=== PATIENT | female | born 1935 | race Caucasian/White ===

== ENCOUNTER 2018-03-12 17:09 | Emergency (ER) | payer MEDICARE ==
[~2018-03-12] VITALS: Ht 157.5 cm; Wt 68.0 kg
[~2018-03-12 17:09] MED LIST: AMITIZA24 MCG PO; ASPIR 8181 MG PO; IBUPROFEN200 MG PO; PROMETHAZINE HC25 M1 PO; SERTRALINE PO; SIMVASTATIN40 MG PO; SYNTHROID125 MCG; SYNTHROID175 MCG PO; TRIAMTERENE-HCTZ1 EA PO; TYLENOL WITH C1 EACH PO; ZOLOFT50 MG PO; [UNRECOGNIZED DRUG - OTHER]
--- OUTSIDE RECORDS SUMMARY | 2018-03-12 17:13 | XMS REPORT | Clinical Summary ---
Author Author [facility] Address Unknown Phone Unavailable Care Team Providers Care Dental Equipment Repairer Name Role Phone Shea Clifton MD PCP Allergies Comments Active Allergy Reactions Severity Noted Date Meperidine 10/28/2016 Medications End Date Status Medication Sig Dispensed Refills Start Date Active levothyroxine (SYNTHROID, Take 125 mcg 0 LEVOXYL) 125 mcg tablet by mouth every morning. Active simvastatin (ZOCOR) 40 MG Take 40 mg by 0 tablet mouth nightly. Active triamterene-hydrochloroth Take 1 tablet 0 iazid (MAXZIDE-25) by mouth 37.5-25 mg per tablet daily. Active Problems Not on file Encounters Care Team Description Date Type Specialty Cindi Solomon MD Closed dislocation of left index finger (Primary Dx); Other closed intra-articular fracture of distal end of left radius, initial encounter 01/17/2018 Emergency Emergency Medicine 01/17/2018 Travel after 03/11/2017 Immunizations Name Dates Previously Given Next Due Tdap 10/29/2016 Social History Date Tobacco Use Types Packs/Day Years Used Never Smoker Smokeless Tobacco: Never Used Alcohol Use Drinks/Week oz/Week Comments Yes SOCIALLY Sex Assigned at Date Recorded Not on file Industry Job Start Date Occupation Not on file Not on file Not on file Travel End Travel History Travel Start No recent travel history available. Last Filed Vital Signs Time Taken Vital Sign Reading 01/17/2018 12:43 PM [facility] Blood Pressure 142/73 01/17/2018 12:43 PM [facility] Pulse 74 01/17/2018 12:43 PM [facility]AL [facility] Temperature 37.1 C (98.7 F) 01/17/2018 12:43 PM [facility]AL [facility] Respiratory Rate 17 01/17/2018 12:43 PM [facility]AL [facility] Oxygen Saturation 100% - Inhaled Oxygen - Concentration 01/17/2018 9:21 AM [facility]IONAL DR[facility] Weight 63 kg (139 lb) 01/17/2018 9:21 AM [facility]IONAL DR[facility] Height 152.4 cm (5') 01/17/2018 9:21 AM [facility]IONAL DR[facility] Body Mass Index 27.15 Plan of Treatment Health Maintenance Due Date Last Done Comments SHINGLES VACCINES (1 of 09/04/1985 2) PNEUMOCOCCAL-13 09/04/2000 INFLUENZA VACCINE 09/27/2017 PNEUMOCOCCAL Completed 09/14/2017 POLYSACCHARIDE VACCINE AGE 65 AND OVER Procedures Comments Procedure Name Priority Date/Time Associated Diagnosis XR HAND 3+ VW LEFT STAT 01/17/2018 10:27 AM [facility]IONAL DRIVER XR WRIST 3+ VW LEFT STAT 01/17/2018 10:27 AM [facility]IONAL DRIVER MT APPLY LONG ARM SPLINT Routine 01/17/2018 9:26 AM REGIONAL DRIVER MT APPLY LONG ARM SPLINT Routine 01/17/2018 9:26 AM REGIONAL DRIVER after 03/11/2017 Results * XR Hand 3+ Vw Left (01/17/2018 10:27 AM REGIONAL DRIVER) Narrative Performed At EXAMINATION:XR HAND 3VW LEFT [facility] CLINICAL HISTORY:Fracturehand COMPARISON:None. There are severe arthritic changes noted about the hand. There is dorsal dislocation of the middle phalanx on the proximal phalanx of the ring finger with marked associated soft tissue swelling. No fracture is identified to limits of visualization. Severe arthritic changes about the metacarpal phalangeal joints and intercarpal and metacarpal carpal articulations greatest at the LONG-TERM joint of the thumb. IMPRESSION: Dislocation dorsally at the proximal interphalangeal joint of the middle phalanx on the proximal phalanx. [id number] Procedure Note Hm Interface, Radiology Results Incoming - 01/17/2018 10:45 AM REGIONAL DRIVER EXAMINATION: XR HAND 3 VW LEFT CLINICAL HISTORY: Fracture hand COMPARISON: None. There are severe arthritic changes noted about the hand. There is dorsal dislocation of the middle phalanx on the proximal phalanx of the ring finger with marked associated soft tissue swelling. No fracture is identified to limits of visualization. Severe arthritic changes about the metacarpal phalangeal joints and intercarpal and metacarpal carpal articulations greatest at the LONG-TERM joint of the thumb. IMPRESSION: Dislocation dorsally at the proximal interphalangeal joint of the middle phalanx on the proximal phalanx. [id number] Performing Organization Address [facility] [place] Phone Number [employer] [address] [place] [address] * XR Wrist 3+ Vw Left (01/17/2018 10:27 AM REGIONAL DRIVER) Narrative Performed At EXAMINATION:XR WRIST 3VW LEFT [facility] CLINICAL HISTORY:Fracturewrist COMPARISON:None. Findings: Left wrist: AP, lateral and oblique views: There is a mildly comminuted probable intraarticular fracture of the distal radius with some impaction of the fracture fragments. There appears to be involvement of the dorsal articular surface although this is minimal with only slight irregularity of the dorsal surface. There is minimal dorsal tilt of the smaller dorsal fragments there are no additional findings of significance other than severe arthritic changes noted. Soft tissue swelling is noted. Severe chondrocalcinosis is present IMPRESSION: Distal radial fracture as described [id number] Procedure Note Interface, Radiology Results Incoming - 01/17/2018 10:41 AM REGIONAL DRIVER EXAMINATION: XR WRIST 3 VW LEFT CLINICAL HISTORY: Fracture wrist COMPARISON: None. Findings: Left wrist: AP, lateral and oblique views: There is a mildly comminuted probable intraarticular fracture of the distal radius with some impaction of the fracture fragments. There appears to be involvement of the dorsal articular surface although this is minimal with only slight irregularity of the dorsal surface. There is minimal dorsal tilt of the smaller dorsal fragments there are no additional findings of significance other than severe arthritic changes noted. Soft tissue swelling is noted. Severe chondrocalcinosis is present IMPRESSION: Distal radial fracture as described [id number] Performing Organization Address [facility] Phone Number [employer] [employer] [facility] [address] [place] [address] * Splint Application (01/17/2018 9:26 AM REGIONAL DRIVER) Narrative Performed At Cindi Solomon MD 01/20/2018 12:16 AM Splint Application Performed by: Chandrakant Moreno PA-C Authorized by: Cindi Solomon MD Consent: Consent obtained:Verbal Consent given by:Patient Risks discussed:Discoloration, numbness, pain and swelling Alternatives discussed:No treatment Pre-procedure details: Sensation:Normal Skin color:Thank Procedure details: Laterality:Left Location: Left wrist left hand. Splint type:Sugar tong Supplies:Cotton padding, elastic bandage and Ortho-Glass Post-procedure details: Pain:Improved Sensation:Normal Skin color:[place] Patient tolerance of procedure:Tolerated well, no immediate complications Comments: Splint was extended to the digit secondary to the patient's fourth finger dislocation which was reduced and anatomically appropriate abrasion at left elbow was cleaned with normal saline Xeroform and Ian. * Orthopedic Injury Treatment (01/17/2018 9:26 AM REGIONAL DRIVER) Narrative Performed At Cindi Solomon MD 01/20/2018 12:16 AM Orthopedic Injury Treatment Performed by: Chandrakant Moreno PA-C Authorized by: Cindi Solomon MD Consent: Consent obtained:Verbal Consent given by:Patient Risks discussed:Pain and nerve damage Injury: Injury location: Left fourth finger. Pre-procedure assessment: Neurological function: normal Distal perfusion: normal Range of motion: reduced Sedation: Sedation type: None. Anesthesia (see MAR for exact dosages): Anesthesia method:None Procedure details: Manipulation performed: yes Skin traction used: yes Skeletal traction used: yes Pin inserted: no Reduction successful: yes X-ray confirmed reduction: no Immobilization:Splint Splint type:Sugar tong Supplies used:Cotton padding, elastic bandage and Ortho-Glass Post-procedure assessment: Neurological function: normal Distal perfusion: normal Range of motion: improved Patient tolerance of procedure:Tolerated well, no immediate complications after 03/11/2017 Insurance Payer Benefit Subscriber ID Type Phone Address Plan / Group MEDICARE MEDICARE xxxxxxxxxx Medicare [place], [place] PART A AND B AARP AARP xxxxxxxxx Commercial SUPPLEMENT Advance Directives Patient has advance care planning documents on file. For more information, fela alegre contact: George Gill [address] [place] [address]
[2018-03-12 17:46] LABS: BASOPHILS % 0.4 % (0.0-1.0); EOSINOPHILS # (AUTO) 0.1 (0.0-0.4); EOSINOPHILS % 1.7 % (0.0-6.0); HEMATOCRIT 35.2 % (34.2-44.1); HEMOGLOBIN 11.8 g/dL (12.0-16.0); LYMPHOCYTES # (AUTO) 1.8 (1.0-3.2); LYMPHOCYTES % 22.7 % (18.0-39.1); MEAN CORPUSCULAR HEMOGLOBIN 28.7 pg (28-32); MEAN CORPUSCULAR HGB CONC 33.5 g/dL (31-35); MEAN CORPUSCULAR VOLUME 85.6 fL (81-99); MONOCYTES # (AUTO) 0.7 (0.2-0.8); MONOCYTES % 8.9 % (4.4-11.3); NEUTROPHILS # (AUTO) 5.3 (2.1-6.9); NEUTROPHILS % 65.7 % (38.7-80.0); PLATELET COUNT 226 x10e3/uL (140-360); RED BLOOD COUNT 4.11 x10e6/uL (3.6-5.1); RED CELL DISTRIBUTION WIDTH 14.7 % (11.7-14.4)
[2018-03-12 18:12] LABS: INR 0.94; PROTHROMBIN TIME 13.4 seconds (11.9-14.5)
[2018-03-12 18:13] LABS: PARTIAL THROMBOPLASTIN TIME 31.3 seconds (23.8-35.5)
[2018-03-12 18:20] LABS: ALANINE AMINOTRANSFERASE 19 IU/L (0-55); ALBUMIN 3.7 g/dL (3.5-5.0); ALBUMIN/GLOBULIN RATIO 1.3 (0.8-2.0); ALKALINE PHOSPHATASE 99 IU/L (40-150); ANION GAP 12.1 mmol/L (8-16); BLOOD UREA NITROGEN 22 mg/dL (7-26); BUN/CREATININE RATIO 23 (6-25); CARBON DIOXIDE 24 mmol/L (22-29); CHLORIDE 104 mmol/L (98-107); CREATINE KINASE 79 IU/L (29-168); CREATININE, SERUM 0.96 mg/dL (0.57-1.11); EST GLOMERULAR FILTRATION RATE 56 ML/MIN (60-); GLUCOSE 96 mg/dL (74-118); POTASSIUM 4.1 mmol/L (3.5-5.1); SODIUM 136 mmol/L (136-145)
[2018-03-12] MEDS ORDERED: MORPHINE SULFATE 2 MG/ML SYR IV STA (18:35)
--- NOTE | 2018-03-12 18:36 | Diagnostic Imaging Report ---
CT BRAIN WO HISTORY: Fall, trauma COMPARISON: None. Technique: Noncontrast axial scans were obtained from skull base to the vertex. Coronal and sagittal reconstructions obtained from the axial data. One or more of the following dose reduction techniques were used: Automated exposure control, adjustment of the mA and/or kV according to patient size, and/or utilization of iterative reconstruction technique. DISCUSSION: Scalp/Skull: Unremarkable. Brain sulci: Mildly prominent. Ventricles: Compensatory dilatation. The temporal horn and atrium of the left lateral ventricle are slightly effaced. Extra-axial spaces: Acute, left hemispheric subdural hematoma measures up to 1.5 cm in thickness posteriorly (over the left parietal convexity). There is local mass effect with approximately 2 mm of left to right midline shift. No other significant brain herniation is seen. No additional masses or fluid collections. Carotid siphon and vertebral artery calcifications are present. Parenchyma: Encephalomalacia along the anterior and lateral left temporal lobe may be from remote trauma. Mild bilateral deep white matter hypodensity is likely chronic microvascular ischemic change. Otherwise, no masses, or large vascular territory acute infarct. Dural sinuses: No abnormal densities. Sellar/Suprasellar region: Intact. Skull base: Intact. 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 Trace fluid layers in the left sphenoid sinus. IMPRESSION: 1. Acute left hemispheric subdural hematoma measures up to 1.5 cm in thickness posteriorly (over the left parietal convexity). There is local mass effect with minimal [id number] midline shift. No other significant brain herniation. 2. No other acute intracranial abnormalities. 3. Anterior/lateral left temporal encephalomalacia may be from remote trauma. 4. Mild supratentorial chronic microvascular ischemic change. Mild generalized cerebral volume loss. Findings were discussed with Dr. Calero at 6:28 PM on 03/12/2018. Signed by: Dr. Carlos A Fabian M.D. on 03/12/2018 6:33 PM
[2018-03-12] MEDS ORDERED: MORPHINE SULFATE INJ 4 MG/ML INJ ONE (18:40)
[2018-03-12] MEDS ORDERED: ONDANSETRON HCL INJ 2 MG/ML VIAL ONE (18:41)
[2018-03-12] MEDS ORDERED: MORPHINE SULFATE INJ 4 MG/ML INJ IV ONE (19:00)
[2018-03-12] MEDS ORDERED: ONDANSETRON HCL INJ 2 MG/ML VIAL IV ONE (19:00)
--- NOTE | 2018-03-12 19:32 | Diagnostic Imaging Report ---
EXAMINATION: CT of the cervical spine HISTORY: Status post fall, laceration, pain COMPARISON: None available TECHNIQUE: Multidetector helical axial images were obtained without contrast from the foramen magnum to T1. The images were reconstructed using bone and soft tissue algorithms and were viewed in axial, sagittal and coronal planes. Dose modulation, iterative reconstruction, and/or weight based adjustment of the mA/kV was utilized to reduce the radiation dose to as low as reasonably achievable. FINDINGS: Alignment: Reversal of cervical lordosis with kyphotic malalignment C4 to C7. Minimal anterolistheses at C3-C4 and at C7-T1. Soft tissues: Normal Vertebrae: Normal height and density. No acute fracture, infection or neoplasm. Anterior bridging osteophyte from C5 to T2. Degenerative changes: C1-C2: Prominent degenerative changes with ossification of the atlantodental interval ligaments. No significant stenoses. C2-C3: Facet arthrosis on ossification of the ligamenta flava without significant stenoses. C3-C4: Facet arthropathies mainly on the right side and ligamenta flava ossification. No significant stenoses. C4-C5: Disc osteophyte complex formation, bilateral uncovertebral and facet arthrosis. Severe bilateral foraminal stenosis. C5-C6: Disc osteophyte complex formation, bilateral uncovertebral and to a lesser extent facet arthrosis. Mild spinal canal and moderate foraminal stenosis. C6-C7: Disc osteophyte complex formation and bilateral uncovertebral arthrosis. Moderate severe left foraminal stenoses. C7-T1: Mild facet arthrosis without stenosis. IMPRESSION: 1. No acute cervical spine postraumatic abnormalities. 2. Multilevel chronic degenerative changes with canal and foraminal narrowing as detailed above. Note: Acute postraumatic spinal cord, vascular or ligamentous injuries cannot adequately be assessed by CT. Signed by: Dr. Sanaz Jones M.D. on 03/12/2018 7:29 PM
[2018-03-12 19:44] VITALS: BP 137/88
== END 2018-03-12 20:16 | disposition other institution (70) ==
LOC: ER 17:09
DX: S06.5X0A Traumatic subdural hemorrhage without loss of consciousness, initial encounter (principal); S01.01XA Laceration without foreign body of scalp, initial encounter; R42 Dizziness and giddiness; W18.39XA Other fall on same level, initial encounter; Y92.488 Other paved roadways as the place of occurrence of the external cause; I10 Essential (primary) hypertension; E03.9 Hypothyroidism, unspecified
CPT/HCPCS: 12001; 36415; 70450; 72125; 80053; 82550; 82553; 84484; 85025; 85610; 85730; 93005; 99284; J2270; J2405

== ENCOUNTER 2018-08-06 13:03 | Emergency (ER) | payer MEDICARE ==
[~2018-08-06] VITALS: Ht 157.5 cm; Wt 68.0 kg
--- OUTSIDE RECORDS SUMMARY | 2018-08-06 13:08 | XMS REPORT ---
Author Author [facility] Address Unknown Phone Unavailable Care Team Providers Care Financial Recording Clerk Name Role Phone Elda NAVARRO Unavailable Unavailable Payers Payer Name Policy Type Policy Number Effective Date Expiration Date Problems This patient has no known problems. Allergies, Adverse Reactions, Alerts Allergy Name Allergy Type Status Severity Reaction(s) Onset Date Inactive Date Treating Clinician Comments sumatriptan DA Active SV 2017-09-01 00:00:00 Medications This patient has no known medications. Results Test Description Test Time Test Comments Text Results Atomic Results Result Comments CT CERVICAL SPINE WO 2018-03-12 19:25:00 [place] [address] Patient Name: TANJA PEÑALOAZ V MR #: [id number] : 1935 Age/Sex: 82/F Req #: [id number] Adm Physician: Ordered by: KIKI NAVARRO MD Report #: [id number] Location: ER Room/Bed: Procedure: [id number] CT/CT CERVICAL SPINE WO Exam Date: Exam Time: REPORT STATUS: Signed EXAMINATION: CT of the cervical spine HISTORY: Status post fall, laceration, pain COMPARISON: None available TECHNIQUE: Multidetector helical axial images were obtained without contrast from the foramen magnum to T1. The images were reconstructed using bone and soft tissue algorithms and were viewed in axial, sagittal and coronal planes. Dose modulation, iterative reconstruction, and/or weight based adjustment of the mA/kV was utilized to reduce the radiation dose to as low as reasonably achievable. FINDINGS: Alignment: Reversal of cervical lordosis with kyphotic malalignment C4 to C7. Minimal anterolistheses at C3-C4 and at C7-T1. Soft tissues: Normal Vertebrae: Normal height and density. No acute fracture, infection or neoplasm. Anterior bridging osteophyte from C5 to T2. Degenerative changes: C1-C2: Prominent degenerative changes with ossification of the atlantodental interval ligaments. No significant stenoses. C2-C3: Facet arthrosis on ossification of the li gamenta flava without significant stenoses. C3-C4: Facet arthropathies mainly on the right side and ligamenta flava ossification. No significant stenoses. C4-C5: Disc osteophyte complex formation, bilateral uncovertebral and facet arthrosis. Severe bilateral foraminal stenosis. C5-C6: Disc osteophyte complex formation, bilateral uncovertebral and to a lesser extent facet arthrosis. Mild spinal canal and moderate foraminal stenosis. C6-C7: Disc osteophyte complex formation and bilateral uncovertebral arthrosis. Moderate severe left foraminal stenoses. C7-T1: Mild facet arthrosis without stenosis. IMPRESSION: 1. No acute cervical spine postraumatic abnormalities. 2. Multilevel chronic degenerative changes with canal and foraminal narrowing as detailed above. Note: Acute postraumatic spinal cord, vascular or ligamentous injuries cannot adequately be assessed by CT. Signed by: Dr. Sanaz Jones M.D. on 03/12/2018 7:29 PM Dictated By: SANAZ JONES MD 28 Transcribed By: IVETT on 03/12/181928 COPY TO: KIKI NAVARRO MD CT BRAIN WO 2018-03-12 18:21:00 [place] [address] Patient Name: TANJA PEÑALOZA V MR #: [id number] : 1935 Age/Sex: 82/F Req #: [id number] Adm Physician: Ordered by: KIKI NAVARRO MD Report #: [id number] Location: ER Room/Bed: Procedure: [id number] CT/CT BRAIN WO Exam Date: Exam Time: REPORT STATUS: Signed CT BRAIN WO HISTORY: Fall, trauma COMPARISON: None. Technique: Noncontrast axial scans were obtained from skull base to the vertex. Coronal and sagittal reconstructions obtained from the axial data. One or more of the following dose reduction techniques were used: Automated exposure control, adjustment of the mA and/or kV according to patient size, and/or utilization of iterative reconstruction technique. DISCUSSION: Scalp/Skull: Unrema rkable. Brain sulci: Mildly prominent. Ventricles: Compensatory dilatation. The temporal horn and atrium of the left lateral ventricle are slightly effaced. Extra-axial spaces: Acute, left hemispheric subdural hematoma measures up to 1.5 cm in thickness posteriorly (over the left parietal convexity). There is local mass effect with approximately 2 mm of left to right midline shift. No other significant brain herniation is seen. No additional masses or fluid collections. Carotid siphon and vertebral artery calcifications are present. Parenchyma: Encephalomalacia along the anterior and lateral left temporal lobe may be from remote trauma. Mild bilateral deep white matter hypodensity is likely chronic microvascular ischemic change. Otherwise, no masses, or large vascular territory acute infarct. Dural sinuses: No abnormal densities. Sellar/Suprasellar region: Intact. Skull base: Intact. 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 Trace fluid layers in the left sphenoid sinus. IMPRESSION: 1. Acute left hemispheric subdural hematoma measures up to 1.5 cm in thickness posteriorly (over the left parietal convexity). There is local mass effect with minimal [id number] midline shift. No other significant brain herniation. 2. No other acute intracranial abnormalities. 3. Anterior/lateral left temporal encephalomalacia may be from remote trauma. 4. Mild supratentorial chronic microvascular ischemic change. Mild generalized cerebral volume loss. Findings were discussed with Dr. Navarro at 6:28 PM on 03/12/2018. Signed by: Dr. Carlos A Fabian M.D. on 03/12/2018 6:33 PM Dictated By: CARLOS A FABIAN MD [id number] Transcribed By: IVETT on 03/12/18 1833 COPY TO: KIKI NAVARRO MD
--- OUTSIDE RECORDS SUMMARY | 2018-08-06 13:08 | XMS REPORT | Clinical Summary ---
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 Patient states that she can take the GENERIC. Sumatriptan Swelling High 08/18/2016 Medications End Date Status Medication Sig Dispensed Refills Start Date Active losartan (COZAAR) 100 MG 0 tablet 8 Active pantoprazole (PROTONIX) 0 40 MG EC tablet 8 Active simvastatin (ZOCOR) 80 MG 0 tablet 8 Active diclofenac sodium 3 % gel 0 8 Active biotin 1 mg capsule Take by 0 mouth. Active SUMAtriptan (IMITREX) 100 Take 1 tablet 9 tablet 11 MG tablet (100 mg 8 total) by mouth once as needed for migraine for up to 1 dose. May repeat in 2 hours if unresolved. Max 2/d Active XYZBAC 1-5-50 mg tablet 0 8 Active VITAMIN D2 50,000 unit TAKE 1 12 capsule 3 capsuleIndications: CAPSULE BY 9 Vitamin D deficiency MOUTH ONCE A WEEK FOR VITAMIN D DEFICIENCY 08/25/2017 Discontinued coQ10, ubiquinol, 200 mg Take 1 0 capsule capsule by mouth daily. 08/18/2017 montelukast (SINGULAIR) Take 1 tablet 30 tablet 11 10 mg tablet (10 mg total) 7 by mouth nightly. 05/30/2018 Discontinued ergocalciferol (VITAMIN Take 1 12 capsule 3 D2) 50,000 unit capsule 8 capsuleIndications: (50,000 Units Vitamin D deficiency total) by mouth once a week. For vitamin D deficiency Active Problems Problem Noted Date Bilateral foot pain 06/05/2017 Deviated septum 06/05/2017 Vitamin D deficiency 08/19/2016 Exercise-induced asthma 08/18/2016 History of tubal ligation 08/18/2016 Family history of diabetes mellitus 08/18/2016 [place] (obstructive sleep apnea) 08/18/2016 Chronic fatigue 08/18/2016 Abnormal weight gain 08/18/2016 Essential hypertension 08/18/2016 Nocturia more than twice per night 08/18/2016 Allergic rhinitis 08/18/2016 Nonintractable episodic headache 08/18/2016 BMI 40.0-44.9, adult 08/18/2016 Resolved Problems Problem Noted Date Resolved Date Periorbital edema 06/05/2017 08/25/2017 Acute bronchitis 08/18/2016 08/25/2017 Overview: unimproved after 2 weeks. Requests ABX, reasonable to try as she is having a "second wave" of illness. Encounters Care Team Description Date Type Specialty Jenelle Srivastava DO Vitamin D deficiency 05/30/2018 Refill Family Medicine Jenelle Srivastava DO Vitamin D deficiency (Primary Dx); Fatigue, unspecified type; Essential hypertension; Familial hypercholesterolemia 02/15/2018 Telephone Family Medicine Jenelle Srivastava, 02/12/2018 Telephone Family Medicine Jenelle Srivastava DO Preop examination (Primary Dx); Essential hypertension; Exercise-induced asthma; [place] (obstructive sleep apnea); Bilateral foot pain 10/19/2017 Office Visit Family Medicine Jenelle Srivastava DO Bilateral foot pain (Primary Dx); Essential hypertension 10/16/2017 Orders Only Family Jenelle Purcell, 10/16/2017 Telephone Family Medicine Jenelle Srivastava DO Preop examination (Primary Dx); Bilateral foot pain; [place] (obstructive sleep apnea) mild, opted not to use CPAP; Exercise-induced asthma; Essential hypertension 08/25/2017 Office Visit Family Medicine after 08/05/2017 Family History Medical History Relation Name Comments COPD Maternal Aunt Early Maternal Aunt Hypertension Maternal Aunt Diabetes Maternal Grandmother Early Maternal NC Uncle Stroke Maternal Uncle Early Mother Heart disease Mother Hypertension Mother Stroke Mother Cancer Other Great Breast Grandmother Matern Alcohol abuse Paternal Grandfather Cancer Paternal Prostate Grandfather Relation Name Status Comments Maternal Aunt Maternal Grandmother Maternal Uncle Mother Other Great Alive Grandmother Matern Paternal Grandfather Social History Date Tobacco Use Types Packs/Day Years Used Never Smoker Smokeless Tobacco: Never Used Alcohol Use Drinks/Week oz/Week Comments Yes Occasionally Sex Assigned at Date Recorded Not on file Industry Job Start Date Occupation Not on file Not on file Not on file Travel End Travel History Travel Start No recent travel history available. Last Filed Vital Signs Time Taken Vital Sign Reading 10/19/2017 8:20 AM CDT Blood Pressure 136/78 10/19/2017 8:20 AM CDT Pulse 99 - Temperature - - Respiratory Rate - 10/19/2017 8:20 AM CDT Oxygen Saturation 99% - Inhaled Oxygen - Concentration 10/19/2017 8:20 AM CDT Weight 121 kg (267 lb) 10/19/2017 8:20 AM CDT Height 174 cm (5' 8.5") 10/19/2017 8:20 AM CDT Body Mass Index 40.01 Plan of Treatment Health Maintenance Due Date Last Done Comments INFLUENZA VACCINE 09/27/2018 Procedures Comments Procedure Name Priority Date/Time Associated Diagnosis VITAMIN D 25 HYDROXY Routine 03/08/2018 Vitamin D deficiency LEVEL 11:59 AM ENTEROSTOMAL NURSE Fatigue, unspecified type LIPID PANEL Routine 03/08/2018 Vitamin D deficiency 11:59 AM ENTEROSTOMAL NURSE Fatigue, unspecified type Essential hypertension Familial hypercholesterolemia COMPREHENSIVE METABOLIC Routine 03/08/2018 Vitamin D deficiency PANEL 11:59 AM ENTEROSTOMAL NURSE Fatigue, unspecified type Essential hypertension Familial hypercholesterolemia CBC WITH PLATELET AND Routine 03/08/2018 Vitamin D deficiency DIFFERENTIAL 11:59 AM ENTEROSTOMAL NURSE Fatigue, unspecified type Essential hypertension Familial hypercholesterolemia CBC WITH PLATELET AND Routine 10/19/2017 Preop examination DIFFERENTIAL 8:54 AM CDT Essential hypertension Exercise-induced asthma [place] (obstructive sleep apnea) Bilateral foot pain COMPREHENSIVE METABOLIC Routine 10/19/2017 Preop examination PANEL 8:54 AM CDT Essential hypertension Exercise-induced asthma [place] (obstructive sleep apnea) Bilateral foot pain COMPREHENSIVE METABOLIC Routine 08/25/2017 Preop examination PANEL 11:55 AM CDT Bilateral foot pain [place] (obstructive sleep apnea) mild, opted not to use CPAP Exercise-induced asthma CBC WITH PLATELET AND Routine 08/25/2017 Preop examination DIFFERENTIAL 11:55 AM CDT Bilateral foot pain [place] (obstructive sleep apnea) mild, opted not to use CPAP Exercise-induced asthma after 08/05/2017 Results * Vitamin D 25 hydroxy level (03/08/2018 11:59 AM ENTEROSTOMAL NURSE) Pathologist [facility] Vitamin D, 53 30 - 100 ng/mL [facility] 25-hydroxy Comment: DIAGNOSTICS Vitamin D [place] Status 25-OH Vitamin D: Deficiency: <20 ng/mL Insufficiency: 20 - 29 ng/mL Optimal: > or=30 ng/mL For 25-OH Vitamin D testing on patients on D2-supplementation and patients for whom quantitation of D2 and D3 fractions is required, the QuestAssureD(TM) 25-OH VIT D, (D2,D3), LC/MS/MS is recommended: order code 75741 (patients >2yrs). For more information on this test, go to: http://education.Genesco/faq/QXE868 (This link is being provided for informational/educational purposes only.) Specimen Blood Narrative Performed At FASTING:YES [facility] FASTING: YES Resulting Agency Comment Performing Organization Information: Site ID: [id number] Name: [facility] Address: [address] [place] [id number] Director: Maya iNxon Performing Organization Address City/State/Zipcode Phone Number [employer] [place] [address] [place] [address] * CBC with platelet and differential (03/08/2018 11:59 AM ENTEROSTOMAL NURSE) Only the most recent of 3 results within the time period is included. [facility] WBC 6.1 3.8 - 10.8 [facility] Thousand/uL [facility] RBC 4.55 3.80 - 5.10 [facility] Million/uL [facility] HGB 13.5 11.7 - 15.5 g/dL [employer] [facility] HCT 39.6 35.0 - 45.0 % [employer] [facility] MCV 87.0 80.0 - 100.0 fL [facility] MCH 29.7 27.0 - 33.0 pg [employer] [facility] MCHC 34.1 32.0 - 36.0 g/dL [employer] [place] RDW 14.4 11.0 - 15.0 % [facility] [place] Platelet count 358 140 - 400 [facility] Thousand/uL [facility] [place] MPV 10.0 7.5 - 12.5 fL [facility] [place] Neutrophils, 3,745 1,500 - 7,800 [facility] absolute cells/uL [facility] [place] Lymphocytes, 1,495 850 - 3,900 cells/uL [facility] absolute [facility] [place] Monocytes, 671 200 - 950 cells/uL [facility] absolute [facility] [place] Eosinophils, 128 15 - 500 cells/uL [facility] absolute [facility] [place] Basophils, 61 0 - 200 cells/uL [facility] absolute [facility] [place] Neutrophils 61.4 % [facility] [place] Lymphocytes 24.5 % [facility] [place] Monocytes 11.0 % [facility] [place] Eosinophils 2.1 % [facility] [place] Basophils + RC 1.0 % [facility] [place] Specimen Blood Narrative Performed At FASTING:YES [facility] FASTING: YES Resulting Agency Comment Performing Organization Information: Site ID: [id number] Name: [facility] Address: [address] [place] [id number] Director: Maya Nixon Performing Organization Address City/State/Zipcode Phone Number [facility] [employer] [place] [phone] * Lipid panel (03/08/2018 11:59 AM ENTEROSTOMAL NURSE) Cholesterol, 150 <200 mg/dL [facility] total [facility] [place] HDL cholesterol 50 (L) >50 mg/dL [facility] [place] Triglycerides 108 <150 mg/dL [facility] [place] LDL cholesterol 80 mg/dL (calc) [facility] calculated Comment: DIAGNOSTICS Reference range: <100 [place] Desirable range <100 mg/dL for primary prevention; <70 mg/dL for patients with CHD or diabetic patients with > or=2 CHD risk factors. LDL-C is now calculated using the Emanuel-Cyndi calculation, which is a validated novel method providing better accuracy than the Friedewald equation in the estimation of LDL-C. Emanuel COSTA et al. KEVAN. 2013;310(19): 4436-7196 (http://education.Zhitu.com/faq/ELH233) Cholesterol/HDL 3.0 <5.0 (calc) [facility] ratio [facility] [place] Non-HDL 100 <130 mg/dL (calc) [facility] cholesterol Comment: DIAGNOSTICS For patients with diabetes [place] plus 1 major ASCVD risk factor, treating to a non-HDL-C goal of <100 mg/dL (LDL-C of <70 mg/dL) is considered a therapeutic option. Specimen Blood Narrative Performed At FASTING:YES [facility] FASTING: YES Resulting Agency Comment Performing Organization Information: Site ID: [id number] Name: [id number] [facility] Address: [address] [place] [address] Director: Maya Nixon Performing Organization Address City/State/Zipcode Phone Number [facility] [employer] [place] [address] [place] [address] * Comprehensive metabolic panel (03/08/2018 11:59 AM ENTEROSTOMAL NURSE) Only the most recent of 3 results within the time period is included. Glucose 107 (H) 65 - 99 mg/dL [facility] Comment: DIAGNOSTICS [facility] reference interval For someone without known diabetes, a glucose value between 100 and 125 mg/dL is consistent with prediabetes and should be confirmed with a follow-up test. BUN, whole 11 7 - 25 mg/dL [facility] blood [facility] [place] Creatinine 0.61 0.50 - 1.10 mg/dL [facility] [place] EGFR Non-Afr. 109 > OR=60 [facility] Finnish mL/min/1.73m2 [facility] [place] EGFR 127 > OR=60 [facility] Finnish mL/min/1.73m2 [facility] [place] BUN/creatinine NOT APPLICABLE 6 - 22 (calc) [facility] ratio [facility] [place] Sodium 137 135 - 146 mmol/L [facility] [place] Potassium 4.3 3.5 - 5.3 mmol/L [facility] [place] Chloride 102 98 - 110 mmol/L [facility] [place] CO2 27 20 - 32 mmol/L [facility] [place] Calcium 9.9 8.6 - 10.2 mg/dL [facility] [place] Protein 7.4 6.1 - 8.1 g/dL [facility] [place] Albumin, S 4.5 3.6 - 5.1 g/dL [facility] [place] Globulin, total 2.9 1.9 - 3.7 g/dL [facility] (calc) [facility] [place] Albumin/globuli 1.6 1.0 - 2.5 (calc) [facility] n ratio [facility] [place] Total bilirubin 0.4 0.2 - 1.2 mg/dL [facility] [place] Alkaline 59 33 - 115 U/L [facility] phosphatase [facility] [place] AST 21 10 - 35 U/L [facility] [place] ALT 30 (H) 6 - 29 U/L [facility] [place] Specimen Blood Narrative Performed At FASTING:YES [facility] FASTING: YES Resulting Agency Comment Performing Organization Information: Site ID: [id number] Name: [facility] Address: [address] [place] [address] Director: Maya Nixon Performing Organization Address City/State/Zipcode Phone Number [place] [employer] [place] [address] [place] [address] after 08/05/2017 Insurance Type Payer Benefit Subscriber ID Effective Phone Address Plan / Dates Group HMO CIGNA CIGNA OPEN xxxxxxxxxxx [id number] ACCESS/NET resent WORK Advance Directives Patient has advance care planning documents on file. For more information, fela alegre contact: George Gill [address] [place] [address]
[2018-08-06] MEDS ORDERED: HYDROMORPHONE 1MG/1ML INJ IV STA (13:51)
[2018-08-06] MEDS ORDERED: HYDROMORPHONE 2MG/ML 2 MG/ML ML IV ONE (14:00)
[2018-08-06] MEDS ORDERED: ONDANSETRON HCL INJ 2MG/ML 2ML 2 MG/ML VIAL IV ONE (14:00)
[2018-08-06 14:18] LABS: BASOPHILS % 0.2 % (0.0-1.0); EOSINOPHILS # (AUTO) 0.1 (0.0-0.4); EOSINOPHILS % 0.4 % (0.0-6.0); HEMATOCRIT 38.9 % (34.2-44.1); HEMOGLOBIN 13.2 g/dL (12.0-16.0); LYMPHOCYTES # (AUTO) 1.5 (1.0-3.2); LYMPHOCYTES % 10.5 % (18.0-39.1); MEAN CORPUSCULAR HEMOGLOBIN 28.2 pg (28-32); MEAN CORPUSCULAR HGB CONC 33.9 g/dL (31-35); MEAN CORPUSCULAR VOLUME 83.1 fL (81-99); MONOCYTES # (AUTO) 0.9 (0.2-0.8); NEUTROPHILS # (AUTO) 11.7 (2.1-6.9); NEUTROPHILS % 82.3 % (38.7-80.0); PLATELET COUNT 290 x10e3/uL (140-360); RED BLOOD COUNT 4.68 x10e6/uL (3.6-5.1); RED CELL DISTRIBUTION WIDTH 15.1 % (11.7-14.4)
[2018-08-06 14:27] LABS: INR 0.99; PARTIAL THROMBOPLASTIN TIME 31.9 seconds (23.8-35.5); PROTHROMBIN TIME 13.6 seconds (11.9-14.5)
[2018-08-06 14:32] LABS: ANION GAP 11.5 mmol/L (8-16); BLOOD UREA NITROGEN 15 mg/dL (7-26); BUN/CREATININE RATIO 18 (6-25); CALCIUM 10.3 mg/dL (8.4-10.2); CARBON DIOXIDE 22 mmol/L (22-29); CHLORIDE 104 mmol/L (98-107); CREATININE, SERUM 0.85 mg/dL (0.57-1.11); EST GLOMERULAR FILTRATION RATE > 60 ML/MIN (60-); GLUCOSE 94 mg/dL (74-118); POTASSIUM 3.5 mmol/L (3.5-5.1); SODIUM 134 mmol/L (136-145)
--- NOTE | 2018-08-06 14:42 | Diagnostic Imaging Report ---
Chest, 1 view, 08/06/2018. History: Fall. Comparison: None available. Findings: The cardiomediastinal silhouette and pulmonary vasculature are mildly prominent. There is no focal consolidation or pleural effusion. Degenerative changes are present in both shoulders and throughout the thoracic spine. There are no acute osseous or soft tissue abnormalities. Impression: Mild cardiomegaly and vascular congestion. Signed by: David Portillo on 08/06/2018 2:39 PM
--- NOTE | 2018-08-06 14:46 | Diagnostic Imaging Report ---
Right elbow, 3 views. History: Fall, trauma to the elbow. Findings: Joint effusion is present as well as posterior soft tissue swelling. Bone mineralization is normal. A comminuted fracture of the olecranon is present with posterior displacement of the proximal fragments.. There are no lytic or sclerotic lesions. The joint spaces are within normal limits. IMPRESSION: Comminuted olecranon fracture with joint effusion. Signed by: David Portillo on 08/06/2018 2:43 PM
--- NOTE | 2018-08-06 15:04 | Diagnostic Imaging Report ---
Right hip and pelvis, 2 views. History: Fall. Findings: The soft tissues are normal. Bone mineralization is normal. There is no evidence of fracture or dislocation. There are no lytic or sclerotic lesions. Degenerative changes are present. IMPRESSION: Right hip DJD. No acute osseous abnormality. Signed by: David Portillo on 08/06/2018 3:01 PM
--- NOTE | 2018-08-06 15:34 | NUR ---
splint and sling applied to right arm
[2018-08-06 15:46] LABS: BILIRUBIN,URINE NEGATIVE (NEGATIVE); CLARITY,URINE CLEAR (CLEAR); KETONES,URINE NEGATIVE (NEGATIVE); LEUKOCYTE ESTERASE ,URINE NEGATIVE (NEGATIVE); NITRITE,URINE NEGATIVE (NEGATIVE); PROTEIN,URINE DIPSTICK NEGATIVE (NEGATIVE); URINE UROBILINOGEN 0.2 mg/dL (0.2 - 1)
[2018-08-06 15:48] LABS: COLOR,URINE COLORLESS (YELLOW)
[2018-08-06 16:00] LABS: RBC,URINE 0-5 /HPF (0-5)
[2018-08-06] MEDS ORDERED: HYDROCODONE/APAP 10MG-325MG TAB PO ONE (17:15)
--- NOTE | 2018-08-06 18:49 | Diagnostic Imaging Report ---
EXAM: CT HIP RIGHT WO DATE: 08/06/2018 3:57 PM INDICATION: 82-year-old female, status post fall with injury to the right hip COMPARISON: None TECHNIQUE: The right hip was scanned using a multidetector helical scanner. Coronal and sagittal reformations were obtained with both bone and soft tissue kernel Reformation. CT low dose techniques were utilized, as applicable. IV Contrast: 0 ml Isovue 300/370 FINDINGS: Lack of IV contrast decreases sensitivity in evaluating abdominal and pelvic organs. Bones: No fracture or dislocation. No aggressive osseous lesion. Joints: Degenerative changes at the pubic symphysis. Moderate right hip joint space loss and marginal osteophyte formation. Soft tissue: Mild soft tissue stranding over the right hip over the greater trochanter with no underlying injury. Colonic diverticulosis. Chronic tendinopathy of the hamstring origin on the right. IMPRESSION: No acute abnormality. Signed by: Maurice Penn MD on 08/06/2018 6:46 PM
== END 2018-08-06 19:20 | disposition home or self-care (01) ==
LOC: ER 13:03
DX: S52.021A Displaced fracture of olecranon process without intraarticular extension of right ulna, initial encounter for closed fracture (principal); S70.01XA Contusion of right hip, initial encounter; W01.0XXA Fall on same level from slipping, tripping and stumbling without subsequent striking against object, initial encounter; Y92.008 Other place in unspecified non-institutional (private) residence as the place of occurrence of the external cause; I10 Essential (primary) hypertension; E03.9 Hypothyroidism, unspecified; Z87.828 Personal history of other (healed) physical injury and trauma
CPT/HCPCS: 29105; 36415; 71045; 73080; 73502; 73700; 80048; 81001; 85025; 85610; 85730; 87086; 99284; J1170; J2405

== ENCOUNTER → 2018-08-15 | Outpatient (CLI) | payer MEDICARE ==
[~2018-08-15] MED LIST changes: +PROZAC20 MG PO; +WELLBUTRIN SR150 MG PO
--- NOTE | 2018-08-15 20:34 | Diagnostic Imaging Report ---
Bone Scan, three-phase Reason for exam: 82 F with primary osteoarthritis; she has had 4 falls in the past 6 months, most recently 10 days ago. She has right-sided bone pain. SHe has known right elbow fracture. Radiopharmaceutical: Tc-99m MDP 26 mCi Comparison: Right elbow radiograph 08/06/2018; right hip radiograph 08/06/2018; CT right hip 08/06/2018 Following intravenous administration of the radiopharmaceutical, dynamic flow and immediate blood pool images of the pelvis and hips followed by delayed total body and selected spot images were obtained. Flow and blood pool images show diffusely symmetric distribution of tracer activity to the pelvis and hips with subtle focal increased tracer in the region of the right greater trochanter. Delayed planar images show increased tracer in the right elbow, consistent with known fracture. Mild degenerative changes are seen in the cervical and upper to mid thoracic spine and in the left sternoclavicular junction. Focal mildly increased tracer at the anterior ends of the 6th, 7th and 8th left ribs is also consistent with previous trauma. Markedly increased tracer is seen in the sacrum and bilateral sacral alae contiguously. Markedly increased tracer is seen in the intertrochanteric right femur. Increased tracer activity is noted in the soft tissues of the right upper extremity related to recent fracture. Mildly increased tracer is seen in the soft tissues adjacent to the right hip. Impression: 1. Osteoblastic process in the right elbow consistent with known fracture. 2. An acute sacral insufficiency fracture is present. 3. An acute right intertrochanteric fracture is present. 4. Results called to Dr. Harleen Dai at 8:25 pm on 08/15/2018. Signed by: Dr. Marietta Ralph M.D. on 08/15/2018 8:30 PM
== END ==
LOC: NM 13:01
PROVIDERS: ATTEND Specialist
DX: M16.11 Unilateral primary osteoarthritis, right hip (principal)
CPT/HCPCS: 78306; A9503

== ENCOUNTER 2018-08-16 14:06 | Inpatient (IN) | payer MEDICARE ==
[~2018-08-16] VITALS: Ht 157.5 cm; Wt 64.4 kg
--- NOTE | 2018-08-16 13:15 | NUR ---
RECEIVED PATIENT TO FLOOR. PATIENT A/O X3, EVEN RESPIRATIONS ON RA. BOWEL SOUNDS ACTIVE, SKIN INTACT, NO EDEMA. RIGHT ARM WRAPPED WITH NELSON BANDAGE D/T ELBOW FX. PATIENT UNABLE TO AMBULATE AT THIS TIME D/T RIGHT HIP FX. LEFT WRIST [address] GAUGE IV SL. FOOT PUMPS IN PLACE. FAMILY AT BEDSIDE. VS STABLE. CALL LIGHT IN REACH. WILL CONTINUE TO MONITOR PATIENT.
[2018-08-16 13:30] VITALS: BP 141/75
[~2018-08-16 14:06] MED LIST changes: -PROZAC20 MG PO; -WELLBUTRIN SR150 MG PO
--- OUTSIDE RECORDS SUMMARY | 2018-08-16 14:11 | XMS REPORT | Clinical Summary ---
Author Author [facility] Address Unknown Phone Unavailable Care Team Providers Care [facility] [employer] Name Role Phone Shea Clifton MD PCP Allergies Comments Active Allergy Reactions Severity Noted Date Meperidine 10/28/2016 Medications End Date Status Medication Sig Dispensed Refills Start Date Active levothyroxine (SYNTHROID, Take 125 mcg 0 LEVOXYL) 125 mcg tablet by mouth every morning. Active simvastatin (ZOCOR) 40 MG Take 40 mg by 0 tablet mouth nightly. Active buPROPion XL (WELLBUTRIN 150 mg=1 tab, 0 XL) 150 MG 24 hr tablet PO, Q24H, # 9 30 tab, 0 Refill(s) Active FLUoxetine (PROzac) 20 MG 20 mg=1 cap, 0 capsule PO, Daily, # 9 30 cap, 0 Refill(s) Active multivitamin (THERAGRAN) Take 1 tablet 0 tablet by mouth daily. Active calcium carbonate Take 1 tablet 0 (CALCIUM 500 ORAL) by mouth daily. Active loratadine (CLARITIN) 10 Take 10 mg by 0 mg tablet mouth daily. 06/06/2018 Discontinued triamterene-hydrochloroth Take 1 tablet 0 iazid (MAXZIDE-25) by mouth 37.5-25 mg per tablet daily. Active Problems Problem Noted Date Multiple falls 06/06/2018 Gait difficulty 06/06/2018 Chronic midline low back pain with left-sided sciatica 06/06/2018 Postural dizziness 04/17/2018 Encounter for audiology evaluation 04/17/2018 Encounters Care Team Description Date Type Specialty Abigail Escudero MD Unspecified abnormalities of gait and mobility (Primary Dx); Repeated falls; Low back pain with left-sided sciatica, unspecified back pain laterality, unspecified chronicity; Other malaise 07/26/2018 Transcribe Physical Therapy Orders Holly Vines MA 06/18/2018 Telephone Neurology Abigail Escudero MD Chronic midline low back pain with left-sided sciatica 06/13/2018 Hospital Radiology Encounter Abigail Escudero MD Gait difficulty (Primary Dx); Multiple falls; Chronic midline low back pain with left-sided sciatica; Peripheral nerve disease; Physical deconditioning 06/06/2018 Office Visit Neurology Jermaine Perla MD Postural dizziness (Primary Dx); Encounter for audiology evaluation; Sensorineural hearing loss, bilateral 04/17/2018 Office Visit Otolaryngology Cindi Solomon MD Closed dislocation of left index finger (Primary Dx); Other closed intra-articular fracture of distal end of left radius, initial encounter 01/17/2018 Emergency Emergency Medicine 01/17/2018 Travel after 08/15/2017 Immunizations Name Dates Previously Given Next Due Tdap 10/29/2016 Family History Medical History Relation Name Comments No Known Problems Father Alzheimer's disease Mother Relation Name Status Comments Father (Age 94) Mother (Age 85) Social History Date Tobacco Use Types Packs/Day Years Used Never Smoker Smokeless Tobacco: Never Used Alcohol Use Drinks/Week oz/Week Comments Yes 1 Standard 0.6 drinks or equivalent Sex Assigned at Date Recorded Not on file Industry Job Start Date Occupation Not on file Not on file Not on file Travel End Travel History Travel Start No recent travel history available. Last Filed Vital Signs Time Taken Vital Sign Reading 06/06/2018 8:25 AM CDT Blood Pressure 132/88 06/06/2018 8:25 AM CDT Pulse 80 01/17/2018 12:43 PM [employer] Temperature 37.1 C (98.7 F) 01/17/2018 12:43 PM [employer] Respiratory Rate 17 01/17/2018 12:43 PM [employer] Oxygen Saturation 100% - Inhaled Oxygen - Concentration 06/06/2018 8:23 AM CDT Weight 60.8 kg (134 lb) 06/06/2018 8:23 AM CDT Height 152.4 cm (5') 06/06/2018 8:23 AM CDT Body Mass Index 26.17 Plan of Treatment Care Team Description Date Type Specialty Abigail Escudero MD [address] [facility] [address] [place] [address] [phone] 10/08/2018 Office Visit Neurology Health Maintenance Due Date Last Done Comments SHINGLES VACCINES (#1) 09/04/1985 65+ PNEUMOCOCCAL VACCINE 09/04/2000 (1 of 2 - PCV13) INFLUENZA VACCINE 09/27/2018 Procedures Comments Procedure Name Priority Date/Time Associated Diagnosis MRI LUMBAR SPINE WO Routine 06/13/2018 Chronic midline low back CONTRAST 3:12 PM CDT pain with left-sided sciatica HEMOGLOBIN A1C Routine 06/06/2018 Gait difficulty 9:21 AM CDT Multiple falls Peripheral nerve disease PROTEIN ELECTROPHORESIS Routine 06/06/2018 Gait difficulty REFLEX SARAI 9:21 AM CDT Multiple falls Peripheral nerve disease THYROID STIMULATING Routine 06/06/2018 Gait difficulty HORMONE 9:21 AM CDT Multiple falls Peripheral nerve disease VITAMIN B1 LEVEL, WHOLE Routine 06/06/2018 Gait difficulty BLOOD 9:21 AM CDT Multiple falls Peripheral nerve disease VITAMIN B12 LEVEL Routine 06/06/2018 Gait difficulty 9:21 AM CDT Multiple falls Peripheral nerve disease COMPREHENSIVE HEARING Routine 04/17/2018 Postural dizziness TEST 2:29 PM [employer] Encounter for audiology evaluation XR HAND 3+ VW LEFT STAT 01/17/2018 10:27 AM [employer] XR WRIST 3+ VW LEFT STAT 01/17/2018 10:27 AM [employer] VA APPLY LONG ARM SPLINT Routine 01/17/2018 9:26 AM [employer] VA APPLY LONG ARM SPLINT Routine 01/17/2018 9:26 AM [employer] after 08/15/2017 Results * MRI Lumbar Spine Wo Contrast (06/13/2018 3:12 PM CDT) Specimen Narrative Performed At Examination: MRI LUMBAR SPINE WO CONTRAST HM RADIANT MRI LUMBAR SPINE WITHOUT CONTRAST: CLINICAL HISTORY:M54.42 Lumbago with sciaticaleft side, G89.29 Other chronic pain, Low back painradiating to left legfalls COMPARISON:None. TECHNIQUE: Multiplanar multisequence images were obtained through the lumbar including the following sequences:Sagittal T1, T2, STIR, axial T1, T2 MR images of the lumbar spine obtained without IV contrast. DISCUSSION: For counting purposes the lowest fully developed disc as L5-S1. Grade 1 anterolisthesis of L3 over L4 and mild retrolisthesis of L4 over L5. There is no evidence of expansile or destructive osseous lesion. The conus medullaris and nerve roots are normal with conus terminating at L1 level. No epidural mass or collection is seen. Atrophy of posterior paraspinal muscles. A pattern of moderate to severemultilevel degenerative discopathic changes and facet hypertrophy is noted resulting in the following findings when assessing the individual intervertebral disc levels: L5-S1: Disc bulge and both facet and ligamentum flavum hypertrophy. There is remote left L5 laminectomy. There is mild neural foraminal stenosis. The central canal is patent. L4-L5: [Bulge with superimposed shallow central disc protrusion contacting the traversing L5 nerve roots. Remote left L5 laminectomy. There is moderate neural foraminal stenosis. L3-L4: Disc bulge with superimposed posterior disc protrusion. Bilateral L3 laminectomies. There is jznj-pd-tskrycfb left and severe right neural foraminal stenosis. The central canal is patent. L2-L3: Disc bulge with superimposed disc protrusion. Bilateral facet and ligamentum flavum hypertrophy. There is mild central canal and neural foraminal stenosis. L1-L2: Disc bulge and both facet and ligamentum flavum hypertrophy. The central canal and neuroforamina are patent. IMPRESSION: 1. Changes post L3-L5 laminectomies. 2. Grade 1 anterolisthesis of L3 over L4. 3. Multilevel degenerative disc disease and facet hypertrophy resulting in [id number]-zm-takbggia neural foraminal stenosis. 4. There is mild narrowing of the central canal at L2-L3. [id number] Procedure Note Hm Interface, Radiology Results - 06/14/2018 4:35 PM CDT Examination: MRI LUMBAR SPINE WO CONTRAST MRI LUMBAR SPINE WITHOUT CONTRAST: CLINICAL HISTORY: M54.42 Lumbago with sciatica left side, G89.29 Other chronic pain, Low back pain radiating to left leg falls COMPARISON: None. TECHNIQUE: Multiplanar multisequence images were obtained through the lumbar including the following sequences: Sagittal T1, T2, STIR, axial T1, T2 MR images of the lumbar spine obtained without IV contrast. DISCUSSION: For counting purposes the lowest fully developed disc as L5-S1. Grade 1 anterolisthesis of L3 over L4 and mild retrolisthesis of L4 over L5. There is no evidence of expansile or destructive osseous lesion. The conus medullaris and nerve roots are normal with conus terminating at L1 level. No epidural mass or collection is seen. Atrophy of posterior paraspinal muscles. A pattern of moderate to severemultilevel degenerative discopathic changes and facet hypertrophy is noted resulting in the following findings when assessing the individual intervertebral disc levels: L5-S1: Disc bulge and both facet and ligamentum flavum hypertrophy. There is remote left L5 laminectomy. There is mild neural foraminal stenosis. The central canal is patent. L4-L5: [Bulge with superimposed shallow central disc protrusion contacting the traversing L5 nerve roots. Remote left L5 laminectomy. There is moderate neural foraminal stenosis. L3-L4: Disc bulge with superimposed posterior disc protrusion. Bilateral L3 laminectomies. There is tvej-kj-bgdkpyht left and severe right neural foraminal stenosis. The central canal is patent. L2-L3: Disc bulge with superimposed disc protrusion. Bilateral facet and ligamentum flavum hypertrophy. There is mild central canal and neural foraminal stenosis. L1-L2: Disc bulge and both facet and ligamentum flavum hypertrophy. The central canal and neuroforamina are patent. IMPRESSION: 1. Changes post L3-L5 laminectomies. 2. Grade 1 anterolisthesis of L3 over L4. 3. Multilevel degenerative disc disease and facet hypertrophy resulting in gcmy-dl-ryqlpyvq neural foraminal stenosis. 4. There is mild narrowing of the central canal at L2-L3. [id number] Performing Organization Address City/State/Zipcode Phone Number [facility] [address] [place] [address] * Vitamin B1 level, whole blood (06/06/2018 9:21 AM CDT) Vitamin B1, 121 78 - 185 nmol/L [facility] whole blood Comment: [facility]NOST[facility] Vitamin supplementation [place] within 24 hours prior to blood [place] draw may affect the accuracy of results. This test was developed and its analytical performance characteristics have been determined by [facility]. It has not been cleared or approved by FDA. This assay has been validated pursuant to the CLIA regulations and is used for clinical purposes. Specimen Blood Resulting Agency Comment Performing Organization Information: Site ID: [id number] Name: [facility] Address: [address] [place] [address] Director: Stew Owusu M.D., Ph.D Performing Organization Address City/[facility]/Zipcode Phone Number [facility] [place] [address] [place] [address] [place] * Protein electrophoresis, total (06/06/2018 9:21 AM CDT) Protein 7.0 6.1 - 8.1 g/dL [facility] Interpretation Comment: [facility] Normal pattern. No monoclonal [facility] proteins detected. ING II Albumin, S 3.9 3.8 - 4.8 g/dL [facility] Ezhed-3-cpzkziz 0.3 0.2 - 0.3 g/dL [facility] II Nnyvu-2-hxcmxfh 0.9 0.5 - 0.9 g/dL [facility] Beta-1 globulin 0.5 0.4 - 0.6 g/dL [facility] Beta-2 globulin 0.3 0.2 - 0.5 g/dL [facility] Gamma, CSF 1.1 0.8 - 1.7 g/dL [facility] Interpretation Comment: [facility] Normal Electrophoretic Pattern [facility] ING II Specimen Blood Resulting Agency Comment Performing Organization Information: Site ID: [id number] [facility]: [facility] Address: [address] [place] [address] Director: Dr. Дмитрий Chavarria Performing Organization Address City/State/Zipcode Phone Number [facility] [address] [place] [address] II * Thyroid stimulating hormone (06/06/2018 9:21 AM CDT) TSH 11.03 (H) 0.40 - 4.50 mIU/L [facility] [place] Specimen Blood Resulting Agency Comment Performing Organization Information: Site ID: [id number] [facility]: [facility] Address: [address] [place] [id number] Director: Maya Nixon Performing Organization Address [facility] [place] [address] * Hemoglobin A1c (06/06/2018 9:21 AM CDT) Hemoglobin A1C 5.7 (H) <5.7 % of total Hgb [facility] Comment: DIAGNOSTICS For someone without known [place] diabetes, a hemoglobin A1c value between 5.7% and 6.4% is consistent with prediabetes and should be confirmed with a follow-up test. For someone with known diabetes, a value <7% indicates that their diabetes is well controlled. A1c targets should be individualized based on duration of diabetes, age, comorbid conditions, and other considerations. This assay result is consistent with an increased risk of diabetes. Currently, no consensus exists regarding use of hemoglobin A1c for diagnosis of diabetes for children. Specimen Blood Resulting Agency Comment Performing Organization Information: Site ID: [facility] Name: [facility] Address: [address] [place], [place] [id number] Director: Maya Nixon Performing Organization Address [facility] Phone Number [facility] [address] [address] * Vitamin B12 level (06/06/2018 9:21 AM CDT) Vitamin B12 412 200 - 1,100 pg/mL [facility] [place] Specimen Blood Resulting Agency Comment Performing Organization Information: Site ID: [facility] Name: [facility] Address: [address] [place] [id number] Director: Maya Nixon Performing Organization Address [facility] [place] [address] * Comprehensive hearing test (04/17/2018 2:29 PM [employer]) * XR Hand 3+ Vw Left (01/17/2018 10:27 AM [employer]) Specimen Narrative Performed At EXAMINATION:XR HAND 3VW LEFT [...] and metacarpal carpal articulations greatest at the PRISON joint of the thumb. IMPRESSION: Dislocation dorsally at the proximal interphalangeal joint of the middle phalanx on the proximal phalanx. [id number] Procedure Note Interface, Radiology Results Incoming - 01/17/2018 10:45 AM [employer] EXAMINATION: XR HAND 3 VW LEFT CLINICAL [...] and metacarpal carpal articulations greatest at the PRISON joint of the thumb. IMPRESSION: Dislocation dorsally at the proximal interphalangeal joint of the middle phalanx on the proximal phalanx. [id number] Performing Organization Address City/State/Zipcode Phone Number [facility] [address] [place] [address] * XR Wrist 3+ Vw Left (01/17/2018 10:27 AM [employer]) Specimen Narrative Performed At EXAMINATION:[facility]wrist COMPARISON:None. Findings: Left wrist: AP, [...] present IMPRESSION: Distal radial fracture as described [id number] Procedure Note Interface, Radiology Results Incoming - 01/17/2018 10:41 AM [employer] EXAMINATION: XR WRIST 3 VW LEFT CLINICAL [...] present IMPRESSION: Distal radial fracture as described [id number] Performing Organization Address City/State/Zipcode Phone Number [facility] [address] [place] [address] * Splint Application (01/17/2018 9:26 AM [employer]) Narrative Performed At Cindi Solomon MD 01/20/2018 12:16 AM Splint Application Performed by: Chandrakant Moreno PA-C Authorized by: Cindi Solomon MD Consent: Consent obtained:Verbal Consent given by:Patient Risks discussed:Discoloration, numbness, pain and swelling Alternatives discussed:No treatment Pre-procedure details: Sensation:Normal Skin color:Thank Procedure details: Laterality:Left Location: Left wrist left hand. Splint type:Sugar tong Supplies:Cotton padding, elastic bandage and Ortho-Glass Post-procedure details: Pain:Improved Sensation:Normal Skin color:Holly Patient tolerance of procedure:Tolerated well, no immediate complications Comments: Splint was extended to the digit secondary to the patient's fourth finger dislocation which was reduced and anatomically appropriate abrasion at left elbow was cleaned with normal saline Xeroform and Ian. * Orthopedic Injury Treatment (01/17/2018 9:26 AM [employer]) Narrative Performed At Cindi Solomon MD 01/20/2018 [...] of procedure:Tolerated well, no immediate complications after 08/15/2017 Insurance Type Payer Benefit Subscriber ID Effective Phone Address Plan / Dates Group Medicare MEDICARE MEDICARE xxxxxxxxxxx [id number] GEOR[place], PART A AND resent [place] B Commercial AARP AARP xxxxxxxxx [id number] SUPPLEMENT resent Advance Directives Patient has advance care planning documents on file. For more information, fela alegre contact: George Gill [address] [place] [address]
--- OUTSIDE RECORDS SUMMARY | 2018-08-16 14:12 | XMS REPORT | Continuity of Care Document ---
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 [facility] DX: S06.5X9A Active 04/02/2018 [facility] SDH, S/P FALL Active 03/12/2018 [facility] Hyperlipidemia Resolved Problem 06/04/2018 [facility] Hypertension Resolved Problem 06/04/2018 [facility] Hypothyroidism Resolved Problem 06/04/2018 [facility] 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, Active [facility] 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 [facility] Medications Medication Details Route Status Patient Instructions Ordering Provider Order Date Source tramadol hydrochloride 50 MG Oral Tablet 50 mg=1 tab, PO, Q6H, PRN Pain Score 4-6, X 5 day, # 30 tab, 0 Refill(s) Active 03/17/2018 [facility] pregabalin 25 mg oral capsule 25 mg=1 cap, PO, Q8H, # 30 cap, 0 Refill(s) Active 03/17/2018 [facility] Levetiracetam 500 MG Oral Tablet [Keppra] 500 mg=1 tab, PO, Q12H, # 14 tab, 0 Refill(s) Active 03/17/2018 [facility] remove patch 1 patch, Route: TOP, Daily, Drug form: ERFILM, Start date: 03/17/18 6:00:00 [employer], Duration: 30 day, Stop date: 04/15/18 6:00:00 [employer] Inactive 03/17/2018 [facility] Levetiracetam 500 MG Oral Tablet [Keppra] 500 mg, 1 tab, Route: PO, Drug form: TAB, Q12H, Dosing Weight 65.006, kg, Start date: 03/16/18 21:00:00 [employer], Duration: 7 day, Stop date: 03/23/18 9:00:00 [employer] No Longer Active 03/17/2018 [facility] Lidocaine 0.05 MG/MG Transdermal Patch 1 patch, Route: TOP, Daily, Drug form: FILM, Start date: 03/16/18 18:00:00 [employer], Duration: 30 day, Stop date: 04/14/18 18:00:00 [employer] No Longer Active 03/17/2018 [facility] Lyrica 25 mg, 1 cap, Route: PO, Drug form: CAP, Q8H, Dosing Weight 65.006, kg, Start date: 03/16/18 16:00:00 [employer], Duration: 30 day, Stop date: 04/15/18 8:00:00 [employer] No Longer Active 03/16/2018 [facility] Bisacodyl 10 mg, 1 supp, Route: OR, Drug form: SUPP, Daily, Dosing Weight 65.006, kg, Start date: 03/15/18 21:00:00 [employer], Duration: 30 day, Stop date: 04/14/18 9:00:00 CSTNotes: (Same As: Dulcolax, Bisco-Lax) No Longer Active 03/16/2018 [facility] magnesium citrate 58.2 MG/ML Oral Solution 300 ml, Route: PO, Drug Form: LIQ, Dosing Weight 65.006, kg, ONCE, Start date: 03/15/18 14:04:00 [employer], Stop date: 03/15/18 14:04:00 CSTNotes: (Same as: Citrate of Magnesia) Concentration: 1.745 gm / 30 mL Inactive 03/15/2018 [facility] heparin sodium, porcine 2500 UNT/ML Injectable Solution 5,000 unit, 1 mL, Route: SUB-Q, Drug form: INJ, Q8H, Dosing Weight 65.006, kg, Start date: 03/15/18 8:00:00 [employer], Duration: 30 day, Stop date: 04/14/18 0:00:00 CSTNotes: porcine heparin No Longer Active 03/15/2018 [facility] Milk of Magnesia 30 ml, Route: PO, Drug Form: SUSP, Dosing Weight 65.006, kg, ONCE, Start date: 03/15/18 5:24:00 [employer], Stop date: 03/15/18 5:24:00 CSTNotes: (Same as: Milk of Magnesia, MOM) Inactive 03/15/2018 [facility] Fleet Mineral Oil Enema 133 mL, Route: OR, Drug Form: CALIXTO, Dosing Weight 65.006, kg, ONCE, Start date: 03/14/18 17:24:00 [employer], Stop date: 03/14/18 17:24:00 CSTNotes: (Same as:Fleet Mineral Oil Enema) No Longer Active 03/14/2018 [facility] normal saline 0.9% IV 1,000 mL 1,000 mL, Rate: 75 ml/hr, Infuse over: 13.3 hr, Route: IV, Dosing Weight 65.006 kg, Total Volume: 1,000, Start date: 03/14/18 14:35:00 [employer], Duration: 30 day, Stop date: 04/13/18 14:34:00 [employer], 1.71, m2 No Longer Active 03/14/2018 [facility] Keppra 500 mg, Route: IVPB, Q12H, Dosing Weight 65.006, kg, Start date: 03/14/18 9:00:00 [employer], Duration: 30 day, Stop date: 04/12/18 21:00:00 CSTNotes: Same as Keppra Mix with 100 mL NS, LR or D5W MEDICA TION WASTE Product Size: 500 mg Product Wasted: ___ mg No Longer Active 03/14/2018 [facility] Phenergan 12.5 mg, 0.5 mL, Route: IVPB, Drug form: INJ, ONCE, Dosing Weight 65.006, kg, Start date: 03/14/18 8:19:00 [employer], Stop date: 03/14/18 8:19:00 CSTNotes: Do not give IV push. (Same as: Phenergan) Inactive 03/14/2018 [facility] heparin sodium, porcine 2500 UNT/ML Injectable Solution 5,000 unit, 1 mL, Route: SUB-Q, Drug form: INJ, Q8H, Dosing Weight 65.006, kg, Start date: 03/14/18 8:00:00 [employer], Duration: 30 day, Stop date: 04/13/18 0:00:00 CSTNotes: porcine heparin Inactive 03/14/2018 [facility] Zofran 4 mg, 2 mL, Route: IVP, Drug form: INJ, Q6H, Dosing Weight 65.006, kg, PRN Nausea, Start date: 03/14/18 6:20:00 [employer], Duration: 30 day, Stop date: 04/13/18 6:19:00 CSTNotes: (Same as: Zofran) MEDICATION WASTE Product Size: 4 mg Product Wasted: ___ mg No Longer Active 03/14/2018 [facility] Magnesium Sulfate 2 gm, 50 mL, Route: IVPB, Drug form: INJ, ONCE, Dosing Weight 65.006, kg, Start date: 03/13/18 16:26:00 [employer], Stop date: 03/13/18 16:26:00 CSTNotes: WASTE: F/P - Sink; E - Municipal Trash Bin Inactive 03/13/2018 [facility] Tramadol 50 mg, 1 tab, Route: PO, Drug form: TAB, Q6H, Dosing Weight 65.006, kg, PRN Pain Score 4-6, Start date: 03/13/18 16:24:00 [employer], Duration: 30 day, Stop date: 04/12/18 16:23:00 CSTNotes: Not to exceed 4 00mg/day. (Same As: Ultram) No Longer Active 03/13/2018 [facility] Levetiracetam 500 MG Oral Tablet [Keppra] 500 mg, 1 tab, Route: PO, Drug form: TAB, Q12H, Dosing Weight 65.006, kg, Start date: 03/13/18 10:28:00 [employer], Duration: 30 day, Stop date: 04/12/18 9:00:00 CSTNotes: (Same as:Keppra) No Longer Active 03/13/2018 [facility] Saline Flush 0.9% 10 ml, Route: IVP, Drug Form: INJ, kg, Q12H, Start date: 03/13/18 9:00:00 [employer], Duration: 30 day, Stop date: 04/11/18 21:00:00 CSTNotes: Same as: BD Posiflush Sterile No Longer Active 03/13/2018 [facility] Levetiracetam 500 mg, Route: IVPB, Q12H, kg, Priority: Routine, Start date: 03/13/18 9:00:00 [employer], Duration: 30 day, Stop date: 04/11/18 21:00:00 CSTNotes: Same as Keppra Mix with 100 mL NS, LR or D5W MEDICA TION WASTE Product Size: 500 mg Product Wasted: ___ mg Inactive 03/13/2018 [facility] Docusate Sodium 100 MG Oral Capsule 100 mg, 1 cap, Route: PO, Drug form: CAP, Q12H, kg, Start date: 03/13/18 9:00:00 [employer], Duration: 30 day, Stop date: 04/11/18 21:00:00 CSTNotes: (Same as: Colace) (Do Not Crush) No Longer Active 03/13/2018 [facility] sennosides, [facility]URSING HOME 8.6 mg, 1 tab, Route: PO, Drug Form: TAB, kg, Q12H, Start date: 03/13/18 9:00:00 [employer], Duration: 30 day, Stop date: 04/11/18 21:00:00 CSTNotes: (Same as: Senokot) No Longer Active 03/13/2018 [facility] Famotidine 20 mg, 2 mL, Route: IVP, Drug form: INJ, Q12H, kg, Start date: 03/13/18 9:00:00 [employer], Duration: 30 day, Stop date: 04/11/18 21:00:00 CSTNotes: (Same as: Pepcid) Can be dilute in 5-10cc NS IVP: Slow IV push over at least 2 minutes. Inactive 03/13/2018 [facility] Synthroid 125 microgram, 1 tab, Route: PO, Drug form: TAB, Daily, Dosing Weight 65.006, kg, Start date: 03/13/18 9:00:00 [employer], Duration: 30 day, Stop date: 04/11/18 9:00:00 CSTNotes: Take 1 hour before or 2 hours after meal; Enteral feeds may interefere with the absorption of this medication. (Same as:Levothroid) No Longer Active 03/13/2018 [facility] Fluoxetine 20 mg, 1 cap, Route: PO, Drug form: CAP, Daily, Dosing Weight 65.006, kg, Start date: 03/13/18 9:00:00 [employer], Duration: 30 day, Stop date: 04/11/18 9:00:00 CSTNotes: (Same as: ProzacRangelafem) No Longer Active 03/13/2018 [facility] Magnesium Sulfate 2 gm, Route: IVPB, Drug form: INJ, ONCE, Dosing Weight 65.006, kg, Start date: 03/13/18 8:40:00 [employer], Stop date: 03/13/18 8:40:00 [employer]IST Inactive 03/13/2018 [facility] Bupropion 150 mg, 1 tab, Route: PO, Drug form: ERTAB, Q24H, Dosing Weight 65.006, kg, Start date: 03/13/18 8:00:00 [employer], Duration: 30 day, Stop date: 04/11/18 8:00:00 CSTNotes: (Same as: Wellbutrin XL) "Do Not Crush" No Longer Active 03/13/2018 [facility] 24 HR Bupropion Hydrochloride 150 MG Extended Release Tablet 150 mg=1 tab, PO, Q24H, # 30 tab, 0 Refill(s) Active 03/13/2018 [facility] Calcium Citrate =1 tab, PO, Daily, 0 Refill(s) Active 03/13/2018 [facility] Triamterene 37.5 mg, PO, Daily, 0 Refill(s) No Longer Active 03/13/2018 [facility] Levothyroxine Sodium 0.125 MG Oral Tablet [Synthroid] 125 microgram=1 tab, PO, Daily, # 30 tab, 0 Refill(s) Active 03/13/2018 [facility] Vitamin D3 oral tablet 400 IntlUnit=1 tab, PO, Daily, # 30 tab, 0 Refill(s) Active 03/13/2018 [facility] Bupropion 150 mg, PO, Daily, 0 Refill(s) Inactive 03/13/2018 [facility] Aspirin 81 mg, PO, Daily, 0 Refill(s) No Longer Active 03/13/2018 [facility] FLUoxetine 20 mg oral capsule 20 mg=1 cap, PO, Daily, # 30 cap, 0 Refill(s) Active 03/13/2018 [facility] Simvastatin 40 mg=1 tab, PO, Bedtime, # 30 tab, 0 Refill(s) Active 03/13/2018 [facility] Magnesium Sulfate 2 gm, 50 mL, Route: IVPB, Drug form: INJ, PRN, Dosing Weight 65.006, kg, PRN Abnormal Lab Result, Start date: 03/13/18 2:16:00 [employer], Duration: 30 day, Stop date: 04/12/18 2:15:00 [employer] MACHINIST, FOR ICU USE ONLYNotes: WASTE: F/P - Sink; E - Municipal Trash Bin Inactive 03/13/2018 [facility] Magnesium Oxide 800 mg, 2 tab, Route: PO, Drug form: TAB, PRN, Dosing Weight 65.006, kg, PRN Abnormal Lab Result, FOR ICU USE ONLY, Start date: 03/13/18 2:16:00 [employer], Duration: 30 day, Stop date: 04/12/18 2:15:00 [employer]IN[employer] Notes: (Same as: Mag-Ox 400) Magnesium oxide [id number] elemental magnesium Dose=____mg magnesium oxide (___mg elemental magnesium) Inactive 03/13/2018 [facility] Calcium Carbonate 500 MG Chewable Tablet 1,000 mg, 2 tab, Route: PO, Drug form: CHEWTAB, PRN, Dosing Weight 65.006, kg, PRN Abnormal Lab Result, FOR ICU USE ONLY, Start date: 03/13/18 2:16:00 [employer] M[employer]INIST, Duration: 30 day, Stop date: 04/12/18 2:15:00 CSTNotes: (Same As: Milo) Calcium Carbonate 500 mr=356 mg elemental calcium Dose= mg calcium carbonate ( mg elemental calcium) Inactive 03/13/2018 [facility] Calcium Gluconate 1 gm, 10 mL, Route: IVPB, PRN, Dosing Weight 65.006, kg, PRN Abnormal Lab Result, Start date: 03/13/18 2:16:00 [employer]IST, Duration: 30 day, Stop date: 04/12/18 2:15:00 [employer] MACHINIST, FOR ICU USE ONLYNotes: WASTE: F/P - Sink; E - Municipal Trash Bin Inactive 03/13/2018 [facility] Potassium Chloride 20 mEq, 15 mL, Route: NJ, Drug form: LIQ, PRN, Dosing Weight 65.006, kg, PRN Abnormal Lab Result, Start date: 03/13/18 2:16:00 [employer], Duration: 30 day, Stop date: 04/12/18 2:15:00 [employer] M[employer]ING MACHINIST, FOR ICU USE ONLYNotes: (Same as: Potassium Chloride) Inactive 03/13/2018 [facility] sodium phosphate 15 mmol, 5 mL, Route: IVPB, PRN, Dosing Weight 65.006, kg, PRN Abnormal Lab Result, Start date: 03/13/18 2:16:00 [employer], Duration: 30 day, Stop date: 04/12/18 2:15:00 [employer] MACHINIST, FOR ICU USE ONLYNotes: Infuse over 4 hour. Do not infuse phosphorous concurrently in the same line as TPN or IVF that contains calcium. For double lumen central lines, phosphorous may be infused in a separate lumen from TPN. Inactive 03/13/2018 [facility] potassium phosphate 30 mmol, 10 mL, Route: IVPB, PRN, Dosing Weight 65.006, kg, PRN Abnormal Lab Result, Start date: 03/13/18 2:16:00 [employer]IST, Duration: 30 day, Stop date: 04/12/18 2:15:00 [employer] MACHINIST, FOR ICU USE ONLYNotes: (Same as: K Phosphate.) Do not infuse phosphorous concurrently in the same line as TPN or IVF that contains calcium. For double lumen central lines, phosphorous may be infused in a separate lumen from TPN. 1 mMol phoshate has 1.47 mEq potassium Infuse over 4 hours Inactive 03/13/2018 [facility] potassium phosphate-sodium phosphate 250 mg-280 mg-160 mg oral powder for reconstitution 2 pkt, Route: PO, Drug Form: PDR/REC, Dosing Weight 65.006, kg, PRN, PRN Abnormal Lab Result, FOR ICU USE ONLY, Start date: 03/13/18 2:16:00 [employer] M[employer]IST, Duration: 30 day, Stop date: 04/12/18 2:15:00 CSTNotes: (Same as: Phos-NaK) Each 1.5 gm pkt has 250mg phosphorous. Mix w/2.5oz water and stir. Inactive 03/13/2018 [facility] Insulin regular 4 unit, 0.04 mL, Route: SUB-Q, Drug form: SOLN, Sliding Scale, kg, PRN Blood Glucose Results, Start date: 03/12/18 22:08:00 [employer]ACH[employer]IST, Duration: 30 day, Stop date: 04/11/18 22:07:00 CSTNotes: (Same as: Humulin R) Roll in palms of hands gently; Do not shake vigorously. "single patient use only" (Restricted to patients requiring a dose > 60 units) WASTE: F/P - Black; E - Municipal Trash Bin Stable for 28 days at room temperature Expires in days from Date No Longer Active 03/13/2018 [facility] Saline Flush 0.9% 10 ml, Route: IVP, Drug Form: INJ, kg, PRN, PRN Line Flush, Start date: 03/12/18 22:08:00 [employer] M[employer]IST, Duration: 30 day, Stop date: 04/11/18 22:07:00 CSTNotes: Same as: BD Posiflush Sterile No Longer Active 03/13/2018 [facility] Labetalol 10 mg, 2 mL, Route: IVP, Drug form: INJ, Q15Min, kg, PRN Hypertension, Start date: 03/12/18 22:08:00 [employer] MACHINIST, Duration: 3 doses or times, Stop date: Limited # of timesNotes: (Same as: Normodyne, Trandate) Push over 2 minutes Give bolus over 2-3 minutes. No Longer Active 03/13/2018 [facility] Ondansetron 4 mg, 2 mL, Route: IVP, Drug form: INJ, Q8H, kg, PRN Nausea & Vomiting, Start date: 03/12/18 22:08:00 [employer] MACHINIST, Duration: 30 day, Stop date: 04/11/18 22:07:00 CSTNotes: (Same as: Zofran) MEDICATION WASTE Product Size: 4 mg Product Wasted: ___ mg No Longer Active 03/13/2018 [facility] Sodium Chloride 0.9% IV 1,000 mL 1,000 mL, Rate: 75 ml/hr, Infuse over: 13.3 hr, Route: IV, Dosing Weight 65 kg, Total Volume: 1,000, Start date: 03/12/18 22:08:00 [employer] M[employer]ING MACHINIST, Duration: 30 day, Stop date: 04/11/18 22:07:00 C[employer] M[employer]ING MACHINIST No Longer Active 03/13/2018 [facility] Morphine 1 mg, 0.25 mL, Route: IVP, Drug form: SOLN, Q1H, kg, PRN Pain Score 7-10, Start date: 03/12/18 22:08:00 [employer] M[employer]ING MACHINIST, Duration: 30 day, Stop date: 04/11/18 22:07:00 CSTNotes: (Same as:MORPhine Sulfate) No Longer Active 03/13/2018 [facility] Bisacodyl 10 mg, 1 supp, Route: OR, Drug form: SUPP, Daily, kg, PRN Constipation, Start date: 03/12/18 22:08:00 [employer]ING MACHINIST, Duration: 30 day, Stop date: 04/11/18 22:07:00 CSTNotes: (Same As: Dulcolax, Bisco-Lax) No Longer Active 03/13/2018 [facility] Acetaminophen 325 MG / Hydrocodone Bitartrate 5 MG Oral Tablet [[place] 5/325] 1 tab, Route: PO, Drug Form: TAB, kg, Q6H, PRN Pain Score 4- 6, STAT, Start date: 03/12/18 22:06:00 [employer] M[employer]ING MACHINIST, Duration: 30 day, Stop date: 04/11/18 22:05:00 CSTNotes: (Same as: [place] 325/5) Do not exceed 4gm/day of acetaminophen. No Longer Active 03/13/2018 [facility] Tylenol 650 mg, 2 tab, Route: PO, Drug form: TAB, Q6H, kg, PRN Pain 1-3/Temp > 100.4 F, Priority: STAT, Start date: 03/12/18 22:04:00 [employer] MACHINIST, Duration: 30 day, Stop date: 04/11/18 22:03:00 CSTNotes: Do not exceed 4 gm/day. (Same as: Tylenol) No Longer Active 03/13/2018 [facility] normal saline 0.9% IV 1,000 mL 1,000 mL, Rate: 75 ml/hr, Infuse over: 13.3 hr, Route: IV, Total Volume: 1,000, Start date: 03/12/18 21:38:00 [employer] MACHINIST, Duration: 30 day, Stop date: 04/11/18 21:37:00 [employer] M[employer]ING MACHINIST No Longer Active 03/13/2018 [facility] Keppra 1,000 mg, Route: IV, ONCE, kg, Start date: 03/12/18 21:30:00 [employer] M[employer] MACHINIST, Stop date: 03/12/18 21:30:00 [employer] M[employer] MACHINIST Inactive 03/13/2018 [facility] Keppra 1,000 mg, Route: IV, ONCE, kg, Priority: STAT, Start date: 03/12/18 21:29:00 [employer] M[employer] MACHINIST, Stop date: 03/12/18 21:29:00 [employer] M[employer]ING MACHINIST Inactive 03/13/2018 [facility] Calcium Chloride 0.0014 MEQ/ML / Potassium Chloride 0.004 MEQ/ML / Sodium Chloride 0.103 MEQ/ML / Sodium Lactate 0.028 MEQ/ML Injectable Solution 1,000 mL, 2,000 ml/hr, Route: IV, ONCE, Priority: STAT, kg, Start date: 03/12/18 21:13:00 [employer] M[employer] MACHINIST, Stop date: 03/12/18 21:13:00 C[employer] M[employer]ING MACHINIST Inactive 03/13/2018 [facility] Saline Flush 0.9% 10 mL, Route: IVP, Drug Form: INJ, kg, PRN, PRN Line Flush, Start date: 03/12/18 21:13:00 [employer] M[employer] MACHINIST, Duration: 30 day, Stop date: 04/11/18 21:12:00 [employer] M[employer] MACHINIST No Longer Active 03/13/2018 [facility] Ibuprofen 200 Mg Capsule, 200 Mg Oral As Needed Active 12/03/2014 [facility] Amistinza , Active 11/26/2014 [facility] Aspirin (Aspir 81) 81 Mg Tablet.dr, Mg Oral Daily Active 11/26/2014 [facility] Levothyroxine Sodium (Synthroid) 125 Mcg Tab, 125 Mcg Today At 6:30AM Active 11/26/2014 [facility] Sertraline Hcl (Zoloft) 50 Mg Tablet, 25 Mg Oral Daily Active 11/26/2014 [facility] Acetaminophen With Codeine (Tylenol With Codeine #3 Tablet) 1 Each Tablet Every 4 Hours as needed for Pain Active [facility] Levothyroxine Sodium (Synthroid) 175 Mcg Tablet Today At 6:30AM Active [facility] Lubiprostone (Amitiza) 24 Mcg Capsule Daily Active [facility] Promethazine Hcl 25 Mg Tablet Every 4 Hours as needed for Nausea Active [facility] Sertraline Daily Active [facility] Simvastatin 40 Mg Tablet Daily Active [facility] Triamterene/Hctz (Triamterene-Hctz 37.5-25 Mg Tb) 1 Ea Tab Daily Active [facility] Allergies, Adverse Reactions, Alerts Substance Category Reaction Severity Reaction type Status Date Reported Comments Source Meperidine Mild Allergy to Substance Active 03/27/2014 [facility] Demerol Assertion Drug allergy Active [facility] Immunizations Immunization Date Given Site Status Last Updated Comments Source Results Order Name Results Value Reference Range Date Interpretation Comments Source Urine color determination COLORLESS YELLOW 08/06/2018 [facility] Urine clarity CLEAR CLEAR 08/06/2018 [facility] Specific gravity of Urine by Test strip <=1.005 1.010 - 1.025 08/06/2018 [facility] Urine pH measurement by automated test strip 7 5 - 7 08/06/2018 [facility] Urine leukocyte esterase detection by automated test strip NEGATIVE NEGATIVE 08/06/2018 [facility] Urine nitrite detection by automated test strip NEGATIVE NEGATIVE 08/06/2018 [facility] Urine protein detection by automated test strip NEGATIVE NEGATIVE 08/06/2018 [facility] Urine glucose detection by automated test strip NEGATIVE NEGATIVE 08/06/2018 [facility] Urine ketones detection by automated test strip NEGATIVE NEGATIVE 08/06/2018 [facility] Urine urobilinogen measurement by test strip (mass/volume) 0.2 0.2 - 1 08/06/2018 [facility] Urine total bilirubin detection NEGATIVE NEGATIVE 08/06/2018 [facility] Urine erythrocytes detection TRACE NEGATIVE 08/06/2018 [facility] Automated urine sediment leukocyte count by microscopy (number/high power field) NONE 0 - 5 08/06/2018 [facility] Erythrocytes detection in urine sediment by light microscopy 0-5 0 - 5 08/06/2018 [facility] Bacteria detection in urine sediment by light microscopy NONE NONE 08/06/2018 [facility] Epithelial cells detection in urine sediment by light microscopy NONE NONE 08/06/2018 [facility] Blood leukocytes automated count (number/volume) 14.15 4.8 - 10.8 08/06/2018 [facility] Blood erythrocytes automated count (number/volume) 4.68 3.6 - 5.1 08/06/2018 [facility] Blood hemoglobin measurement (moles/volume) 13.2 12.0 - 16.0 08/06/2018 [facility] Automated blood hematocrit (volume fraction) 38.9 34.2 - 44.1 08/06/2018 [facility] Automated erythrocyte mean corpuscular volume 83.1 81 - 99 08/06/2018 [facility] Automated erythrocyte mean corpuscular hemoglobin (mass per erythrocyte) 28.2 28 - 32 08/06/2018 [facility] Automated erythrocyte mean corpuscular hemoglobin concentration measurement (mass/volume) 33.9 31 - 35 08/06/2018 [facility] RDW BldCo-Rto 15.1 11.7 - 14.4 08/06/2018 [facility] Automated blood platelet count (count/volume) 290 140 - 360 08/06/2018 [facility] Automated blood segmented neutrophil count as percentage of total leukocytes 82.3 38.7 - 80.0 08/06/2018 [facility] Automated blood lymphocyte count as percentage ot total leukocytes 10.5 18.0 - 39.1 08/06/2018 [facility] Automated blood monocyte count as percentage of total leukocytes 6.0 4.4 - 11.3 08/06/2018 [facility] Automated blood eosinophil count as percentage of total leukocytes 0.4 0.0 - 6.0 08/06/2018 [facility] Automated blood basophil count as percentage of total leukocytes 0.2 0.0 - 1.0 08/06/2018 [facility] IM GRANULOCYTES % 0.6 0.0 - 1.0 08/06/2018 [facility] Automated blood neutrophil count 11.7 2.1 - 6.9 08/06/2018 [facility] Blood lymphocytes count (number/volume) 1.5 1.0 - 3.2 08/06/2018 [facility] Blood monocytes automated count (number/volume) 0.9 0.2 - 0.8 08/06/2018 [facility] Automated blood eosinophil count 0.1 0.0 - 0.4 08/06/2018 [facility] Automated blood basophil count (count/volume) 0.0 0.0 - 0.1 08/06/2018 [facility] Absolute Immature Granulocyte (auto 0.09 0 - 0.1 08/06/2018 [facility] Prothrombin time (PT) in platelet poor plasma by coagulation assay 13.6 11.9 - 14.5 08/06/2018 [facility] INR in Platelet poor plasma by Coagulation assay 0.99 08/06/2018 [facility] Activated partial thromboplastin time (aPTT) in platelet poor plasma bycoagulation assay 31.9 23.8 - 35.5 08/06/2018 [facility] Serum or plasma sodium measurement (moles/volume) 134 136 - 145 08/06/2018 [facility] Serum or plasma potassium measurement (moles/volume) 3.5 3.5 - 5.1 08/06/2018 [facility] Serum or plasma chloride measurement (moles/volume) 104 98 - 107 08/06/2018 [facility] Serum or plasma carbon dioxide, total measurement (moles/volume) 22 22 - 29 08/06/2018 [facility] Serum or plasma anion gap 11.5 8 - 16 08/06/2018 [facility] Serum or plasma urea nitrogen measurement (mass/volume) 15 7 - 26 08/06/2018 [facility] Serum or plasma creatinine measurement (mass/volume) 0.85 0.57 - 1.11 08/06/2018 [facility] Serum or plasma urea nitrogen/creatinine mass ratio 18 6 - 25 08/06/2018 [facility] Estimated glomerular filtration rate (GFR) determination > 60 60 08/06/2018 [facility] Glucose measurement 94 74 - 118 08/06/2018 [facility] Serum or plasma calcium measurement (mass/volume) 10.3 8.4 - 10.2 08/06/2018 [facility] Brain wo contrast CT Brain wo contrast CT Clinical Indication: 82-year-old female with follow-up to intracranial hemorrhage in February 2018. Comparison: CT of the head 04/17/2018 TECHNIQUE: CT images were obtained from the foramen magnum to the vertex without the use of intravenous contrast on a multidetector CT. Coronal and sagittal reconstructions were obtained. 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 There is generalized brain parenchymal atrophy related to the patient's age. Moderate to moderately advanced nonspecific subcortical, periventricular white matter and bilateral basal ganglion and bilateral thalamic hypodensities are noted consistent with a microangiopathy. 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 Atherosclerotic calcifications are present within the carotid siphons and distal vertebral arteries. There are no focal mass lesions on this noncontrast head CT. There is no significant mass effect, midline shift or edema. There are no intra-axial fluid collections, intraventricular or intraparenchymal hemorrhage. There is no noncontrast CT evidence of a subacute stroke. The pineal, brainstem, cerebellum and skull base regions appear unremarkable. The sella is unremarkable VENTRICLES: The lateral ventricles, third and fourth ventricles appear unremarkable. The basilar cisterns are normal. ORBITS, MASTOIDS AND PARANASAL SINUSES: The visualized orbits are unremarkable. Mild mucosal thicking is seen in the left maxillary, several ethmoidal and left posterior sphenoid sinuses. The mastoid air cells are clear. SKULL: There are no calvarial abnormalities seen. If there is further concern for intracranial pathology or acute stroke, MRI of the brain may be performed for complete assessment. IMPRESSION: 1. Considerable improvement is seen in the subdural hematoma superficially to the left cerebral hemisphere compared to the CT every 2018. Only a small relatively isodense collection is seen superficially to the left temporal lobe. 2. Chronic age-related and small vessel ischemic changes without mass or subacute stroke. SL: [id number] 05/29/2018 - - Read by: Chandrakant Uriostegui MD Dictated Date/time: 05/29/18 13:39 Electronically Signed by: Chandrakant Uriostegui MD 05/29/18 13:56 FINAL REPORT [facility] Brain wo contrast CT Brain wo contrast CT Clinical Indication: - pt is scheduled w/ Trauma clinic on 04/19 @ 1:00pm Comparison: Comparison is made to CT study of 04/03/2018 TECHNIQUE: CT images were obtained from the foramen magnum to the vertex without the use of intravenous contrast on a multidetector CT. Coronal and sagittal reconstructions were obtained. CT radiation dose DLP: 705 mGy-cm FINDINGS: BRAIN PARENCHYMA: There is a persistent left temporal/posterior frontal parietal subacute to chronic hematoma with diminished density and no interval rebleed. The maximum depth is 0.9 cm. This is diminishing comparison to the previous study at approximately 1.4 cm. The degree of attenuation the cortical sulci and gyri has diminished. There is encephalomalacia remaining in the anterior lateral temporal lobe with ex vacuo change to the left temporal horn. Subcortical and periventricular areas of gliosis and central cortical atrophy the supratentorial brain is present and stable. There is no acute cortical infarct or acute parenchymal hemorrhage. Sella and parasellar structures in normal for age with calcification the cavernous carotid arteries. There is no cerebellar tonsillar ectopia. VENTRICLES: There is no obstructive hydrocephalus. Ventriculomegaly is a reflection of central atrophy. There is no obstructive hydrocephalus. ORBITS, MASTOIDS AND PARANASAL SINUSES: There is mucosal inflammatory changes in the posterior dependent left central/lateral sphenoid sinus. The orbital fossa contents are normal. The orbital lenses have been resected. The mastoid air cells are clear. SKULL: There is hyperostosis frontalis interna. If there is further concern for intracranial pathology or acute stroke, MRI of the brain may be performed for complete assessment. IMPRESSION: There is a persistent left temporal/posterior frontal parietal subacute to chronic hematoma with diminished density and no interval rebleed. The maximum depth is 0.9 cm. This is diminishing comparison to the previous study at approximately 1.4 cm. The degree of attenuation the cortical sulci and gyri has diminished. There is encephalomalacia remaining in the anterior lateral temporal lobe with ex vacuo change to the left temporal horn. Subcortical and periventricular areas of gliosis and central cortical atrophy the supratentorial brain is present and stable. There is no acute cortical infarct or acute parenchymal hemorrhage. SL: LILA 04/17/2018 - - Read by: Zaid Mackey MD Dictated Date/time: 04/17/18 13:52 Electronically Signed by: Zaid Mackey MD 04/17/18 13:58 FINAL REPORT [facility] wo contrast CT Brain wo contrast CT Clinical Indication: - per Dr. Martinez he wants patient to have another CT scan prior to appt on 04/[address] was done on 03/31 pt needs another Comparison: Comparison is made to CT study of 03/30/2018 TECHNIQUE: CT images were obtained from the foramen magnum to the vertex without the use of intravenous contrast on a multidetector CT. Coronal and sagittal reconstructions were obtained. 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 The total depth of the subdural is 1.3 cm, similar to the previous study. There is minimal attenuation of the cortical sulci and gyri of the left parietal lobe. There is minimal attenuation of the interhemispheric cistern. There is underlying cortical atrophy. There is no midline shift. There is no acute cortical infarct or intraparenchymal hemorrhage. Subcortical and periventricular areas of gliosis and demyelination is present. There is a chronic infarct/encephalomalacia of the left lateral temporal lobe, which was present previously. VENTRICLES: There is no intraventricular hemorrhage or obstructive hydrocephalus. Ventriculomegaly with prominence of the temporal horns and body the right lateral ventricle is present there is minimal attenuation the body of the left without a midline shift associated with the subdural fluid collection. ORBITS, MASTOIDS AND PARANASAL SINUSES: There is a hypoplastic and partially visualized left maxillary sinus. There is tomi bullosa right middle turbinate. There is no nasal polyposis. There is mucosal inflammatory changes and fluid in the dependent left lateral sphenoid sinus which was not present previously.. The mastoid air cells are clear. SKULL: There is no fracture the cranium. There is hyperostosis frontalis interna. If there is further concern for intracranial pathology or acute stroke, MRI of the brain may be performed for complete assessment. 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 The total depth of the subdural is 1.3 cm, similar to the previous study. There is minimal attenuation of the cortical sulci and gyri of the left parietal lobe. There is minimal attenuation of the interhemispheric cistern. There is underlying cortical atrophy. There is no midline shift. There is no acute cortical infarct or intraparenchymal hemorrhage. Subcortical and periventricular areas of gliosis and demyelination is present. There is a chronic infarct/encephalomalacia of the left lateral temporal lobe, which was present previously. 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 - pt is scheduled w/ Trauma clinic on 04/05 @ 12:30pm. ADDITIONAL INFORMATION: . COMPARISON: CT head of 03/14/2018. TECHNIQUE: Routine axial CT images of the brain were obtained. IV contrast: None. CT imaging performed at this location utilizes radiation dose optimization techniques which include one or more of the following: -Automated exposure control -Adjustment of the mA and/or kV according to patient size -Use of iterative reconstruction technique CT Radiation Dose DLP 660 mGy-cm FINDINGS: Stable evolving recent extra-axial left hemispheric subdural hemorrhage without significant local mass effect or midline shift. No definite new intracranial hemorrhage detected. Diffuse cerebral atrophy and moderate chronic small vessel ischemic change. Felix-white matter distinction is preserved. The ventricles are stable. The basal cisterns and sulci are normal in size. Marked atherosclerotic calcification of the distal internal carotid and vertebral arteries. Mild chronic inflammatory change of the paranasal sinuses and atelectatic left maxillary sinus. The mastoid air cells are clear. IMPRESSION: 1. Stable evolving recent extra-axial left hemispheric subdural hemorrhage without significant local mass effect or midline shift. No definite new intracranial hemorrhage detected. 2. Diffuse cerebral atrophy and moderate chronic small vessel ischemic change. If there is further concern for intracranial pathology or acute stroke, MRI of the brain may be performed for complete assessment. SL: [id number] 03/30/2018 - - Read by: Eduin Reeves MD Dictated Date/time: 03/30/18 14:00 Electronically Signed by: Eduin Reeves MD 03/30/18 14:17 FINAL REPORT [facility] CHEM PANEL eGFR 60 mL/min/1.73m2 03/16/2018 Result Comment: The eGFR is calculated using the CKD-EPI formula. In most young, healthy individuals the eGFR will be >90 mL/min/1.73m2. The eGFR declines with age. An eGFR of 60-89 may be normal in some populations, particularly the elderly, for whom the CKD-EPI formula has not been extensively validated. Use of the eGFR is not recommended in the following populations: Individuals with unstable creatinine concentrations, including patients and those with serious co-morbid conditions. Patients with extremes in muscle mass or diet. The data above are obtained from the National Kidney Disease Education Program (NKDEP) which additionally recommends that when the eGFR is used in patients with extremes of body mass index for purposes of drug dosing, the eGFR should be multiplied by the estimated BMI. [facility] CHEM PANEL Sodium Lvl 137 meq/L 135 - 145 03/16/2018 [facility] CHEM PANEL BUN 22 mg/dL 7 - 22 03/16/2018 [facility] CHEM PANEL Glucose Lvl 93 mg/dL 70 - 99 03/16/2018 [facility] CHEM PANEL Chloride Lvl 105 meq/L 95 - 109 03/16/2018 [facility] CHEM PANEL Potassium Lvl 4.2 meq/L 3.5 - 5.1 03/16/2018 [facility] CHEM PANEL Creatinine Lvl 0.90 mg/dL 0.50 - 1.40 03/16/2018 [facility] CHEM PANEL Calcium Lvl 9.5 mg/dL 8.5 - 10.5 03/16/2018 [facility] CHEM PANEL CO2 27 meq/L 24 - 32 03/16/2018 [facility] CHEM PANEL AGAP 9.2 meq/L 10.0 - 20.0 03/16/2018 [facility] HEMATOLOGY RDW 15.1 % 11.5 - 14.5 03/16/2018 [facility] HEMATOLOGY Platelet 208 K/CMM 133 - 450 03/16/2018 [facility] HEMATOLOGY MPV 10.2 fL 7.4 - 10.4 03/16/2018 [facility] HEMATOLOGY MCHC 34.4 g/dL 32.0 - 36.0 03/16/2018 [facility] HEMATOLOGY Hct 31.8 % 36.0 - 48.0 03/16/2018 [facility] HEMATOLOGY MCH 29.2 pg 27.0 - 31.0 03/16/2018 [facility] HEMATOLOGY MCV 84.9 fL 80.0 - 98.0 03/16/2018 [facility] HEMATOLOGY Hgb 10.9 g/dL 12.0 - 16.0 03/16/2018 [facility] HEMATOLOGY RBC 3.74 M/CMM 4.20 - 5.40 03/16/2018 [facility] HEMATOLOGY WBC 7.2 K/CMM 3.7 - 10.4 03/16/2018 [facility] HEMATOLOGY Eosinophils # 0.3 K/CMM 0.0 - 0.5 03/16/2018 [facility] HEMATOLOGY Monocytes 12.3 % 2.0 - 12.0 03/16/2018 [facility] HEMATOLOGY Lymphocytes 27.6 % 20.0 - 40.0 03/16/2018 [facility] HEMATOLOGY Segs 55.4 % 45.0 - 75.0 03/16/2018 [facility] HEMATOLOGY Monocytes # 0.9 K/CMM 0.0 - 0.8 03/16/2018 [facility] HEMATOLOGY Lymphocytes # 2.0 K/CMM 1.0 - 5.5 03/16/2018 [facility] HEMATOLOGY Neutrophils # 4.0 K/CMM 1.5 - 8.1 03/16/2018 [facility] HEMATOLOGY Basophils 0.4 % 0.0 - 1.0 03/16/2018 [facility] HEMATOLOGY Eosinophils 4.3 % 0.0 - 4.0 03/16/2018 [facility] CHEM PANEL eGFR 71 mL/min/1.73m2 03/15/2018 Result Comment: The eGFR is calculated using the CKD-EPI formula. In most young, healthy individuals the eGFR will be >90 mL/min/1.73m2. The eGFR declines with age. An eGFR of 60-89 may be normal in some populations, particularly the elderly, for whom the CKD-EPI formula has not been extensively validated. Use of the eGFR is not recommended in the following populations: Individuals with unstable creatinine concentrations, including patients and those with serious co-morbid conditions. Patients with extremes in muscle mass or diet. The data above are obtained from the National Kidney Disease Education Program (NKDEP) which additionally recommends that when the eGFR is used in patients with extremes of body mass index for purposes of drug dosing, the eGFR should be multiplied by the estimated BMI. [facility] CHEM PANEL Glucose Lvl 86 mg/dL 70 - 99 03/15/2018 [facility] CHEM PANEL BUN 16 mg/dL 7 - 22 03/15/2018 [facility] CHEM PANEL Creatinine Lvl 0.78 mg/dL 0.50 - 1.40 03/15/2018 [facility] CHEM PANEL CO2 24 meq/L 24 - 32 03/15/2018 [facility] CHEM PANEL Calcium Lvl 8.9 mg/dL 8.5 - 10.5 03/15/2018 [facility] CHEM PANEL Sodium Lvl 139 meq/L 135 - 145 03/15/2018 [facility] CHEM PANEL Potassium Lvl 3.6 meq/L 3.5 - 5.1 03/15/2018 [facility] CHEM PANEL Chloride Lvl 106 meq/L 95 - 109 03/15/2018 [facility] CHEM PANEL AGAP 12.6 meq/L 10.0 - 20.0 03/15/2018 [facility] HEMATOLOGY MCV 85.3 fL 80.0 - 98.0 03/15/2018 [facility] HEMATOLOGY MCH 29.1 pg 27.0 - 31.0 03/15/2018 [facility] HEMATOLOGY Hct 30.2 % 36.0 - 48.0 03/15/2018 [facility] HEMATOLOGY Hgb 10.3 g/dL 12.0 - 16.0 03/15/2018 [facility] HEMATOLOGY WBC 8.3 K/CMM 3.7 - 10.4 03/15/2018 [facility] HEMATOLOGY RBC 3.54 M/CMM 4.20 - 5.40 03/15/2018 [facility] HEMATOLOGY MCHC 34.1 g/dL 32.0 - 36.0 03/15/2018 [facility] HEMATOLOGY Platelet 216 K/CMM 133 - 450 03/15/2018 [facility] HEMATOLOGY RDW 15.2 % 11.5 - 14.5 03/15/2018 [facility] HEMATOLOGY MPV 10.7 fL 7.4 - 10.4 03/15/2018 [facility] HEMATOLOGY Neutrophils # 5.2 K/CMM 1.5 - 8.1 03/15/2018 [facility] HEMATOLOGY Lymphocytes # 1.9 K/CMM 1.0 - 5.5 03/15/2018 [facility] HEMATOLOGY Eosinophils # 0.1 K/CMM 0.0 - 0.5 03/15/2018 [facility] HEMATOLOGY Monocytes # 1.1 K/CMM 0.0 - 0.8 03/15/2018 [facility] HEMATOLOGY Segs 62.9 % 45.0 - 75.0 03/15/2018 [facility] HEMATOLOGY Lymphocytes 22.6 % 20.0 - 40.0 03/15/2018 [facility] HEMATOLOGY Basophils 0.3 % 0.0 - 1.0 03/15/2018 [facility] HEMATOLOGY Monocytes 13.3 % 2.0 - 12.0 03/15/2018 [facility] HEMATOLOGY Eosinophils 0.9 % 0.0 - 4.0 03/15/2018 [facility] URINE AND STOOL UA WBC 3 /HPF 0 - 5 03/15/2018 [facility] URINE AND STOOL UA Leuk Est Negative (03/14/18 8:16 PM) Negative 03/15/2018 [facility] URINE AND STOOL UA Bacteria Occasional /HPF None Seen /HPF 03/15/2018 [facility] URINE AND STOOL UA RBC 13 /HPF 0 - 2 03/15/2018 [facility] URINE AND STOOL UA Mucus Few /LPF None Seen /LPF 03/15/2018 [facility] URINE AND STOOL UA Ketones 10 mg/dL Negative mg/dL 03/15/2018 [facility] URINE AND STOOL UA Blood Trace *ABN* (03/14/18 8:16 PM) Negative 03/15/2018 [facility] URINE AND STOOL UA Bili Negative *NA* (03/14/18 8:16 PM) Negative 03/15/2018 [facility] URINE AND STOOL UA Nitrite Negative (03/14/18 8:16 PM) Negative 03/15/2018 [facility] URINE AND STOOL UA Urobilinogen 2.0 mg/dL 0.1 - 1.0 03/15/2018 [facility] URINE AND STOOL UA Sq Epi None Seen 03/15/2018 [facility] URINE AND STOOL UA Renal Epi RARE <=0 03/15/2018 [facility] URINE AND STOOL UA Amorph Maisha Occasional /HPF None Seen /HPF 03/15/2018 [facility] URINE AND STOOL UA Color Yellow *NA* (03/14/18 8:16 PM) Yellow 03/15/2018 [facility] URINE AND STOOL UA Turbidity Clear (03/14/18 8:16 PM) Clear 03/15/2018 [facility] URINE AND STOOL UA pH 6.5 5.0 - 8.0 03/15/2018 [facility] URINE AND STOOL UA Spec Grav 1.014 <=1.030 03/15/2018 [facility] URINE AND STOOL UA Glucose Negative mg/dL Negative mg/dL 03/15/2018 [facility] URINE AND STOOL UA Protein Negative mg/dL Negative mg/dL 03/15/2018 [facility] CHEM PANEL Magnesium Lvl 2.3 mg/dL 1.8 - 2.4 03/14/2018 [facility] CHEM PANEL eGFR 68 mL/min/1.73m2 03/14/2018 Result Comment: The eGFR is calculated using the CKD-EPI formula. In most young, healthy individuals the eGFR will be >90 mL/min/1.73m2. The eGFR declines with age. An eGFR of 60-89 may be normal in some populations, particularly the elderly, for whom the CKD-EPI formula has not been extensively validated. Use of the eGFR is not recommended in the following populations: Individuals with unstable creatinine concentrations, including patients and those with serious co-morbid conditions. Patients with extremes in muscle mass or diet. The data above are obtained from the National Kidney Disease Education Program (NKDEP) which additionally recommends that when the eGFR is used in patients with extremes of body mass index for purposes of drug dosing, the eGFR should be multiplied by the estimated BMI. [facility] CHEM PANEL CO2 26 meq/L 24 - 32 03/14/2018 [facility] CHEM PANEL Calcium Lvl 8.8 mg/dL 8.5 - 10.5 03/14/2018 [facility] CHEM PANEL Chloride Lvl 108 meq/L 95 - 109 03/14/2018 [facility] CHEM PANEL Potassium Lvl 4.0 meq/L 3.5 - 5.1 03/14/2018 [facility] CHEM PANEL Sodium Lvl 139 meq/L 135 - 145 03/14/2018 [facility] CHEM PANEL Creatinine Lvl 0.81 mg/dL 0.50 - 1.40 03/14/2018 [facility] CHEM PANEL Glucose Lvl 102 mg/dL 70 - 99 03/14/2018 [facility] CHEM PANEL BUN 17 mg/dL 7 - 22 03/14/2018 [facility] CHEM PANEL AGAP 9.0 meq/L 10.0 - 20.0 03/14/2018 [facility] CHEM PANEL Phosphorus 3.1 mg/dL 2.5 - 4.5 03/14/2018 [facility] HEMATOLOGY Eosinophils # 0.3 K/CMM 0.0 - 0.5 03/14/2018 [facility] HEMATOLOGY Monocytes # 0.9 K/CMM 0.0 - 0.8 03/14/2018 [facility] HEMATOLOGY Lymphocytes 13.5 % 20.0 - 40.0 03/14/2018 [facility] HEMATOLOGY Segs 72.7 % 45.0 - 75.0 03/14/2018 [facility] HEMATOLOGY Monocytes 10.5 % 2.0 - 12.0 03/14/2018 [facility] HEMATOLOGY Eosinophils 2.9 % 0.0 - 4.0 03/14/2018 [facility] HEMATOLOGY Neutrophils # 6.5 K/CMM 1.5 - 8.1 03/14/2018 [facility] HEMATOLOGY Lymphocytes # 1.2 K/CMM 1.0 - 5.5 03/14/2018 [facility] HEMATOLOGY Basophils 0.4 % 0.0 - 1.0 03/14/2018 [facility] HEMATOLOGY Hgb 11.0 g/dL 12.0 - 16.0 03/14/2018 [facility] HEMATOLOGY Hct 31.9 % 36.0 - 48.0 03/14/2018 [facility] HEMATOLOGY RBC 3.77 M/CMM 4.20 - 5.40 03/14/2018 [facility] HEMATOLOGY WBC 8.9 K/CMM 3.7 - 10.4 03/14/2018 [facility] HEMATOLOGY MCHC 34.3 g/dL 32.0 - 36.0 03/14/2018 [facility] HEMATOLOGY RDW 15.0 % 11.5 - 14.5 03/14/2018 [facility] HEMATOLOGY MCH 29.0 pg 27.0 - 31.0 03/14/2018 [facility] HEMATOLOGY MCV 84.6 fL 80.0 - 98.0 03/14/2018 [facility] HEMATOLOGY MPV 9.9 fL 7.4 - 10.4 03/14/2018 [facility] HEMATOLOGY Platelet 220 K/CMM 133 - 450 03/14/2018 [facility] PARATHYROID PROFILE Ca Norm WB 1.22 mMol/L 1.05 - 1.25 03/14/2018 [facility] PARATHYROID PROFILE Ca Ion WB 1.26 mMol/L 1.05 - 1.25 03/14/2018 [facility] Brain wo contrast MRI Brain wo contrast MRI EXAM: MRI BRAIN WITHOUT CONTRAST DATE: 03/14/2018 at 3:19 PM INDICATION: 82-year-old female patient with past medical history of hypertension, hyperlipidemia, and hypothyroidism, found to have a left subdural hematoma following a fall from standing. Acute onset of confusion, and aphasia. Clinical suspicion of a left MCA infarct. COMPARISON: Multiple CT of the head without contrast dated 03/12, 03/13 and 03/14/2018 TECHNIQUE: Multiplanar, multisequence MRI of the brain without intravenous contrast. IV contrast: None. FINDINGS: Diffusion-weighted images fail to demonstrate any recent ischemic change. Accounting for differences in technique, there has not been interval change in the size and extension of the left frontotemporoparietal subdural hematoma, measuring up to 13 mm in thickness. The hematoma causes subtle mass effect upon the adjacent brain parenchyma evidenced by asymmetry of the ventricular system and effacement of the corresponding sulci. Area of encephalomalacia of the left temporal lobe. Generalized dilation of the supratentorial ventricular system, associated with proportional widening of the subarachnoid space, indicating diffuse brain volume loss. Multiple T2/FLAIR hyperintense foci within the periventricular white matter, corresponding to chronic microvascular ischemic changes. Lack of flow-void within the right vertebral artery. Marked asymmetry in size of the maxillary sinuses, right greater than left. Cutaneous laceration of the left forehead. IMPRESSION: 1. No significant interval change in size of the left frontoparietal temporal subdural hematoma. 2. No areas of restricted diffusion concerning for acute ischemia are seen. 3. 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 4. Moderate nonspecific white matter changes most, secondary to chronic small vessel ischemia. 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 03/14/2018 - - This report was dictated by a Antichecking Iron Worker/Fellow/Physician Command And Control. I have personally reviewed the images as well as the interpretation and agree with the findings. Read by: Houston Peng Resident/Fellow/Physician Command And Control: Houston Peng Dictated Date/time: 03/14/18 16:11 Electronically Signed by: Jann Olea MD 03/14/18 17:18 FINAL REPORT [facility] Abdomen AP DX Abdomen AP DX EXAM: XR ABDOMEN 1 VIEW DATE: 03/14/2018 0905 hours INDICATION: Abdominal pain. COMPARISON: None. TECHNIQUE: Limited AP view of the abdomen. FINDINGS: Patient is turned to the right during the film. Post cholecystectomy clips project over the right upper quadrant abdomen. Partially visualized lower thorax demonstrates bibasilar subsegmental atelectasis. Moderate colonic stool burden is present. Air is present within the rectum. Nondilated small bowel loops are seen. Osteopenia is present. Bilateral degenerative changes are seen in the hip as well as multilevel lower thoracolumbar spine. IMPRESSION: No bowel obstruction. Moderate to severe colonic stool burden may indicate constipation. 03/14/2018 - - This report was dictated by a Antichecking Iron Worker/Fellow/Physician Command And Control. I have personally reviewed the images as well as the interpretation and agree with the findings. 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 TECHNIQUE: Axial CT images of the brain were obtained. Sagittal and coronal reformats. IV contrast: None. FINDINGS: The left temporoparietal subdural hemorrhage measures up to 13 mm in maximal dimension, unchanged from the prior exam. There is mild mass effect on the underlying parenchyma without appreciable midline shift. The ventricles are unchanged in size. The basal cisterns are patent. There is unchanged encephalomalacia of the left anterior temporal lobe. Global cerebral volume loss and chronic microvascular ischemic changes are again noted. No significant change in the soft tissue contusion the left lateral supraorbital region. 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 There is hyperostosis frontalis. IMPRESSION: Stable exam. The left temporoparietal subdural hemorrhage is unchanged without appreciable midline shift. 03/14/2018 - - This report was dictated by a Antichecking Iron Worker/Fellow/Physician Command And Control. I have personally reviewed the images as well as the interpretation and agree with the findings. 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 Severe knee osteoarthrosis. Extensive knee chondrocalcinosis. IMPRESSION: 1. No fracture identified. 2. Severe knee chondrocalcinosis and osteoarthrosis. 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 TECHNIQUE: PA and lateral views of the wrist FINDINGS/IMPRESSION: Comminuted displaced intra-articular fracture of the distal radius with dorsal displacement of the distalmost segment. 03/13/2018 - - This report was dictated by a Antichecking Iron Worker/Fellow/Physician Command And Control. I have personally reviewed the images as well as the interpretation and agree with the findings. Read by: Joo Youssef MD Resident/Fellow/Physician Command And Control: Joo Youssef MD Dictated Date/time: 03/13/18 14:20 Electronically Signed by: Cristiane aSlmon MD 03/13/18 22:34 FINAL REPORT [facility] BACTERIAL - SEROLOGY MRSA by PCR Negative (03/13/18 1:41 AM) 03/13/2018 [facility] CHEM PANEL Magnesium Lvl 2.0 mg/dL 1.8 - 2.4 03/13/2018 [facility] PARATHYROID PROFILE Ca Ion WB 1.23 mMol/L 1.05 - 1.25 03/13/2018 [facility] PARATHYROID PROFILE Ca Norm WB 1.21 mMol/L 1.05 - 1.25 03/13/2018 [facility] HEMATOLOGY ASA Effect Plt 534 ARU 03/13/2018 [facility] Brain wo contrast CT Brain wo contrast CT EXAM: CT HEAD WITHOUT CONTRAST DATE: 03/13/2018 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 TECHNIQUE: Multiple axial images were obtained through the head from vertex to the skull base. Axial bone algorithm reconstruction images are provided. COMPARISON: Prior CT scan of the head dated 03/12/2018 at 10:21 PM FINDINGS: Again identified is left parietal, temporal convexity extra-axial hemorrhage consistent with subdural hemorrhage with maximum thickness measures up to 12.5 mm. With given difference in slice angulation, there has been no interval significant change. There is mild mass effect over the underlying left parietal and the left temporal lobe without [id number] midline shift. Stable appearance of encephalomalacia within the left temporal pole. No definite new parenchymal abnormality or new hemorrhage is identified. Overall ventricles are stable in size and configuration. Basal cisterns are grossly preserved. There is no evidence of downward herniation at the level of foramen magnum. No interval significant adverse changes in visualized paranasal sinuses, orbits, mastoid cavities and calvarium. IMPRESSION: 1. Overall no interval significant adverse change. 2. Stable left cerebral convexity subdural hemorrhage with mass effect over the underlying left posterior cerebral hemisphere without [id number] midline shift. 3. Stable ventricular size. 4. Stable encephalomalacia within the left temporal lobe. These findings are in agreement with previous preliminary report made by collection agent radiology physician. 03/13/2018 - - This report was dictated by a Antichecking Iron Worker/Fellow/Physician Command And Control. I have personally reviewed the images as well as the interpretation and agree with the findings. Read by: Silverio Cedeño MD Resident/Fellow/Physician Command And Control: Silverio Cedeño MD Dictated Date/time: 03/13/18 04:41 Electronically Signed by: Junior Araya MD 03/13/18 07:31 FINAL REPORT [facility] BLOOD BANK RESULTS Platelet product Product available (03/12/18 9:27 PM) 03/13/2018 [facility] BLOOD BANK RESULTS ABO/Rh O NEG 03/13/2018 [facility] BLOOD BANK RESULTS Antibody Scrn Negative (03/12/18 9:22 PM) 03/13/2018 [facility] CARDIAC ENZYMES Troponin-I null 0.00 - 0.40 03/13/2018 [facility] CHEM PANEL Lactic Acid Lvl 0.9 mMol/L 0.5 - 2.2 03/13/2018 [facility] HEMATOLOGY PTT 33.9 s 22.9 - 35.8 03/13/2018 [facility] HEMATOLOGY Estimated % Lysis Rapid 0.0 % 0.0 - 7.5 03/13/2018 [facility] HEMATOLOGY K-time Rapid 0.8 min 0.6 - 2.3 03/13/2018 [facility] HEMATOLOGY Split Point Rapid 0.5 min 03/13/2018 [facility] HEMATOLOGY Angle Rapid 81 degrees 64 - 80 03/13/2018 [facility] HEMATOLOGY Max Amplitude Rapid 74 mm 52 - 71 03/13/2018 [facility] HEMATOLOGY G-value Rapid 14.2 K d/sc 5.0 - 11.6 03/13/2018 [facility] HEMATOLOGY ACT (TEG) Rapid 105 s 86 - 118 03/13/2018 [facility] HEMATOLOGY R-time Rapid 0.6 min 0.4 - 0.7 03/13/2018 [facility] HEMATOLOGY PT 13.5 s 12.0 - 14.7 03/13/2018 [facility] HEMATOLOGY INR 1.05 0.85 - 1.17 03/13/2018 [facility] Brain wo contrast CT Brain wo contrast CT EXAM: CT BRAIN WITHOUT CONTRAST DATE: 03/12/2018 INDICATION: "Left acute SDH" ADDITIONAL INFORMATION: None COMPARISON: Noncontrast head CT 03/12/2018 TECHNIQUE: Noncontrast axial CT images were acquired through the brain. 5 mm axial, sagittal, and coronal images were reviewed. IV contrast: None. FINDINGS: No interval adverse change. Persistent, predominantly hyperattenuating, left temporoparietal subdural hematoma. No interval change in thickness at 1.6 cm (series 2 image 17). The hemorrhage continues inferiorly into the left middle cranial fossa. Left temporal lobe encephalomalacia underlies the extra-axial hemorrhage. There is also small focus of left inferior frontal lobe encephalomalacia. Local mass effect with central displacement of the left cerebral hemisphere and mild ventricular effacement, but no herniation. No new parenchymal density abnormality. Increase in size of the left supraorbital hematoma. IMPRESSION: No interval adverse change in the 1.6 cm thick left subdural hematoma with local mass effect but no herniation. The final report agrees with the preliminary report by the radiology physician. 03/12/2018 - - This report was dictated by a Antichecking Iron Worker/Fellow/Physician Command And Control. I have personally reviewed the images as well as the interpretation and agree with the findings. 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 Lungs and pleura: No pulmonary or pleural based abnormality is identified. Heart and mediastinum: Unremarkable. Chest wall: Unremarkable. Bones: No acute bony abnormality is identified. IMPRESSION: No acute cardiopulmonary abnormality. 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 COMPARISON: None. TECHNIQUE: Multiplanar images of the cervical spine without contrast. Axial, sagittal and coronal images are provided. IV contrast: None. OUTSIDE REPORT: [facility] Multilevel degenerative changes. No acute abnormality. DISCUSSION: No acute fracture or malalignment is identified. 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 Facet joint arthrosis is also present. No acute soft tissue abnormality is identified. IMPRESSION: 1. No acute abnormality. 2. Degenerative disc disease. This report is in agreement with the initial interpretation obtained from the referring facility. 03/12/2018 - - Read by: Leonard Meyer MD Dictated Date/time: 03/12/18 21:44 Electronically Signed by: Leonard Meyer MD 03/12/18 21:46 FINAL REPORT [facility] Serum or plasma total bilirubin measurement (mass/volume) 0.4 0.2 - 1.2 03/12/2018 [facility] Aspartate Amino Transf (AST/SGOT) 21 5 - 34 03/12/2018 [facility] Serum or plasma alanine aminotransferase measurement (enzymatic activity/volume) 19 0 - 55 03/12/2018 [facility] Serum or plasma protein measurement (mass/volume) 6.5 6.5 - 8.1 03/12/2018 [facility] Serum or plasma albumin measurement (mass/volume) 3.7 3.5 - 5.0 03/12/2018 [facility] Plasma globulin measurement (mass/volume) 2.8 2.3 - 3.5 03/12/2018 [facility] Serum or plasma albumin/globulin mass ratio 1.3 0.8 - 2.0 03/12/2018 [facility] Serum or plasma alkaline phosphatase measurement (enzymatic activity/volume) 99 40 - 150 03/12/2018 [facility] Serum or plasma creatine kinase measurement (enzymatic activity/volume) 79 29 - 168 03/12/2018 [facility] Serum or plasma creatine kinase MB measurement (mass/volume) 1.70 0 - 5.0 03/12/2018 [facility] Troponin I measurement by highly sensitive enzyme immunoassay < 0.001 0 - 0.300 03/12/2018 [facility] Automated blood monocyte count as percentage of total leukocytes 8.9 4.4 - 11.3 03/12/2018 [facility] Automated blood eosinophil count as percentage of total leukocytes 1.7 0.0 - 6.0 03/12/2018 [facility] Automated blood basophil count as percentage of total leukocytes 0.4 0.0 - 1.0 03/12/2018 [facility] IM GRANULOCYTES % 0.6 0.0 - 1.0 03/12/2018 [facility] Automated blood neutrophil count 5.3 2.1 - 6.9 03/12/2018 [facility] Blood lymphocytes count (number/volume) 1.8 1.0 - 3.2 03/12/2018 [facility] Blood monocytes automated count (number/volume) 0.7 0.2 - 0.8 03/12/2018 [facility] Automated blood eosinophil count 0.1 0.0 - 0.4 03/12/2018 [facility] Automated blood basophil count (count/volume) 0.0 0.0 - 0.1 03/12/2018 [facility] Absolute Immature Granulocyte (auto 0.05 0 - 0.1 03/12/2018 [facility] Prothrombin time (PT) in platelet poor plasma by coagulation assay 13.4 11.9 - 14.5 03/12/2018 [facility] INR in Platelet poor plasma by Coagulation assay 0.94 03/12/2018 [facility] Activated partial thromboplastin time (aPTT) in platelet poor plasma bycoagulation assay 31.3 23.8 - 35.5 03/12/2018 [facility] Serum or plasma sodium measurement (moles/volume) 136 136 - 145 03/12/2018 [facility] Serum or plasma potassium measurement (moles/volume) 4.1 3.5 - 5.1 03/12/2018 [facility] Serum or plasma chloride measurement (moles/volume) 104 98 - 107 03/12/2018 [facility] Serum or plasma carbon dioxide, total measurement (moles/volume) 24 22 - 29 03/12/2018 [facility] Serum or plasma anion gap 12.1 8 - 16 03/12/2018 [facility] Serum or plasma urea nitrogen measurement (mass/volume) 22 7 - 26 03/12/2018 [facility] Serum or plasma creatinine measurement (mass/volume) 0.96 0.57 - 1.11 03/12/2018 [facility] Serum or plasma urea nitrogen/creatinine mass ratio 23 6 - 25 03/12/2018 [facility] Estimated glomerular filtration rate (GFR) determination 56 60 03/12/2018 [facility] Glucose measurement 96 74 - 118 03/12/2018 [facility] Serum or plasma calcium measurement (mass/volume) 10.0 8.4 - 10.2 03/12/2018 [facility] Serum or plasma total bilirubin measurement (mass/volume) 0.4 0.2 - 1.2 03/12/2018 [facility] Aspartate Amino Transf (AST/SGOT) 21 5 - 34 03/12/2018 [facility] Serum or plasma alanine aminotransferase measurement (enzymatic activity/volume) 19 0 - 55 03/12/2018 [facility] Serum or plasma protein measurement (mass/volume) 6.5 6.5 - 8.1 03/12/2018 [facility] Serum or plasma albumin measurement (mass/volume) 3.7 3.5 - 5.0 03/12/2018 [facility] Plasma globulin measurement (mass/volume) 2.8 2.3 - 3.5 03/12/2018 [facility] Serum or plasma albumin/globulin mass ratio 1.3 0.8 - 2.0 03/12/2018 [facility] Serum or plasma alkaline phosphatase measurement (enzymatic activity/volume) 99 40 - 150 03/12/2018 [facility] Serum or plasma creatine kinase measurement (enzymatic activity/volume) 79 29 - 168 03/12/2018 [facility] Serum or plasma creatine kinase MB measurement (mass/volume) 1.70 0 - 5.0 03/12/2018 [facility] Troponin I measurement by highly sensitive enzyme immunoassay < 0.001 0 - 0.300 03/12/2018 [facility] Vital Signs Vital Sign Value Date Comments Source Weight 65.909 04/05/2018 [facility] Systolic (mm Hg) 118 04/05/2018 [facility] Diastolic (mm Hg) 77 04/05/2018 [facility] Temperature Oral (F) 98.7 F 04/05/2018 [facility] Heart Rate 77 04/05/2018 [facility] Respitory Rate 18 03/17/2018 [facility] Systolic (mm Hg) 105 03/17/2018 [facility] Diastolic (mm Hg) 64 03/17/2018 [facility] Temperature Oral (F) 97.5 F 03/17/2018 [facility] Heart Rate 74 03/17/2018 [facility] Temperature Oral (F) 98.7 F 03/17/2018 [facility] Heart Rate 66 03/17/2018 [facility] Respitory Rate 17 03/17/2018 [facility] Systolic (mm Hg) 114 03/17/2018 [facility] Diastolic (mm Hg) 76 03/17/2018 [facility] Systolic (mm Hg) 108 03/16/2018 [facility] Diastolic (mm Hg) 64 03/16/2018 [facility] Respitory Rate 18 03/16/2018 [facility] Temperature Oral (F) 97.1 F 03/16/2018 [facility] Heart Rate 69 03/16/2018 [facility] Weight 65.006 03/13/2018 [facility] BMI Calculated 26.21 03/13/2018 [facility] Height 157.48 cm 03/13/2018 [facility] Encounters Location Location Details Encounter Type Encounter Number Reason For Visit Attending Provider ADM Date DC Date Status Source Departed Emergency Room [id number] ELDER CALERO MD 03/12/2018 03/12/2018 [facility] Inpatient [id number] Elder Calero 03/13/2018 03/17/2018 [facility] Phone Message [id number] 03/19/2018 03/21/2018 [facility] Phone Message [id number] 03/23/2018 03/25/2018 [facility] Phone Message [id number] 03/26/2018 03/28/2018 [facility] Phone Message [id number] 03/29/2018 03/31/2018 [facility] Outpatient [id number] Louis Martinez 03/30/2018 03/31/2018 [facility] Neurosurgery [facility] Phone Message [id number] 04/02/2018 04/04/2018 [facility] Phone Message [id number] 04/02/2018 04/04/2018 [facility] Phone Message [id number] 04/02/2018 04/04/2018 [facility] Outpatient [id number] Louis Martinez 04/03/2018 04/04/2018 [facility] Outpatient [id number] [facility] 04/05/2018 [facility] Neurosurgery [facility] Outpatient [id number] TRAUMA VISIT 04/05/2018 04/06/2018 [facility] Outpatient [id number] Louis Pauljames 04/17/2018 04/18/2018 [facility] Outpatient [id number] [facility] 04/19/2018 Active [facility] MNA Neurosurgery [facility] Ambulatory Pre-Reg [id number] Elder Calero 04/19/2018 04/19/2018 [facility] Neurosurgery [facility] Phone Message [id number] 04/25/2018 04/27/2018 [facility]NA Neurosurgery [facility] Phone Message [id number] 04/30/2018 05/02/2018 [facility]NA Neurosurgery [facility] Phone Message [id number] 05/10/2018 05/12/2018 [facility] Outpatient [id number] Louis Martinez 05/29/2018 05/30/2018 [facility] MNA Neurosurgery [facility] Phone Message [id number] 05/30/2018 06/01/2018 [facility] Neurosurgery [facility] Phone Message [id number] 06/01/2018 06/03/2018 [facility] Departed Emergency Room [id number] ELDER CALERO MD 08/06/2018 08/06/2018 [facility] Procedures Procedure Code Date Perfomer Comments Source X-ray of chest, single view [id number] 08/06/2018 [facility] CT extremity lower wo contrast [id number] 08/06/2018 [facility] Computed tomography of brain without radiopaque contrast [id number] 03/12/2018 [facility] Computed tomography of cervical spine without contrast [id number] 03/12/2018 [facility] RPR S/N/AX/GEN/TRNK 2.5CM/< [id number] 03/12/2018 [facility] Bunionectomy [id number] [facility] Caesarean section<sup>1</sup> [id number] three [facility] Laminectomy<sup>2</sup> [id number] twice [facility] Repair of rotator cuff of shoulder<sup>3</sup> [id number] bilateral [facility] Bunionectomy [id number] [facility] Caesarean section<sup>1</sup> [id number] three [facility] Laminectomy<sup>2</sup> [id number] twice [facility] Repair of rotator cuff of shoulder<sup>3</sup> [id number] bilateral [facility] Bunionectomy [id number] [facility] Caesarean section<sup>1</sup> [id number] three [facility] Laminectomy<sup>2</sup> [id number] twice [facility] Repair of rotator cuff of shoulder<sup>3</sup> 09329603 bilateral [facility]
--- OUTSIDE RECORDS SUMMARY | 2018-08-16 14:13 | XMS REPORT | Summary of Care ---
Author Author [facility] Organization [facility] Neurosurgery [facility] Address Unknown Phone Unavailable Encounter HQ Encntr_alidwain(FIN) [id number] Date(s): 04/25/18 - 04/26/18 [facility] Neurosurgery [facility] [address], [address] [place], [place] [address] [phone] Vital Signs No data available for this section Problem List Condition Effective Dates Status Health Status Informant Hyperlipidemia(Confi Resolved rmed) Hypertension(Confirm Resolved ed) Hypothyroidism(Confi Resolved rmed) Allergies, Adverse Reactions, Alerts Substance Reaction Severity Status Demerol Active Medications No data available for this section Results No data available for this section Immunizations No data available for this section Procedures Procedure Date Related Diagnosis Body Site Status Bunionectomy Completed Caesarean section1 Completed Laminectomy2 Completed Repair of rotator cuff of shoulder3 Completed 1three 2twice 3bilateral Social History Social History Type Response Smoking Status Never smoker; Exposure to Tobacco Smoke None; Cigarette Smoking Last 365 Days No; Reg Smoking Cessation Counseling No entered on: 04/06/18 Assessment and Plan No data available for this section
--- OUTSIDE RECORDS SUMMARY | 2018-08-16 14:13 | XMS REPORT ---
Author [facility] Address Unknown Phone Unavailable Care Team Providers Care Doctor Of Nursing Practice Name Role Phone ANDRES GUY Unavailable Unavailable Elda NAVARRO Unavailable Unavailable Problems This patient has no known problems. Allergies, Adverse Reactions, Alerts This patient has no known allergies or adverse reactions. Medications This patient has no known medications. Results Test Description Test Time Test Comments Text Results Atomic Results Result Comments BONE and/or JOINT WHOLE BODY 2018-08-15 20:05:00 [place] [address] Patient Name: TANJA PEÑALOZA V MR #: [id number] : 1935 Age/Sex: 82/F Req #: [id number] Adm Physician: Ordered by: ANDRES GUY MD Report #: [id number] Location: [place] Room/Bed: Procedure: [id number] NM/BONE and/or JOINT WHOLE BODY Exam Date: 08/15/18 Exam Time: 1400 REPORT STATUS: Signed Bone Scan, three-phase Reason for exam: 82 F with primary osteoarthritis; she has had 4 falls in the past 6 months, most recently 10 days ago. She has right-sided bone pain. SHe has known right elbow fracture. Radiopharmaceutical: Tc-99m MDP 26 mCi Comparison: Right elbow radiograph 08/06/2018; right hip radiograph 08/06/2018; CT right hip 08/06/2018 Following intravenous administration of the radiopharmaceutical, dynamic flow and immediate blood pool images of the pelvis and hips followed by delayed total body and selected spot images were obtained. Flow and blood pool images show diffusely symmetric distribution of tracer activity to the pelvis and hips with subtle focal increased tracer in the region of the right greater trochanter. Delayed planar images show increased tracer in the right elbow, consistent with known fracture. Mild degenerative changes are seen in the cervical and upper to mid thoracic spine and in the left sternoclavicular junction. Focal mildly increased tracer at the anterior ends of the 6th, 7th and 8th left ribs is also consistent with previous trauma. Markedly increased tracer is seen in the sacrum and bilateral sacral alae contiguously. Markedly increased tracer is seen in the intertrochanteric right femur. Increased tracer activity is noted in the soft tissues of the right upper extremity related to recent fracture. Mildly increased tracer is seen in the soft tissues adjacent to the right hip. Impression: 1. Osteoblastic process in the right elbow consistent with known fracture. 2. An acute sacral insufficiency fracture is present. 3. An acute right intertrochanteric fracture is present. 4. Results called to Dr. Harleen Guy at 8:25 pm on 08/15/2018. Signed by: Dr. Davie Ralph M.D. on 08/15/2018 8:30 PM Dictated By: DAVIE RALPH MD 29 Transcribed By: IVETT on 08/15/182029 COPY TO: ANDRES GUY MD CT HIP RIGHT WO 2018-08-06 18:40:00 [place] [address] Patient Name: TANJA PEÑALOZA V MR #: [id number] : 1935 Age/Sex: 82/F Req #: [id number] Adm Physician: Ordered by: KIKI NAVARRO MD Report #: [id number] Location: ER Room/Bed: Procedure: [id number] CT/CT HIP RIGHT WO Exam Date: 08/06/18 Exam Time: 1730 REPORT STATUS: Signed EXAM: CT HIP RIGHT WO DATE: 08/06/2018 3:57 PM INDICAT ION: 82-year-old female, status post fall with injury to the right hip COMPARISON: None TECHNIQUE: The right hip was scanned using a multidetector helical scanner. Coronal and sagittal reformations were obtained with both bone and soft tissue kernel Reformation. CT low dose techniques were utilized, as applicable. IV Contrast: 0 ml Isovue 300/370 FINDINGS: Lack of IV contrast decreases sensitivity in evaluating abdominal and pelvic organs. Bones: No fracture or dislocation. No aggressive osseous lesion. Joints: Degenerative changes at the pubic symphysis. Moderate right hip joint space loss and marginal osteophyte formation. Soft tissue: Mild soft tissue stranding over the right hip over the greater trochanter with no underlying injury. Colonic diverticulosis. Chronic tendinopathy of the hamstring origin on the right. IMPRESSION: No acute abnormality. Signed by: Maurice Penn MD on 08/06/2018 6:46 PM Dictated By: WHIT PENN MD 45 Transcribed By: IVETT on 08/06/181845 COPY TO: KIKI NAVARRO MD HIP RIGHT 2-3 VW (+/- PELVIS) 2018-08-06 14:45:00 [place] [address] Patient Name: TANJA PEÑALOZA V MR #: [id number] : 1935 Age/Sex: 82/F Req #: [id number] Adm Physician: Ordered by: KIKI NAVARRO MD Report #: [id number] Location: ER Room/Bed: Procedure: DX/HIP RIGHT 2-3 VW (+/- PELVIS) Exam Date: Exam Time: REPORT STATUS: Signed Right hip and pelvis, 2 views. History: Fall. Findings: The soft tissues are normal. Bone mineralization is normal. There is no evidence of fracture or dislocation. There are no lytic or sclerotic lesions. Degenerative changes are present. IMPRESSION: Right hip DJD. No acute osseous abnormality. Signed by: [place] Portillo on 08/06/2018 3:01 PM Dictated By: DAVID PORTILLO MD 1501 Transcribed By: IVETT on 08/06/18 1501 COPY TO: KIKI NAVARRO MD ELBOW RIGHT COMPLETE 2018-08-06 14:39:00 [place] [address] Patient Name: TANJA PEÑALOZA V MR #: [id number] : 1935 Age/Sex: 82/F Req #: [id number] Adm Physician: Ordered by: KIKI NAVARRO MD Report #: [id number] Location: ER Room/Bed: Procedure: DX/ELBOW RIGHT COMPLETE Exam Date: 08/06/18 Exam Time: 1415 REPORT STATUS: Signed Right elbow, 3 views. History: Fall, trauma to the elbow. Findings: Joint effusion is present as well as posterior soft tissue swelling. Bone mineralization is normal. A comminuted fracture of the olecranon is present with posterior displacement of the proximal fragments.. There are no lytic or sclerotic lesions. The joint spaces are within normal limits. IMPRESSION: Comminuted olecranon fracture with joint effusion. Signed by: [place] Portillo on 08/06/2018 2:43 PM Dictated By: DAVID PORTILLO MD 1443 Transcribed By: IVETT on 08/06/18 1443 COPY TO: KIKI NAVARRO MD CHEST SINGLE (NOT PORTABLE) 2018-08-06 14:38:00 [place] [address] Patient Name: TANJA PEÑALOZA V MR #: [id number] : 1935 Age/Sex: 82/F Req #: [id number] Adm Physician: Ordered by: KIKI NAVARRO MD Report #: [id number] Location: ER Room/Bed: Procedure: [id number] DX/CHEST SINGLE (NOT PORTABLE) Exam Date: 08/06/18 Exam Time: 1415 REPORT STATUS: Signed Chest, 1 view, 08/06/2018. History: Fall. Comparison: None available. Findings: The cardiomediastinal silhouette and pulmonary vasculature are mildly prominent. There is no focal consolidation or pleural effusion. Degenerative changes are present in both shoulders and throughout the thoracic spine. There are no acute osseous or soft tissue abnormalities. Impression: Mild cardiomegaly and vascular congestion. Signed by: [place] Portillo on 08/06/2018 2:39 PM Dictated By: DAVID PORTILLO MD 1439 Transcribed By: IVETT on 08/06/18 143 COPY TO: KIKI NAVARRO MD CT CERVICAL SPINE WO 2018-03-12 19:25:00 [place] [address] Patient Name: TANJA PEÑALOZA V MR #: [id number] : 1935 Age/Sex: 82/F Req #: [id number] Adm Physician: Ordered by: KIKI NAVARRO MD Report #: [id number] Location: ER Room/Bed: Procedure: [id number] CT/CT CERVICAL SPINE WO Exam Date: Exam [...] be assessed by CT. Signed by: Dr. Marlen Jones M.D. on 03/12/2018 7:29 PM Dictated By: MARLEN JONES MD 28 Transcribed By: IVETT on 03/12/181928 COPY TO: KIKI NAVARRO MD CT BRAIN WO 2018-03-12 18:21:00 [place] [address] Patient Name: TANJA PEÑALOZA V MR #: [id number] : 1935 Age/Sex: 82/F Req #: [id number] Adm Physician: Ordered by: KIKI NAVARRO MD Report #: [id number] Location: ER Room/Bed: Procedure: [id number] CT/CT BRAIN WO Exam Date: Exam Time: [...] There is local mass effect with minimal ydyi-hm-ebmus midline shift. No other significant brain herniation. 2. No other acute intracranial abnormalities. 3. Anterior/lateral left temporal encephalomalacia may be from remote trauma. 4. Mild supratentorial chronic microvascular ischemic change. Mild generalized cerebral volume loss. Findings were discussed with Dr. Navarro at 6:28 PM on 03/12/2018. Signed by: Dr. Carlos A Fabian M.D. on 03/12/2018 6:33 PM Dictated By: CARLOS A FABIAN MD 183 Transcribed By: IVETT on 03/12/18 183 COPY TO: KIKI NAVARRO MD
--- OUTSIDE RECORDS SUMMARY | 2018-08-16 14:13 | XMS REPORT | Summary of Care ---
Author Author [facility] [place] [facility] Address Unknown Phone Unavailable Encounter HQ Frankientr_di(FIN) [phone] Date(s): 05/10/18 - 05/11/18 [facility] [place] [facility] [address], [address] [place], [place] [address] [phone] Vital Signs [...]
--- OUTSIDE RECORDS SUMMARY | 2018-08-16 14:13 | XMS REPORT | Summary of Care ---
Author Author [facility]SH[facility] Neurosurgery [facility] [place] Organization [facility] Neurosurgery [facility] Address Unknown Phone Unavailable Encounter HQ Frankientr_di(FIN) [phone] Date(s): 04/30/18 - 05/01/18 [facility] Neurosurgery [facility] [address], [address] [place], [place] [address] [phone] Vital Signs No [...]
--- OUTSIDE RECORDS SUMMARY | 2018-08-16 14:13 | XMS REPORT | Summary of Care ---
Author Author [facility] [place] [place] [facility] Neurosurgery [facility] [place] Address Unknown Phone Unavailable Encounter HQ Lisa_di(FIN) [phone] Date(s): 03/29/18 - 03/30/18 [facility] [place] [address], [address] [place], [place] [address] [phone] Vital [...] Reg Smoking Cessation Counseling No entered on: 03/12/18 Assessment and Plan No data available for this section
--- OUTSIDE RECORDS SUMMARY | 2018-08-16 14:13 | XMS REPORT | Summary of Care ---
Author Author [facility] [place] [facility] Neurosurgery [facility] Address Unknown Phone Unavailable Encounter HQ Encntr_alidwain(FIN) [phone] Date(s): 03/19/18 - 03/20/18 [facility] [place] [address], [address] [place], [place] [address] [phone] Vital Signs No [...]
--- OUTSIDE RECORDS SUMMARY | 2018-08-16 14:13 | XMS REPORT | Summary of Care ---
Author Author [facility] Organization [facility] Address Unknown Phone Unavailable Encounter HQ Padmajar_di(FIN) [phone] Date(s): 04/17/18 - 04/17/18 [facility] [address] [place] [address]- Discharge Disposition: Home or Self Care Attending Physician: Louis Martinez MD Referring Physician: Louis Martinez MD Vital Signs No data available for this [...]
--- OUTSIDE RECORDS SUMMARY | 2018-08-16 14:13 | XMS REPORT | Summary of Care ---
Author Author [facility] Organization [facility] Address Unknown Phone Unavailable Encounter HQ Lisa_di(FIN) [phone] Date(s): 04/03/18 - 04/03/18 [facility] [address] [place] [address]- Discharge Disposition: Home or Self Care Attending Physician: Louis Martinez MD Admitting Physician: Louis Martinez MD Referring Physician: Louis [...]
--- OUTSIDE RECORDS SUMMARY | 2018-08-16 14:13 | XMS REPORT | Summary of Care ---
Author Author [facility] [facility] Neurosurgery [facility] Address Unknown Phone Unavailable Encounter HQ Encntr_alidwain(FIN) [phone] Date(s): 04/19/18 - 04/19/18 [facility] [address], [address] [place], [place] [address] [phone] Attending Physician: [facility] Referring Physician: Elder Calero MD Vital Signs No data available for [...]
--- OUTSIDE RECORDS SUMMARY | 2018-08-16 14:13 | XMS REPORT | Summary of Care ---
Author Author [facility] Neurosurgery [facility] Organization [facility] Address Unknown Phone Unavailable Encounter HQ Lsia_di(FIN) [phone] Date(s): 06/01/18 - 06/02/18 [facility] [address] [place] [address]- Vital Signs No data available for this [...]
--- OUTSIDE RECORDS SUMMARY | 2018-08-16 14:13 | XMS REPORT | Summary of Care ---
Author Author [facility] [place] [facility] [place]surgery [facility] [place] Address Unknown Phone Unavailable Encounter HQ Lisa_di(FIN) [phone] Date(s): 04/05/18 - 04/05/18 [facility] [place] [place] [address], [address] [place], [place] [address] [phone] Discharge Disposition: Home or Self Care Attending Physician: [facility] Referring Physician: Elder aClero MD Vital Signs Most recent to 1 oldest [Reference Range]: Temperature Oral 98.7 DegF [96.4-99.1 DegF] (04/05/18 3:05 PM) Blood Pressure 118/77 mmHg [90-140/60-90 mmHg] (04/05/18 3:05 PM) Peripheral Pulse 77 bpm Rate [60-100 bpm] (04/05/18 3:05 PM) Weight 65.909 kg (04/05/18 3:05 PM) Problem List Condition Effective Dates Status Health Status Informant Hyperlipidemia(Confi Resolved rmed) Hypertension(Confirm Resolved ed) Hypothyroidism(Confi Resolved rmed) Allergies, Adverse Reactions, Alerts Substance Reaction Severity Status Demerol Active Medications No Known Medications Results No data available for this section [...]
--- OUTSIDE RECORDS SUMMARY | 2018-08-16 14:13 | XMS REPORT | Summary of Care ---
Author Author [facility] Neurosurgery [facility] [place] Organization [facility] Neurosurgery [facility] Address Unknown Phone Unavailable Encounter HQ Padmajar_di(FIN) [phone] Date(s): 03/23/18 - 03/24/18 [facility]surgery [facility] [address], [address] [place], [place] [address] [phone] Vital Signs No [...]
--- OUTSIDE RECORDS SUMMARY | 2018-08-16 14:13 | XMS REPORT | Summary of Care ---
Author Author [facility] Neurosurgery [facility] Organization [facility] Neurosurgery [facility] Address Unknown Phone Unavailable Encounter HQ Encntr_alidwain(FIN) [phone] Date(s): 04/02/18 - 04/03/18 [facility] Neurosurgery [facility] [address], [address] [place], [place] [address] [phone] Vital [...]
--- OUTSIDE RECORDS SUMMARY | 2018-08-16 14:13 | XMS REPORT | Summary of Care ---
Author Author [facility] Organization [facility] Address Unknown Phone Unavailable Encounter DSAHA Plunkett(JAMIN) [id number] Date(s): 03/12/18 - 03/17/18 [facility] [address] [employer] provided by [facility] [place] [address]- Discharge Disposition: Home or Self Care Attending Physician: Edison Blue MD Admitting Physician: Louis Martinez MD Referring Physician: Elder Calero MD Vital Signs 1 2 3 Most recent to oldest [Reference Range]: 157.48 cm (03/13/18 1:22 AM) Height 65 kg (03/13/18 5:27 AM) Current Weight 97.5 DegF (03/17/18 8:00 AM) 98.7 DegF (03/16/18 8:00 PM) 97.1 DegF (03/16/18 4:00 PM) Temperature Oral [96.4-99.1 DegF] 105/64 mmHg (03/17/18 8:00 AM) 114/76 mmHg (03/16/18 8:00 PM) 108/64 mmHg (03/16/18 4:00 PM) Blood Pressure [90-140/60-90 mmHg] 18 BRMIN (03/17/18 8:00 AM) 17 BRMIN (03/16/18 8:00 PM) 18 BRMIN (03/16/18 4:00 PM) Respiratory Rate [14-20 BRMIN] 74 bpm (03/17/18 8:00 AM) 66 bpm (03/16/18 8:00 PM) 69 bpm (03/16/18 4:00 PM) Peripheral Pulse Rate [60-100 bpm] 65.006 kg (03/13/18 1:22 AM) Weight 26.21 m2 (03/13/18 1:22 AM) Body Mass Index Problem List Condition Effective Dates Status Health Status Informant Hyperlipidemia(Confi Resolved rmed) Hypertension(Confirm Resolved ed) Hypothyroidism(Confi Resolved rmed) Allergies, Adverse Reactions, Alerts Substance Reaction Severity Status Demerol Active Medications aspirin 81 mg, PO, Daily, 0 Refill(s) Start Date: 03/13/18 Stop Date: 03/17/18 Status: Discontinued bisacodyl 10 mg, 1 supp, Route: OK, Drug form: SUPP, Daily, kg, PRN Constipation, Start da te: 03/12/18 22:08:00 LARRY OPERATOR, Duration: 30 day, Stop date: 04/11/18 22:07:00 LARRY OPERATOR Notes: (Same As: Dulcolax, Bisco-Lax) Start Date: 03/12/18 Stop Date: 03/17/18 Status: Discontinued bisacodyl 10 mg, 1 supp, Route: OK, Drug form: SUPP, Daily, Dosing Weight 65.006, kg, Star t date: 03/15/18 21:00:00 LARRY OPERATOR, Duration: 30 day, Stop date: 04/14/18 9:00:00 LARRY OPERATOR Notes: (Same As: Dulcolax, Bisco-Lax) Start Date: 03/15/18 Stop Date: 03/17/18 Status: Discontinued buPROPion 150 mg, PO, Daily, 0 Refill(s) Start Date: 03/13/18 Stop Date: 03/13/18 Status: Discontinued buPROPion 150 mg, 1 tab, Route: PO, Drug form: ERTAB, Q24H, Dosing Weight 65.006, kg, Star t date: 03/13/18 8:00:00 LARRY OPERATOR, Duration: 30 day, Stop date: 04/11/18 8:00:00 LARRY OPERATOR Notes: (Same as: Wellbutrin XL)"Do Not Crush" Start Date: 03/13/18 Stop Date: 03/17/18 Status: Discontinued buPROPion 150 mg/24 hours (XL) oral tablet, extended release 150 mg=1 tab, PO, Q24H, # 30 tab, 0 Refill(s) Start Date: 03/13/18 Status: Ordered calcium carbonate 500 mg (200 mg elemental calcium) oral tablet 1,000 mg, 2 tab, Route: PO, Drug form: CHEWTAB, PRN, Dosing Weight 65.006, kg, P RN Abnormal Lab Result, FOR ICU USE ONLY, Start date: 03/13/18 2:16:00 LARRY OPERATOR, Dura tion: 30 day, Stop date: 04/12/18 2:15:00 LARRY OPERATOR Notes: (Same As: Tums)Calcium Carbonate 500 vv=418 mg elemental calcium Dose=_ mg calcium carbonate ( mg elemental calcium) Start Date: 03/13/18 Stop Date: 03/13/18 Status: Discontinued calcium carbonate 500 mg (200 mg elemental calcium) oral tablet 500 mg, 1 tab, Route: PO, Drug form: CHEWTAB, PRN, Dosing Weight 65.006, kg, PRN Abnormal Lab Result, FOR ICU USE ONLY, Start date: 03/13/18 2:16:00 LARRY OPERATOR, Durati on: 30 day, Stop date: 04/12/18 2:15:00 LARRY OPERATOR Notes: (Same As: Natalies)Calcium Carbonate 500 jf=825 mg elemental calcium Dose=_ mg calcium carbonate ( mg elemental calcium) Start Date: 03/13/18 Stop Date: 03/13/18 Status: Discontinued calcium citrate =1 tab, PO, Daily, 0 Refill(s) Start Date: 03/13/18 Status: Ordered calcium gluconate + Sodium Chloride 0.9% IV 50 mL 1 gm, 10 mL, Route: IVPB, PRN, Dosing Weight 65.006, kg, PRN Abnormal Lab Result , Start date: 03/13/18 2:16:00 LARRY OPERATOR, Duration: 30 day, Stop date: 04/12/18 2:15:0 0 LARRY OPERATOR, FOR ICU USE ONLY Notes: WASTE: F/P - Sink; E - Municipal Trash Bin Start Date: 03/13/18 Stop Date: 03/13/18 Status: Discontinued docusate sodium 100 mg oral capsule 100 mg, 1 cap, Route: PO, Drug form: CAP, Q12H, kg, Start date: 03/13/18 9:00:00 LARRY OPERATOR, Duration: 30 day, Stop date: 04/11/18 21:00:00 LARRY OPERATOR Notes: (Same as: Colace) (Do Not Crush) Start Date: 03/13/18 Stop Date: 03/17/18 Status: Discontinued famotidine 20 mg, 2 mL, Route: IVP, Drug form: INJ, Q12H, kg, Start date: 03/13/18 9:00:00 LARRY OPERATOR, Duration: 30 day, Stop date: 04/11/18 21:00:00 LARRY OPERATOR Notes: (Same as: Pepcid)Can be dilute in 5-10cc NS IVP: Slow IV push over at le ast 2 minutes. Start Date: 03/13/18 Stop Date: 03/13/18 Status: Discontinued Fleet Mineral Oil Enema 133 mL, Route: OK, Drug Form: CALIXTO, Dosing Weight 65.006, kg, ONCE, Start date: 03/14/18 17:24:00 LARRY OPERATOR, Stop date: 03/14/18 17:24:00 LARRY OPERATOR Notes: (Same as:Fleet Mineral Oil Enema) Start Date: 03/14/18 Stop Date: 03/15/18 Status: Completed FLUoxetine 20 mg, 1 cap, Route: PO, Drug form: CAP, Daily, Dosing Weight 65.006, kg, Start date: 03/13/18 9:00:00 LARRY OPERATOR, Duration: 30 day, Stop date: 04/11/18 9:00:00 LARRY OPERATOR Notes: (Same as: Prozac, Sarafem) Start Date: 03/13/18 Stop Date: 03/17/18 Status: Discontinued FLUoxetine 20 mg oral capsule 20 mg=1 cap, PO, Daily, # 30 cap, 0 Refill(s) Start Date: 03/13/18 Status: Ordered heparin 5000 units/mL injectable solution 5,000 unit, 1 mL, Route: SUB-Q, Drug form: INJ, Q8H, Dosing Weight 65.006, kg, S tart date: 03/14/18 8:00:00 LARRY OPERATOR, Duration: 30 day, Stop date: 04/13/18 0:00:[address] Notes: porcine heparin Start Date: 03/14/18 Stop Date: 03/14/18 Status: Canceled heparin 5000 units/mL injectable solution 5,000 unit, 1 mL, Route: SUB-Q, Drug form: INJ, Q8H, Dosing Weight 65.006, kg, S tart date: 03/15/18 8:00:00 LARRY OPERATOR, Duration: 30 day, Stop date: 04/14/18 0:00:[address] Notes: porcine heparin Start Date: 03/15/18 Stop Date: 03/17/18 Status: Discontinued Insulin regular 4 unit, 0.04 mL, Route: SUB-Q, Drug form: SOLN, Sliding Scale, kg, PRN Blood Glu cose Results, Start date: 03/12/18 22:08:00 LARRY OPERATOR, Duration: 30 day, Stop date: 22:07:00 LARRY OPERATOR Notes: (Same as: Humulin R) Roll in palms of hands gently; Do not shake vigorou sly. "single patient use only"(Restricted to patients requiring a dose > 60 units)WASTE: F/P - Black; E - Municipal Trash Bin Stable for 28 days at room temperatureExpires in days from Date Start Date: 03/12/18 Stop Date: 03/13/18 Status: Discontinued Insulin regular 2 unit, 0.02 mL, Route: SUB-Q, Drug form: SOLN, Sliding Scale, kg, PRN Blood Glu cose Results, Start date: 03/12/18 22:08:00 LARRY OPERATOR, Duration: 30 day, Stop date: 22:07:00 LARRY OPERATOR Notes: (Same as: Humulin R) Roll in palms of hands gently; Do not shake vigorou sly. "single patient use only"(Restricted to patients requiring a dose > 60 units)WASTE: F/P - Black; E - Municipal Trash Bin Stable for 28 days at room temperatureExpires in days from Date Start Date: 03/12/18 Stop Date: 03/13/18 Status: Discontinued Insulin regular 6 unit, 0.06 mL, Route: SUB-Q, Drug form: SOLN, Sliding Scale, kg, PRN Blood Glu cose Results, Start date: 03/12/18 22:08:00 LARRY OPERATOR, Duration: 30 day, Stop date: 22:07:00 LARRY OPERATOR Notes: (Same as: Humulin R) Roll in palms of hands gently; Do not shake vigorou sly. "single patient use only"(Restricted to patients requiring a dose > 60 units)WASTE: F/P - Black; E - Municipal Trash Bin Stable for 28 days at room temperatureExpires in days from Date Start Date: 03/12/18 Stop Date: 03/13/18 Status: Discontinued Insulin regular 10 unit, 0.1 mL, Route: SUB-Q, Drug form: SOLN, Sliding Scale, kg, PRN Blood Glu cose Results, Start date: 03/12/18 22:08:00 LARRY OPERATOR, Duration: 30 day, Stop date: 22:07:00 LARRY OPERATOR Notes: (Same as: Humulin R) Roll in palms of hands gently; Do not shake vigorou sly. "single patient use only"(Restricted to patients requiring a dose > 60 units)WASTE: F/P - Black; E - Municipal Trash Bin Stable for 28 days at room temperatureExpires in days from Date Start Date: 03/12/18 Stop Date: 03/13/18 Status: Discontinued Insulin regular 8 unit, 0.08 mL, Route: SUB-Q, Drug form: SOLN, Sliding Scale, kg, PRN Blood Glu cose Results, Start date: 03/12/18 22:08:00 LARRY OPERATOR, Duration: 30 day, Stop date: 22:07:00 LARRY OPERATOR Notes: (Same as: Humulin R) Roll in palms of hands gently; Do not shake vigorou sly. "single patient use only"(Restricted to patients requiring a dose > 60 units)WASTE: F/P - Black; E - Municipal Trash Bin Stable for 28 days at room temperatureExpires in days from Date Start Date: 03/12/18 Stop Date: 03/13/18 Status: Discontinued Keppra 1,000 mg, Route: IV, ONCE, kg, Priority: STAT, Start date: 03/12/18 21:29:00 LARRY OPERATOR , Stop date: 03/12/18 21:29:00 LARRY OPERATOR Start Date: 03/12/18 Stop Date: 03/12/18 Status: Completed Keppra 1,000 mg, Route: IV, ONCE, kg, Start date: 03/12/18 21:30:00 LARRY OPERATOR, Stop date: 21:30:00 LARRY OPERATOR Start Date: 03/12/18 Stop Date: 03/12/18 Status: Discontinued Keppra + Sodium Chloride 0.9% IV 100 mL 500 mg, Route: IVPB, Q12H, Dosing Weight 65.006, kg, Start date: 03/14/18 9:00:0 0 LARRY OPERATOR, Duration: 30 day, Stop date: 04/12/18 21:00:00 LARRY OPERATOR Notes: Same as KeppraMix with 100 mL NS, LR or D5W MEDICATION WASTE Prod uct Size: 500 mgProduct Wasted: ___ mg Start Date: 03/14/18 Stop Date: 03/16/18 Status: Discontinued Keppra 500 mg oral tablet 500 mg, 1 tab, Route: PO, Drug form: TAB, Q12H, Dosing Weight 65.006, kg, Start date: 03/13/18 10:28:00 LARRY OPERATOR, Duration: 30 day, Stop date: 04/12/18 9:00:00 LARRY OPERATOR Notes: (Same as:Keppra) Start Date: 03/13/18 Stop Date: 03/14/18 Status: Discontinued Keppra 500 mg oral tablet 500 mg=1 tab, PO, Q12H, # 14 tab, 0 Refill(s) Start Date: 03/17/18 Stop Date: 03/24/18 Status: Ordered Keppra 500 mg oral tablet 500 mg, 1 tab, Route: PO, Drug form: TAB, Q12H, Dosing Weight 65.006, kg, Start date: 03/16/18 21:00:00 LARRY OPERATOR, Duration: 7 day, Stop date: 03/23/18 9:00:00 LARRY OPERATOR Start Date: 03/16/18 Stop Date: 03/17/18 Status: Discontinued labetalol 10 mg, 2 mL, Route: IVP, Drug form: INJ, Q15Min, kg, PRN Hypertension, Start mark e: 03/12/18 22:08:00 LARRY OPERATOR, Duration: 3 doses or times, Stop date: Limited # of ti mes Notes: (Same as: Normodyne, Trandate)Push over 2 minutes Give bolus over 2-3 mi nutes. Start Date: 03/12/18 Stop Date: 03/17/18 Status: Discontinued Lactated Ringers (Bolus) IV 1,000 mL, 2,000 ml/hr, Route: IV, ONCE, Priority: STAT, kg, Start date: 03/12/18 21:13:00 LARRY OPERATOR, Stop date: 03/12/18 21:13:00 LARRY OPERATOR Start Date: 03/12/18 Stop Date: 03/12/18 Status: Completed levETIRAcetam + Sodium Chloride 0.9% IV 100 mL 500 mg, Route: IVPB, Q12H, kg, Priority: Routine, Start date: 03/13/18 9:00:[address], Duration: 30 day, Stop date: 04/11/18 21:00:00 LARRY OPERATOR Notes: Same as KeppraMix with 100 mL NS, LR or D5W MEDICATION WASTE Prod uct Size: 500 mgProduct Wasted: ___ mg Start Date: 03/13/18 Stop Date: 03/13/18 Status: Discontinued lidocaine topical patch (5% film) 1 patch, Route: TOP, Daily, Drug form: FILM, Start date: 03/16/18 18:00:00 LARRY OPERATOR, Duration: 30 day, Stop date: 04/14/18 18:00:00 LARRY OPERATOR Start Date: 03/16/18 Stop Date: 03/17/18 Status: Discontinued Lyrica 25 mg, 1 cap, Route: PO, Drug form: CAP, Q8H, Dosing Weight 65.006, kg, Start da te: 03/16/18 16:00:00 LARRY OPERATOR, Duration: 30 day, Stop date: 04/15/18 8:00:00 LARRY OPERATOR Start Date: 03/16/18 Stop Date: 03/17/18 Status: Discontinued magnesium citrate 1.745 g/30 mL oral liquid 300 ml, Route: PO, Drug Form: LIQ, Dosing Weight 65.006, kg, ONCE, Start date: 0 03/15/18 14:04:00 LARRY OPERATOR, Stop date: 03/15/18 14:04:00 LARRY OPERATOR Notes: (Same as: Citrate of Magnesia)Concentration: 1.745 gm / 30 mL Start Date: 03/15/18 Stop Date: 03/15/18 Status: Completed magnesium oxide 800 mg, 2 tab, Route: PO, Drug form: TAB, PRN, Dosing Weight 65.006, kg, PRN Abn ormal Lab Result, FOR ICU USE ONLY, Start date: 03/13/18 2:16:00 LARRY OPERATOR, Duration: 30 day, Stop date: 04/12/18 2:15:00 LARRY OPERATOR Notes: (Same as: Mag-Ox 400)Magnesium oxide [id number] elemental magnesiumDose= ____mg magnesium oxide (___mg elemental magnesium) Start Date: 03/13/18 Stop Date: 03/13/18 Status: Discontinued magnesium sulfate 2 gm, 50 mL, Route: IVPB, Drug form: INJ, PRN, Dosing Weight 65.006, kg, PRN Abn ormal Lab Result, Start date: 03/13/18 2:16:00 LARRY OPERATOR, Duration: 30 day, Stop date: 04/12/18 2:15:00 LARRY OPERATOR, FOR ICU USE ONLY Notes: WASTE: F/P - Sink; E - Municipal Trash Bin Start Date: 03/13/18 Stop Date: 03/13/18 Status: Discontinued magnesium sulfate 2 gm in Water 50 ml 2 gm, 50 mL, Route: IVPB, Drug form: INJ, ONCE, Dosing Weight 65.006, kg, Start date: 03/13/18 16:26:00 LARRY OPERATOR, Stop date: 03/13/18 16:26:00 LARRY OPERATOR Notes: WASTE: F/P - Sink; E - Municipal Trash Bin Start Date: 03/13/18 Stop Date: 03/13/18 Status: Completed magnesium sulfate 2 gm in Water 50 ml 2 gm, Route: IVPB, Drug form: INJ, ONCE, Dosing Weight 65.006, kg, Start date: 0 03/13/18 8:40:00 LARRY OPERATOR, Stop date: 03/13/18 8:40:00 LARRY OPERATOR Start Date: 03/13/18 Stop Date: 03/13/18 Status: Discontinued Milk of Magnesia 30 ml, Route: PO, Drug Form: SUSP, Dosing Weight 65.006, kg, ONCE, Start date: 0 03/15/18 5:24:00 LARRY OPERATOR, Stop date: 03/15/18 5:24:00 LARRY OPERATOR Notes: (Same as: Milk of Magnesia, MOM) Start Date: 03/15/18 Stop Date: 03/15/18 Status: Completed morphine Sulfate 1 mg, 0.25 mL, Route: IVP, Drug form: SOLN, Q1H, kg, PRN Pain Score 7-10, Start date: 03/12/18 22:08:00 LARRY OPERATOR, Duration: 30 day, Stop date: 04/11/18 22:07:00 LARRY OPERATOR Notes: (Same as:MORPhine Sulfate) Start Date: 03/12/18 Stop Date: 03/13/18 Status: Discontinued [place] 5/325 oral tablet 1 tab, Route: PO, Drug Form: TAB, kg, Q6H, PRN Pain Score 4-6, STAT, Start date: 03/12/18 22:06:00 LARRY OPERATOR, Duration: 30 day, Stop date: 04/11/18 22:05:00 LARRY OPERATOR Notes: (Same as: [place] 325/5) Do not exceed 4gm/day of acetaminophen. Start Date: 03/12/18 Stop Date: 03/16/18 Status: Discontinued [place] 5/325 oral tablet 1 tab, Route: PO, Drug Form: TAB, kg, Q6H, PRN Pain Score 4-6, STAT, Start date: 03/12/18 22:06:00 LARRY OPERATOR, Duration: 30 day, Stop date: 04/11/18 22:05:00 LARRY OPERATOR Start Date: 03/12/18 Stop Date: 03/12/18 Status: Discontinued normal saline 0.9% IV 1,000 mL 1,000 mL, Rate: 75 ml/hr, Infuse over: 13.3 hr, Route: IV, Dosing Weight 65.006 kg, Total Volume: 1,000, Start date: 03/14/18 14:35:00 LARRY OPERATOR, Duration: 30 day, St op date: 04/13/18 14:34:00 LARRY OPERATOR, 1.71, m2 Start Date: 03/14/18 Stop Date: 03/15/18 Status: Discontinued normal saline 0.9% IV 1,000 mL 1,000 mL, Rate: 75 ml/hr, Infuse over: 13.3 hr, Route: IV, Total Volume: 1,000, Start date: 03/12/18 21:38:00 LARRY OPERATOR, Duration: 30 day, Stop date: 04/11/18 21:37:0 0 LARRY OPERATOR Start Date: 03/12/18 Stop Date: 03/13/18 Status: Discontinued ondansetron 4 mg, 2 mL, Route: IVP, Drug form: INJ, Q8H, kg, PRN Nausea & Vomiting, Start date: 03/12/18 22:08:00 LARRY OPERATOR, Duration: 30 day, Stop date: 04/11/18 22:07:00 LARRY OPERATOR Notes: (Same as: Zofran) MEDICATION WASTE Product Size: 4 mgProduct Was yaron: ___ mg Start Date: 03/12/18 Stop Date: 03/17/18 Status: Discontinued Phenergan 12.5 mg, 0.5 mL, Route: IVPB, Drug form: INJ, ONCE, Dosing Weight 65.006, kg, St art date: 03/14/18 8:19:00 LARRY OPERATOR, Stop date: 03/14/18 8:19:00 LARRY OPERATOR Notes: Do not give IV push. (Same as: Phenergan) Start Date: 03/14/18 Stop Date: 03/14/18 Status: Completed Phenergan 12.5 mg, Route: IVPB, ONCE, Dosing Weight 65.006, kg, PRN Nausea & Vomiting, Start date: 03/14/18 8:19:00 LARRY OPERATOR Start Date: 03/14/18 Stop Date: 03/14/18 Status: Discontinued potassium chloride 20 mEq, 15 mL, Route: NJ, Drug form: LIQ, PRN, Dosing Weight 65.006, kg, PRN Abn ormal Lab Result, Start date: 03/13/18 2:16:00 LARRY OPERATOR, Duration: 30 day, Stop date: 04/12/18 2:15:00 LARRY OPERATOR, FOR ICU USE ONLY Notes: (Same as: Potassium Chloride) Start Date: 03/13/18 Stop Date: 03/13/18 Status: Discontinued potassium chloride 10 mEq, 50 mL, Route: IVPB, Drug form: INJ, PRN, Dosing Weight 65.006, kg, PRN A bnormal Lab Result, Via peripheral line, Start date: 03/13/18 2:16:00 LARRY OPERATOR, Durat ion: 30 day, Stop date: 04/12/18 2:15:00 LARRY OPERATOR, FOR ICU USE ONLY Notes: (Same as: KCL) Infuse over 2 hours. Start Date: 03/13/18 Stop Date: 03/13/18 Status: Discontinued potassium chloride 20 mEq, 1 tab, Route: PO, Drug form: ERTAB, PRN, Dosing Weight 65.006, kg, PRN A bnormal Lab Result, Start date: 03/13/18 2:16:00 LARRY OPERATOR, Duration: 30 day, Stop mark e: 04/12/18 2:15:00 LARRY OPERATOR, FOR ICU USE ONLY Notes: (Same as: K-Dur 20)"Do Not Crush" Give with food and full glass of water For patients unable to swallow tablet, dissolve in one half glass of water. Allo w about 2 minutes for the tablets to disintegrate. Stir before giving to prepare slurry and administer.Please exclude Patients with feeding tube less than 14 Chinese (Dobhoff, J-tube etc) and pediatric and patients. Start Date: 03/13/18 Stop Date: 03/13/18 Status: Discontinued potassium chloride 20 mEq, 100 mL, Route: IVPB, Drug form: INJ, PRN, Dosing Weight 65.006, kg, PRN Abnormal Lab Result, Via central line, Start date: 03/13/18 2:16:00 LARRY OPERATOR, Duratio n: 30 day, Stop date: 04/12/18 2:15:00 LARRY OPERATOR, FOR ICU USE ONLY Notes: (Same as: KCL) Infuse no faster than 10 mEq/hr if given peripherally. Start Date: 03/13/18 Stop Date: 03/13/18 Status: Discontinued potassium phosphate + Sodium Chloride 0.9% IV 250 mL 30 mmol, 10 mL, Route: IVPB, PRN, Dosing Weight 65.006, kg, PRN Abnormal Lab Res ult, Start date: 03/13/18 2:16:00 LARRY OPERATOR, Duration: 30 day, Stop date: 04/12/18 2:1 5:00 LARRY OPERATOR, FOR ICU USE ONLY Notes: (Same as: K Phosphate.)Do not infuse phosphorous concurrently in the same line as TPN or IVF that contains calcium. For double lumen central lines, phosp horous may be infused in a separate lumen from TPN. 1 mMol phoshate has 1.47 mE q potassium Infuse over 4 hours Start Date: 03/13/18 Stop Date: 03/13/18 Status: Discontinued potassium phosphate + Sodium Chloride 0.9% IV 250 mL 45 mmol, 15 mL, Route: IVPB, PRN, Dosing Weight 65.006, kg, PRN Abnormal Lab Res ult, Start date: 03/13/18 2:16:00 LARRY OPERATOR, Duration: 30 day, Stop date: 04/12/18 2:1 5:00 LARRY OPERATOR, FOR ICU USE ONLY Notes: (Same as: K Phosphate.)Do not infuse phosphorous concurrently in the same line as TPN or IVF that contains calcium. For double lumen central lines, phosp horous may be infused in a separate lumen from TPN. 1 mMol phoshate has 1.47 mE q potassium Infuse over 4 hours Start Date: 03/13/18 Stop Date: 03/13/18 Status: Discontinued potassium phosphate + Sodium Chloride 0.9% IV 250 mL 15 mmol, 5 mL, Route: IVPB, PRN, Dosing Weight 65.006, kg, PRN Abnormal Lab Resu lt, Start date: 03/13/18 2:16:00 LARRY OPERATOR, Duration: 30 day, Stop date: 04/12/18 2:15 :00 LARRY OPERATOR, FOR ICU USE ONLY Notes: (Same as: K Phosphate.)Do not infuse phosphorous concurrently in the same line as TPN or IVF that contains calcium. For double lumen central lines, phosp horous may be infused in a separate lumen from TPN. 1 mMol phoshate has 1.47 mE q potassium Infuse over 4 hours Start Date: 03/13/18 Stop Date: 03/13/18 Status: Discontinued potassium phosphate-sodium phosphate 250 mg-280 mg-160 mg oral powder for recons titution 2 pkt, Route: PO, Drug Form: PDR/REC, Dosing Weight 65.006, kg, PRN, PRN Abnorma l Lab Result, FOR ICU USE ONLY, Start date: 03/13/18 2:16:00 LARRY OPERATOR, Duration: 30 d ay, Stop date: 04/12/18 2:15:00 LARRY OPERATOR Notes: (Same as: Phos-NaK) Each 1.5 gm pkt has 250mg phosphorous. Mix w/2.5oz w ater and stir. Start Date: 03/13/18 Stop Date: 03/13/18 Status: Discontinued pregabalin 25 mg oral capsule 25 mg=1 cap, PO, Q8H, # 30 cap, 0 Refill(s) Start Date: 03/17/18 Stop Date: 03/27/18 Status: Ordered remove patch 1 patch, Route: TOP, Daily, Drug form: ERFILM, Start date: 03/17/18 6:00:00 LARRY OPERATOR, Duration: 30 day, Stop date: 04/15/18 6:00:00 LARRY OPERATOR Start Date: 03/17/18 Stop Date: 03/17/18 Status: Discontinued Saline Flush 0.9% 10 ml, Route: IVP, Drug Form: INJ, kg, PRN, PRN Line Flush, Start date: 03/12/18 22:08:00 LARRY OPERATOR, Duration: 30 day, Stop date: 04/11/18 22:07:00 LARRY OPERATOR Notes: Same as: BD Posiflush Sterile Start Date: 03/12/18 Stop Date: 03/14/18 Status: Deleted Saline Flush 0.9% 10 ml, Route: IVP, Drug Form: INJ, kg, Q12H, Start date: 03/13/18 9:00:00 LARRY OPERATOR, D uration: 30 day, Stop date: 04/11/18 21:00:00 LARRY OPERATOR Notes: Same as: BD Posiflush Sterile Start Date: 03/13/18 Stop Date: 03/17/18 Status: Discontinued Saline Flush 0.9% 10 mL, Route: IVP, Drug Form: INJ, kg, PRN, PRN Line Flush, Start date: 03/12/18 21:13:00 LARRY OPERATOR, Duration: 30 day, Stop date: 04/11/18 21:12:00 LARRY OPERATOR Start Date: 03/12/18 Stop Date: 03/17/18 Status: Discontinued senna 8.6 mg, 1 tab, Route: PO, Drug Form: TAB, kg, Q12H, Start date: 03/13/18 9:00:00 LARRY OPERATOR, Duration: 30 day, Stop date: 04/11/18 21:00:00 LARRY OPERATOR Notes: (Same as: Senokot) Start Date: 03/13/18 Stop Date: 03/17/18 Status: Discontinued simvastatin 40 mg=1 tab, PO, Bedtime, # 30 tab, 0 Refill(s) Start Date: 03/13/18 Stop Date: 04/12/18 Status: Ordered Sodium Chloride 0.9% IV 1,000 mL 1,000 mL, Rate: 75 ml/hr, Infuse over: 13.3 hr, Route: IV, Dosing Weight 65 kg, Total Volume: 1,000, Start date: 03/12/18 22:08:00 LARRY OPERATOR, Duration: 30 day, Stop d ate: 04/11/18 22:07:00 LARRY OPERATOR Start Date: 03/12/18 Stop Date: 03/13/18 Status: Discontinued sodium phosphate + Sodium Chloride 0.9% IV 250 mL 15 mmol, 5 mL, Route: IVPB, PRN, Dosing Weight 65.006, kg, PRN Abnormal Lab Resu lt, Start date: 03/13/18 2:16:00 LARRY OPERATOR, Duration: 30 day, Stop date: 04/12/18 2:15 :00 LARRY OPERATOR, FOR ICU USE ONLY Notes: Infuse over 4 hour. Do not infuse phosphorous concurrently in the same li ne as TPN or IVF that contains calcium. For double lumen central lines, phosphor ous may be infused in a separate lumen from TPN. Start Date: 03/13/18 Stop Date: 03/13/18 Status: Discontinued sodium phosphate + Sodium Chloride 0.9% IV 250 mL 30 mmol, 10 mL, Route: IVPB, PRN, Dosing Weight 65.006, kg, PRN Abnormal Lab Res ult, Start date: 03/13/18 2:16:00 LARRY OPERATOR, Duration: 30 day, Stop date: 04/12/18 2:1 5:00 LARRY OPERATOR, FOR ICU USE ONLY Notes: Infuse over 4 hour. Do not infuse phosphorous concurrently in the same li ne as TPN or IVF that contains calcium. For double lumen central lines, phosphor ous may be infused in a separate lumen from TPN. Start Date: 03/13/18 Stop Date: 03/13/18 Status: Discontinued sodium phosphate + Sodium Chloride 0.9% IV 250 mL 45 mmol, 15 mL, Route: IVPB, PRN, Dosing Weight 65.006, kg, PRN Abnormal Lab Res ult, Start date: 03/13/18 2:16:00 LARRY OPERATOR, Duration: 30 day, Stop date: 04/12/18 2:1 5:00 LARRY OPERATOR, FOR ICU USE ONLY Notes: Infuse over 4 hour. Do not infuse phosphorous concurrently in the same li ne as TPN or IVF that contains calcium. For double lumen central lines, phosphor ous may be infused in a separate lumen from TPN. Start Date: 03/13/18 Stop Date: 03/13/18 Status: Discontinued Synthroid 125 microgram, 1 tab, Route: PO, Drug form: TAB, Daily, Dosing Weight 65.006, kg , Start date: 03/13/18 9:00:00 LARRY OPERATOR, Duration: 30 day, Stop date: 04/11/18 9:00:0 0 LARRY OPERATOR Notes: Take 1 hour before or 2 hours after meal; Enteral feeds may interefere wi th the absorption of this medication. (Same as:Levothroid) Start Date: 03/13/18 Stop Date: 03/17/18 Status: Discontinued Synthroid 125 mcg (0.125 mg) oral tablet 125 microgram=1 tab, PO, Daily, # 30 tab, 0 Refill(s) Start Date: 03/13/18 Status: Ordered tramadol 50 mg, 1 tab, Route: PO, Drug form: TAB, Q6H, Dosing Weight 65.006, kg, PRN Pain Score 4-6, Start date: 03/13/18 16:24:00 LARRY OPERATOR, Duration: 30 day, Stop date: 03/30 06/15 16:23:00 LARRY OPERATOR Notes: Not to exceed 400mg/day. (Same As: Ultram) Start Date: 03/13/18 Stop Date: 03/17/18 Status: Discontinued tramadol 50 mg oral tablet 50 mg=1 tab, PO, Q6H, PRN Pain Score 4-6, X 5 day, # 30 tab, 0 Refill(s) Start Date: 03/17/18 Stop Date: 03/22/18 Status: Ordered triamterene 37.5 mg, PO, Daily, 0 Refill(s) Start Date: 03/13/18 Stop Date: 03/17/18 Status: Discontinued Tylenol 650 mg, 2 tab, Route: PO, Drug form: TAB, Q6H, kg, PRN Pain 1-3/Temp > 100.4 F, Priority: STAT, Start date: 03/12/18 22:04:00 LARRY OPERATOR, Duration: 30 day, Stop date: 04/11/18 22:03:00 LARRY OPERATOR Notes: Do not exceed 4 gm/day. (Same as: Tylenol) Start Date: 03/12/18 Stop Date: 03/17/18 Status: Discontinued Vitamin D3 oral tablet 400 IntlUnit=1 tab, PO, Daily, # 30 tab, 0 Refill(s) Start Date: 03/13/18 Status: Ordered Zofran 4 mg, 2 mL, Route: IVP, Drug form: INJ, Q6H, Dosing Weight 65.006, kg, PRN Nause a, Start date: 03/14/18 6:20:00 LARRY OPERATOR, Duration: 30 day, Stop date: 04/13/18 6:19: 00 LARRY OPERATOR Notes: (Same as: Zofran) MEDICATION WASTE Product Size: 4 mgProduct Was yaron: ___ mg Start Date: 03/14/18 Stop Date: 03/17/18 Status: Discontinued Results BLOOD BANK RESULTS 1 2 3 Most recent to oldest [Reference Range]: O NEG *Unknown* (03/12/18 9:22 PM) ABO/Rh Negative (03/12/18 9:22 PM) Antibody Scrn Product available (03/12/18 9:27 PM) Platelet product ELECTROLYTES 1 2 3 Most recent to oldest [Reference Range]: 137 mEq/L (03/16/18 3:08 AM) 139 mEq/L (03/15/18 12:30 AM) 139 mEq/L (03/14/18 2:40 AM) Sodium Lvl [135-145 mEq/L] 4.2 mEq/L (03/16/18 3:08 AM) 3.6 mEq/L (03/15/18 12:30 AM) 4.0 mEq/L (03/14/18 2:40 AM) Potassium Lvl [3.5-5.1 mEq/L] 105 mEq/L (03/16/18 3:08 AM) 106 mEq/L (03/15/18 12:30 AM) 108 mEq/L (03/14/18 2:40 AM) Chloride Lvl [95-109 mEq/L] 27 mEq/L (03/16/18 3:08 AM) 24 mEq/L (03/15/18 12:30 AM) 26 mEq/L (03/14/18 2:40 AM) CO2 [24-32 mEq/L] 9.2 mEq/L *LOW* (03/16/18 3:08 AM) 12.6 mEq/L (03/15/18 12:30 AM) 9.0 mEq/L *LOW* (03/14/18 2:40 AM) AGAP [10.0-20.0 mEq/L] CHEM PANEL 1 2 3 Most recent to oldest [Reference Range]: 0.90 mg/dL (03/16/18 3:08 AM) 0.78 mg/dL (03/15/18 12:30 AM) 0.81 mg/dL (03/14/18 2:40 AM) Creatinine Lvl [0.50-1.40 mg/dL] 60 mL/min/1.73m2 1 *NA* (03/16/18 3:08 AM) 71 mL/min/1.73m2 2 *NA* (03/15/18 12:30 AM) 68 mL/min/1.73m2 3 *NA* (03/14/18 2:40 AM) eGFR 22 mg/dL (03/16/18 3:08 AM) 16 mg/dL (03/15/18 12:30 AM) 17 mg/dL (03/14/18 2:40 AM) BUN [7-22 mg/dL] 93 mg/dL (03/16/18 3:08 AM) 86 mg/dL (03/15/18 12:30 AM) 102 mg/dL *HI* (03/14/18 2:40 AM) Glucose Lvl [70-99 mg/dL] 9.5 mg/dL (03/16/18 3:08 AM) 8.9 mg/dL (03/15/18 12:30 AM) 8.8 mg/dL (03/14/18 2:40 AM) Calcium Lvl [8.5-10.5 mg/dL] 3.1 mg/dL (03/14/18 2:40 AM) Phosphorus [2.5-4.5 mg/dL] 2.3 mg/dL (03/14/18 2:40 AM) 2.0 mg/dL (03/13/18 1:41 AM) Magnesium Lvl [1.8-2.4 mg/dL] 0.9 mMol/L (03/12/18 9:14 PM) Lactic Acid Lvl [0.5-2.2 mMol/L] 1Result Comment: The eGFR is calculated using the [...] from the National Kidney Disease Education Program ( NKDEP) which additionally recommends that when the eGFR is used in patients with extremes of body mass index for purposes of drug dosing, the eGFR should be mul tiplied by the estimated BMI. 2Result Comment: The eGFR is calculated using the [...] from the National Kidney Disease Education Program ( NKDEP) which additionally recommends that when the eGFR is used in patients with extremes of body mass index for purposes of drug dosing, the eGFR should be mul tiplied by the estimated BMI. 3Result Comment: The eGFR is calculated using the [...] from the National Kidney Disease Education Program ( NKDEP) which additionally recommends that when the eGFR is used in patients with extremes of body mass index for purposes of drug dosing, the eGFR should be mul tiplied by the estimated BMI. CARDIAC ENZYMES 1 2 3 Most recent to oldest [Reference Range]: <0.02 ng/mL (03/12/18 9:14 PM) Troponin-I [0.00-0.40 ng/mL] PARATHYROID PROFILE 1 2 3 Most recent to oldest [Reference Range]: 1.26 mMol/L *HI* (03/14/18 2:40 AM) 1.23 mMol/L (03/13/18 1:41 AM) Ca Ion WB [1.05-1.25 mMol/L] 1.22 mMol/L (03/14/18 2:40 AM) 1.21 mMol/L (03/13/18 1:41 AM) Ca Norm WB [1.05-1.25 mMol/L] URINE AND STOOL 1 2 3 Most recent to oldest [Reference Range]: Clear (03/14/18 8:16 PM) UA Turbidity [Clear] Yellow *NA* (03/14/18 8:16 PM) UA Color [Yellow] 6.5 (03/14/18 8:16 PM) UA pH [5.0-8.0] 1.014 (03/14/18 8:16 PM) UA Spec Grav [<=1.030] Negative mg/dL *NA* (03/14/18 8:16 PM) UA Glucose [Negative mg/dL] Trace *ABN* (03/14/18 8:16 PM) UA Blood [Negative] 10 mg/dL *ABN* (03/14/18 8:16 PM) UA Ketones [Negative mg/dL] Negative mg/dL (03/14/18 8:16 PM) UA Protein [Negative mg/dL] 2.0 mg/dL *HI* (03/14/18 8:16 PM) UA Urobilinogen [0.1-1.0 mg/dL] Negative *NA* (03/14/18 8:16 PM) UA Bili [Negative] Negative (03/14/18 8:16 PM) UA Leuk Est [Negative] Negative (03/14/18 8:16 PM) UA Nitrite [Negative] 3 /HPF (03/14/18 8:16 PM) UA WBC [0-5 /HPF] 13 /HPF *HI* (03/14/18 8:16 PM) UA RBC [0-2 /HPF] Occasional /HPF *NA* (03/14/18 8:16 PM) UA Bacteria [None Seen /HPF] None Seen *NA* (03/14/18 8:16 PM) UA Sq Epi Occasional /HPF *NA* (03/14/18 8:16 PM) UA Amorph Maisha [None Seen /HPF] RARE *NA* (03/14/18 8:16 PM) UA Renal Epi [<=0] Few /LPF *NA* (03/14/18 8:16 PM) UA Mucus [None Seen /LPF] HEMATOLOGY 1 2 3 Most recent to oldest [Reference Range]: 7.2 K/CMM (03/16/18 3:08 AM) 8.3 K/CMM (03/15/18 12:30 AM) 8.9 K/CMM (03/14/18 2:40 AM) WBC [3.7-10.4 K/CMM] 3.74 M/CMM *LOW* (03/16/18 3:08 AM) 3.54 M/CMM *LOW* (03/15/18 12:30 AM) 3.77 M/CMM *LOW* (03/14/18 2:40 AM) RBC [4.20-5.40 M/CMM] 10.9 g/dL *LOW* (03/16/18 3:08 AM) 10.3 g/dL *LOW* (03/15/18 12:30 AM) 11.0 g/dL *LOW* (03/14/18 2:40 AM) Hgb [12.0-16.0 g/dL] 31.8 % *LOW* (03/16/18 3:08 AM) 30.2 % *LOW* (03/15/18 12:30 AM) 31.9 % *LOW* (03/14/18 2:40 AM) Hct [36.0-48.0 %] 84.9 fL (03/16/18 3:08 AM) 85.3 fL (03/15/18 12:30 AM) 84.6 fL (03/14/18 2:40 AM) MCV [80.0-98.0 fL] 29.2 pg (03/16/18 3:08 AM) 29.1 pg (03/15/18 12:30 AM) 29.0 pg (03/14/18 2:40 AM) MCH [27.0-31.0 pg] 34.4 g/dL (03/16/18 3:08 AM) 34.1 g/dL (03/15/18 12:30 AM) 34.3 g/dL (03/14/18 2:40 AM) MCHC [32.0-36.0 g/dL] 15.1 % *HI* (03/16/18 3:08 AM) 15.2 % *HI* (03/15/18 12:30 AM) 15.0 % *HI* (03/14/18 2:40 AM) RDW [11.5-14.5 %] 10.2 fL (03/16/18 3:08 AM) 10.7 fL *HI* (03/15/18 12:30 AM) 9.9 fL (03/14/18 2:40 AM) MPV [7.4-10.4 fL] 208 K/CMM (03/16/18 3:08 AM) 216 K/CMM (03/15/18 12:30 AM) 220 K/CMM (03/14/18 2:40 AM) Platelet [133-450 K/CMM] 55.4 % (03/16/18 3:08 AM) 62.9 % (03/15/18 12:30 AM) 72.7 % (03/14/18 2:40 AM) Segs [45.0-75.0 %] 27.6 % (03/16/18 3:08 AM) 22.6 % (03/15/18 12:30 AM) 13.5 % *LOW* (03/14/18 2:40 AM) Lymphocytes [20.0-40.0 %] 12.3 % *HI* (03/16/18 3:08 AM) 13.3 % *HI* (03/15/18 12:30 AM) 10.5 % (03/14/18 2:40 AM) Monocytes [2.0-12.0 %] 4.3 % *HI* (03/16/18 3:08 AM) 0.9 % (03/15/18 12:30 AM) 2.9 % (03/14/18 2:40 AM) Eosinophils [0.0-4.0 %] 0.4 % (03/16/18 3:08 AM) 0.3 % (03/15/18 12:30 AM) 0.4 % (03/14/18 2:40 AM) Basophils [0.0-1.0 %] 4.0 K/CMM (03/16/18 3:08 AM) 5.2 K/CMM (03/15/18 12:30 AM) 6.5 K/CMM (03/14/18 2:40 AM) Neutrophils # [1.5-8.1 K/CMM] 2.0 K/CMM (03/16/18 3:08 AM) 1.9 K/CMM (03/15/18 12:30 AM) 1.2 K/CMM (03/14/18 2:40 AM) Lymphocytes # [1.0-5.5 K/CMM] 0.9 K/CMM *HI* (03/16/18 3:08 AM) 1.1 K/CMM *HI* (03/15/18 12:30 AM) 0.9 K/CMM *HI* (03/14/18 2:40 AM) Monocytes # [0.0-0.8 K/CMM] 0.3 K/CMM (03/16/18 3:08 AM) 0.1 K/CMM (03/15/18 12:30 AM) 0.3 K/CMM (03/14/18 2:40 AM) Eosinophils # [0.0-0.5 K/CMM] 13.5 seconds (03/12/18 9:14 PM) PT [12.0-14.7 seconds] 1.05 (03/12/18 9:14 PM) INR [0.85-1.17] 33.9 seconds (03/12/18 9:14 PM) PTT [22.9-35.8 seconds] 105 seconds (03/12/18 9:14 PM) ACT (TEG) Rapid [86-118 seconds] 0.5 minutes *NA* (03/12/18 9:14 PM) Split Point Rapid 0.6 minutes (03/12/18 9:14 PM) R-time Rapid [0.4-0.7 minutes] 0.8 minutes (03/12/18 9:14 PM) K-time Rapid [0.6-2.3 minutes] 81 degrees *HI* (03/12/18 9:14 PM) Angle Rapid [64-80 degrees] 74 mm *HI* (03/12/18 9:14 PM) Max Amplitude Rapid [52-71 mm] 14.2 K d/sc *HI* (03/12/18 9:14 PM) G-value Rapid [5.0-11.6 K d/sc] 0.0 % (03/12/18 9:14 PM) Estimated % Lysis Rapid [0.0-7.5 %] 534 ARU *NA* (03/12/18 10:38 PM) ASA Effect Plt BACTERIAL - SEROLOGY 1 2 3 Most recent to oldest [Reference Range]: Negative (03/13/18 1:41 AM) MRSA by PCR Immunizations No data available for this section [...]
--- OUTSIDE RECORDS SUMMARY | 2018-08-16 14:13 | XMS REPORT | Summary of Care ---
Author Author [facility] Organization [facility] Address Unknown Phone Unavailable Encounter HQ Dimitrios(JAMIN) [id number] Date(s): 03/30/18 - 03/30/18 [facility] [address] [place] [address]- Discharge Disposition: Home or Self Care Attending [...]
--- OUTSIDE RECORDS SUMMARY | 2018-08-16 14:13 | XMS REPORT | Summary of Care ---
Author Author [facility] Organization [facility] Neurosurgery [facility] Address Unknown Phone Unavailable Encounter HQ Encntr_alidwain(FIN) [id number] Date(s): 03/26/18 - 03/27/18 [facility] Neurosurgery [facility] [address], [address] [place], [place] [address] [phone] Vital Signs [...]
--- OUTSIDE RECORDS SUMMARY | 2018-08-16 14:13 | XMS REPORT | Summary of Care ---
Author Author [facility]SH[facility] Neurosurgery [facility] Organization [facility] Neurosurgery [facility] Address Unknown Phone Unavailable Encounter HQ Encntr_alidwain(FIN) [id number] Date(s): 04/02/18 - 04/03/18 [facility] Neurosurgery [facility] [address], [address] [place], [place] [address] [phone] Vital Signs [...]
--- OUTSIDE RECORDS SUMMARY | 2018-08-16 14:13 | XMS REPORT | Summary of Care ---
Author Author [facility] Neurosurgery [facility] Organization [facility] Neurosurgery [facility] Address Unknown Phone Unavailable Encounter HQ Lisa_di(FIN) [id number] Date(s): 05/30/18 - 05/31/18 [facility] Neurosurgery [facility] [address] [place] [address]- Vital Signs No data available for this [...]
--- OUTSIDE RECORDS SUMMARY | 2018-08-16 14:13 | XMS REPORT | Summary of Care ---
Author Author [facility]SH[facility] Neurosurgery [facility] Organization [facility] Neurosurgery [facility] Address Unknown Phone Unavailable Encounter HQ Encntr_alidwain(FIN) [id number] Date(s): 04/02/18 - 04/03/18 [facility] Neurosurgery [facility] [address], [address] [place], [place] [address] [phone] Vital [...]
--- OUTSIDE RECORDS SUMMARY | 2018-08-16 14:13 | XMS REPORT | Summary of Care ---
Author Author [facility] Organization [facility] Address Unknown Phone Unavailable Encounter HQ Dimitrios(FIN) [id number] Date(s): 05/29/18 - 05/29/18 [facility] [address] [place] [address]- Discharge Disposition: Home or Self Care Attending [...]
[2018-08-16] MEDS ORDERED: PROZAC20 MG PO (14:20)
[2018-08-16] MEDS ORDERED: WELLBUTRIN SR150 MG PO (14:20)
[2018-08-16 14:34] VITALS: BP 141/75
[2018-08-16 14:38] VITALS: BP 141/75
[2018-08-16 15:50] VITALS: BP 132/69
[2018-08-16 16:21] LABS: BASOPHILS # (AUTO) 0.1 (0.0-0.1); BASOPHILS % 0.7 % (0.0-1.0); EOSINOPHILS # (AUTO) 0.2 (0.0-0.4); EOSINOPHILS % 2.3 % (0.0-6.0); HEMOGLOBIN 12.2 g/dL (12.0-16.0); LYMPHOCYTES % 23.7 % (18.0-39.1); MEAN CORPUSCULAR HEMOGLOBIN 28.2 pg (28-32); MEAN CORPUSCULAR VOLUME 85.6 fL (81-99); MONOCYTES # (AUTO) 0.8 (0.2-0.8); NEUTROPHILS # (AUTO) 5.3 (2.1-6.9); NEUTROPHILS % 63.1 % (38.7-80.0); PLATELET COUNT 329 x10e3/uL (140-360); RED BLOOD COUNT 4.32 x10e6/uL (3.6-5.1); RED CELL DISTRIBUTION WIDTH 15.1 % (11.7-14.4)
[2018-08-16 16:49] LABS: ALANINE AMINOTRANSFERASE 20 IU/L (0-55); ALBUMIN/GLOBULIN RATIO 0.9 (0.8-2.0); ALKALINE PHOSPHATASE 106 IU/L (40-150); ANION GAP 10.4 mmol/L (8-16); BLOOD UREA NITROGEN 19 mg/dL (7-26); BUN/CREATININE RATIO 23 (6-25); CALCIUM 9.7 mg/dL (8.4-10.2); CARBON DIOXIDE 26 mmol/L (22-29); CHLORIDE 101 mmol/L (98-107); CREATININE, SERUM 0.83 mg/dL (0.57-1.11); EST GLOMERULAR FILTRATION RATE > 60 ML/MIN (60-); GLUCOSE 98 mg/dL (74-118); POTASSIUM 3.4 mmol/L (3.5-5.1); SODIUM 134 mmol/L (136-145)
[2018-08-16] MEDS: FAMOTIDINE 20 MG TAB PO SCH (18:04)
[2018-08-16] MEDS: ENOXAPARIN SOD INJ 40 MG/0.4 ML SYR SC SCH (18:04)
[2018-08-16] MEDS: HYDROCODONE/APAP 7.5MG-325MG 1 EA TAB PO PRN (18:58)
[2018-08-16 20:00] VITALS: BP 99/58
[2018-08-16 21:20] VITALS: BP 99/58
[2018-08-16] MEDS: MELATONIN 3 MG TAB PO PRN (21:20)
[2018-08-16] MEDS: HYDROXYZINE HCL 25 MG TAB PO PRN (21:20)
[2018-08-16] MEDS ORDERED: HYDRALAZINE HCL 20 MG/ML VIAL IV PRN (21:45)
[2018-08-16] MEDS ORDERED: ONDANSETRON HCL INJ 2MG/ML 2ML 2 MG/ML VIAL IV PRN (21:45)
[2018-08-17] VITALS (8 sets, daily range): BP systolic 106–129; BP diastolic 60–68
--- NOTE | 2018-08-17 03:30 | NUR ---
BLOOD DRAWN FOR LAB,PT TOLERATED WELL.NO S/S OF DISTRESS NOTED.RESPIRATIONS EVEN/NON LABORED.PT DENIES PAIN CURRENTLY.CALL LIGHT WITHIN EASY REACH.
[2018-08-17 03:39] LABS: BASOPHILS # (AUTO) 0.1 (0.0-0.1); BASOPHILS % 0.6 % (0.0-1.0); EOSINOPHILS # (AUTO) 0.3 (0.0-0.4); EOSINOPHILS % 3.4 % (0.0-6.0); LYMPHOCYTES # (AUTO) 1.9 (1.0-3.2); LYMPHOCYTES % 22.4 % (18.0-39.1); MEAN CORPUSCULAR HEMOGLOBIN 28.1 pg (28-32); MEAN CORPUSCULAR HGB CONC 33.3 g/dL (31-35); MEAN CORPUSCULAR VOLUME 84.3 fL (81-99); MONOCYTES # (AUTO) 0.8 (0.2-0.8); MONOCYTES % 9.9 % (4.4-11.3); NEUTROPHILS # (AUTO) 5.1 (2.1-6.9); NEUTROPHILS % 62.2 % (38.7-80.0); PLATELET COUNT 314 x10e3/uL (140-360); RED BLOOD COUNT 4.27 x10e6/uL (3.6-5.1); RED CELL DISTRIBUTION WIDTH 15.2 % (11.7-14.4)
[2018-08-17 03:57] LABS: ALANINE AMINOTRANSFERASE 16 IU/L (0-55); ALBUMIN/GLOBULIN RATIO 0.9 (0.8-2.0); ALKALINE PHOSPHATASE 106 IU/L (40-150); ANION GAP 11.9 mmol/L (8-16); BLOOD UREA NITROGEN 21 mg/dL (7-26); BUN/CREATININE RATIO 25 (6-25); CALCIUM 9.7 mg/dL (8.4-10.2); CARBON DIOXIDE 23 mmol/L (22-29); CHLORIDE 100 mmol/L (98-107); CREATININE, SERUM 0.85 mg/dL (0.57-1.11); EST GLOMERULAR FILTRATION RATE > 60 ML/MIN (60-); GLUCOSE 105 mg/dL (74-118); POTASSIUM 3.9 mmol/L (3.5-5.1); SODIUM 131 mmol/L (136-145)
[2018-08-17] MEDS: LEVOTHYROXINE SODIUM 100 MCG TAB PO SCH (05:41)
[2018-08-17] MEDS: LEVOTHYROXINE SODIUM 75 MCG TAB PO SCH (05:41)
--- NOTE | 2018-08-17 07:10 | NUR ---
The pt. is in bed and reports pain in the elbow during bedside rounding. The off-going nurse povided the pt. with pain med.
[2018-08-17] MEDS: HYDROCODONE/APAP 7.5MG-325MG 1 EA TAB PO PRN ×2 (07:14→11:46)
--- NOTE | 2018-08-17 07:17 | NUR ---
REPORT GIVEN TO ONCOMING NURSE,WALKING ROUNDS DONE.PT RESTING IN BED WITH NO S/S OF DISTRESS
[2018-08-17] MEDS: FAMOTIDINE 20 MG TAB PO SCH ×2 (07:30→17:11)
--- NOTE | 2018-08-17 07:45 | Diagnostic Imaging Report ---
Exam: AP pelvis and coned-down views of the right hip. History: Status post fall Comparison: 08/06/2018 CT of the pelvis Findings: Bones are osteopenic. Joint space narrowing of the right hip and left hip is noted. Right femoral neck is foreshortened suggesting a subcapital impaction fracture. In addition there is an irregularity of the greater trochanter suggesting a fracture. CT scan of the right hip is recommended for further evaluation. Impression: 1. Diffuse bony osteopenia. 2. Possible right subcapital and greater trochanteric fracture. Signed by: Dr. Jaydon Arias DO on 08/17/2018 7:41 AM
[2018-08-17] MEDS ORDERED: ONDANSETRON HCL 4 MG ORAL DISINTEGRATING TAB PO PRN (08:30)
[2018-08-17] MEDS: BUPROPION HCL 150 MG TABCR PO SCH (09:35)
[2018-08-17] MEDS: DOCUSATE SODIUM 100 MG CAP PO SCH ×2 (09:35→17:11)
[2018-08-17] MEDS: FLUOXETINE HCL 20 MG CAP PO SCH (09:35)
[2018-08-17] MEDS: HYDROXYZINE HCL 25 MG TAB PO PRN ×2 (10:28→20:08)
--- NOTE | 2018-08-17 10:52 | NUR ---
IMM EXPLAINED TO PT, SIGNED BY PT'S DTR AMY AT PT'S REQUEST AND PLACED IN CHART COPY TO PT IN CARE TRANSITIONS FOLDER
--- NOTE | 2018-08-17 15:02 | Diagnostic Imaging Report ---
TECHNIQUE: Computed tomography imaging of the RIGHT HIP was performed WITHOUT injected contrast. Dose modulation, iterative reconstruction, and/or weight based adjustment of the mA/kV was utilized to reduce the radiation dose to as low as reasonably achievable. HISTORY: 08/16/2018 COMPARISON: None available. FINDINGS: Nondisplaced fracture of the right greater trochanter. Sclerosis of the sacrum, which is partially visualized secondary to prior insufficiency fracture. Right hip degenerative arthrosis with chondrocalcinosis. Soft tissues are otherwise unremarkable. IMPRESSION: Nondisplaced fracture of the right greater trochanter. Sclerosis in the partially visualized sacrum secondary to prior insufficiency fracture. Signed by: Dr. Ceasar Antonio M.D. on 08/17/2018 2:59 PM
[2018-08-17] MEDS: ENOXAPARIN SOD INJ 40 MG/0.4 ML SYR SC SCH (17:11)
--- NOTE | 2018-08-17 18:59 | NUR ---
WALKING ROUNDS PERFORMED, RECEIVED PT LAYING SEMI FOWLERS IN BED, AAOX3, RR EVEN AND NON-LABORED, ON RA. PT REPORTS PAIN TO (R) HIP. PT DAUGHTER REPORTS SHE WOULD LIKE TO TRY A LESS INTENSE PAIN MEDICATION BECAUSE THE NORCO WAS MAKING HER MOTHER CONFUSED. REQUESTING TYLENOL. LEFT PT LAYING SEMI FOWLERS IN BED, BED IN LOW LOCKED POSITION, SIDE RAILS UPX2, CALL LIGHT AND PHONE WITHIN REACH. FAMILY AT BEDSIDE. BED ALARM ACTIVATED ZONE 1.
[2018-08-17] MEDS: ACETAMINOPHEN 325 MG TAB PO PRN (20:08)
[2018-08-17] MEDS: MELATONIN 3 MG TAB PO PRN (20:08)
[2018-08-17] MEDS: SIMVASTATIN 40 MG TAB PO SCH (20:08)
[2018-08-17] MEDS: TRAMADOL HCL 50 MG TAB PO PRN (21:37)
[2018-08-18] VITALS (8 sets, daily range): BP systolic 116–136; BP diastolic 59–70
[2018-08-18 03:27] LABS: BASOPHILS # (AUTO) 0.1 (0.0-0.1); BASOPHILS % 0.9 % (0.0-1.0); EOSINOPHILS # (AUTO) 0.3 (0.0-0.4); EOSINOPHILS % 3.3 % (0.0-6.0); HEMATOCRIT 34.8 % (34.2-44.1); HEMOGLOBIN 11.1 g/dL (12.0-16.0); LYMPHOCYTES # (AUTO) 2.2 (1.0-3.2); LYMPHOCYTES % 27.4 % (18.0-39.1); MEAN CORPUSCULAR HEMOGLOBIN 27.6 pg (28-32); MEAN CORPUSCULAR HGB CONC 31.9 g/dL (31-35); MEAN CORPUSCULAR VOLUME 86.6 fL (81-99); MONOCYTES # (AUTO) 0.8 (0.2-0.8); MONOCYTES % 10.5 % (4.4-11.3); NEUTROPHILS # (AUTO) 4.5 (2.1-6.9); NEUTROPHILS % 56.5 % (38.7-80.0); PLATELET COUNT 291 x10e3/uL (140-360); RED BLOOD COUNT 4.02 x10e6/uL (3.6-5.1); RED CELL DISTRIBUTION WIDTH 15.2 % (11.7-14.4)
[2018-08-18 03:48] LABS: ANION GAP 11.7 mmol/L (8-16); CALCIUM 9.5 mg/dL (8.4-10.2); CREATININE, SERUM 0.92 mg/dL (0.57-1.11); POTASSIUM 3.7 mmol/L (3.5-5.1)
[2018-08-18 04:11] LABS: FREE T4 (FREE THYROXINE) 0.71 ng/dL (0.8-1.8); THYROID STIMULATING HORMONE 26.022 uIU/mL (0.350-4.940)
[2018-08-18] MEDS: LEVOTHYROXINE SODIUM 75 MCG TAB PO SCH (05:30)
[2018-08-18] MEDS: LEVOTHYROXINE SODIUM 100 MCG TAB PO SCH ×2 (05:30→06:00)
[2018-08-18] MEDS ORDERED: BISACODYL 5 MG TAB EC PO PRN (06:00)
[2018-08-18] MEDS: TRAMADOL HCL 50 MG TAB PO PRN (06:28)
[2018-08-18] MEDS ORDERED: LEVOTHYROXINE SODIUM 25 MCG TABLET PO ONE (06:45)
--- NOTE | 2018-08-18 07:16 | NUR ---
pt asleep resp even and unlabored no distress noted pt arouse to name, pt has splint to right arm, call light in reach. will cont to monitor.
[2018-08-18] MEDS: FLUOXETINE HCL 20 MG CAP PO SCH (09:46)
[2018-08-18] MEDS: BUPROPION HCL 150 MG TABCR PO SCH (09:49)
[2018-08-18] MEDS: FAMOTIDINE 20 MG TAB PO SCH ×2 (09:49→16:30)
[2018-08-18] MEDS: POLYETHYLENE GLYCOL 3350 17 GM PACK PO SCH (09:49)
[2018-08-18] MEDS: DOCUSATE SODIUM 100 MG CAP PO SCH ×2 (09:49→16:44)
--- NOTE | 2018-08-18 13:00 | NUR ---
pt up to bedside with PT, tolerated well , family member at bedside.
[2018-08-18] MEDS: ACETAMINOPHEN 325 MG TAB PO PRN (16:30)
[2018-08-18] MEDS: ENOXAPARIN SOD INJ 40 MG/0.4 ML SYR SC SCH (16:44)
--- NOTE | 2018-08-18 19:24 | NUR ---
WALKING ROUNDS PERFORMED, RECEIVED PT LAYING SEMI FOWLERS IN BED, AAOX3, RR EVEN AND NON-LABORED, ON ROOM AIR. NO S/SX OF DISTRESS NOTED. (R) ARM IN AN IMMOBILIZER WRAP. LEFT PT LAYING SEMI FOWLERS IN BED, BED IN LOW LOCKED POSITION, SIDE RAILS UPX2, CALL LIGHT AND PHONE WITHIN REACH.
--- NOTE | 2018-08-18 19:45 | NUR ---
pt stable report given to oncoming nurse, for continued care.
[2018-08-18] MEDS: MELATONIN 3 MG TAB PO PRN (21:21)
[2018-08-18] MEDS: HYDROXYZINE HCL 25 MG TAB PO PRN (21:21)
[2018-08-18] MEDS: SIMVASTATIN 40 MG TAB PO SCH (21:21)
[2018-08-19] VITALS (7 sets, daily range): BP systolic 105–138; BP diastolic 64–90
[2018-08-19] MEDS: TRAMADOL HCL 50 MG TAB PO PRN ×4 (02:30→21:59)
[2018-08-19] MEDS: HYDROXYZINE HCL 25 MG TAB PO PRN ×3 (06:13→21:59)
[2018-08-19] MEDS: LEVOTHYROXINE SODIUM 100 MCG TAB PO SCH (06:13)
--- NOTE | 2018-08-19 07:20 | NUR ---
pt asleep resp even and unlabored at his time no distress noted, pt easily aroused, no c/o pain when asked, call light in reach.
[2018-08-19] MEDS: BUPROPION HCL 150 MG TABCR PO SCH (09:21)
[2018-08-19] MEDS: DOCUSATE SODIUM 100 MG CAP PO SCH ×2 (09:22→17:10)
[2018-08-19] MEDS: FAMOTIDINE 20 MG TAB PO SCH ×2 (09:22→17:10)
[2018-08-19] MEDS: FLUOXETINE HCL 20 MG CAP PO SCH (09:22)
[2018-08-19] MEDS: POLYETHYLENE GLYCOL 3350 17 GM PACK PO SCH (09:22)
--- NOTE | 2018-08-19 09:46 | Consultation ---
DATE OF CONSULTATION: 08/16/2018 CHIEF COMPLAINT: Right elbow pain and right hip pain. HISTORY OF PRESENT ILLNESS: This patient is a pleasant 82-year-old female, who suffered a fall on 08/06/2018. She states she fell in her mother's home. She states she was unable to stand up and bear weight on the right extremity. She was brought in to the ER and had x-rays. She was originally noticed and noted to have a right olecranon fracture. At that time, there was no evidence of a right hip fracture. She presented in my office on 08/08/2018 for the right hip pain and right elbow pain. We reviewed x-rays and a CT scan of her right hip. There was no evidence of a fracture. Given her level of pain, we decided to send her for a whole-body scan. We also discussed the tentative plan of open reduction and internal fixation of the right olecranon. The patient's daughter contacted me yesterday stating the patient had severe difficulty getting out of bed and bearing any weight on the right leg. Review of the bone scan suggested a fracture of the right trochanteric region. Her daughter decided to bring her back to the ER given her level of discomfort. She was admitted for pain control and further evaluation. The patient states she continues to have right hip pain and difficulty bearing weight on the right lower extremity. She has continued to wear her posterior splint on the right arm. PAST MEDICAL HISTORY: Hypercholesteremia. SOCIAL HISTORY: The patient denies smoking or drinking. ALLERGIES: MEPERIDINE. PHYSICAL EXAMINATION: In general, this is a pleasant elderly female, who is in no apparent distress. She is awake, alert, and oriented appropriately. Her right upper extremity is in a posterior splint, do not remove this. She is able to wiggle the digits. She has good right hand sensate, capillary refill is brisk. Gross inspection of her right lower extremity shows it to be neutrally rotated. She has tenderness to palpation over the trochanteric prominence. She has painful passive range of motion of the right hip. Limb lengths were equal. Distal motor and sensory exams in the right lower extremity are intact. IMAGING: X-rays of the right elbow reviewed from the previous visit show a markedly displaced comminuted right olecranon fracture. Previous x-rays and CT scan of the right hip were again reviewed. These show a subtle evidence of a right greater trochanter fracture. The bone scan shows increased uptake in the trochanteric region. There is also increased uptake in both sacral ala and the right olecranon. ASSESSMENT AND PLAN: This is an 82-year-old female with a right olecranon fracture and a probable right greater trochanter fracture. The findings and options were discussed with the patient and the daughter. We will continue to plan on open reduction and internal fixation of the right olecranon given her level of discomfort and difficulty ambulating. I explained my concerns that the fracture in the right greater trochanter may extend into the rest of the femur. I will order a repeat CT scan to rule out intertrochanteric fracture. She can weight bear as tolerated with a walker. The risks and benefits of the surgery were reviewed. The recovery was discussed the difficulty and mobilizing with physical therapy given both her right upper extremity fracture and right greater trochanteric fracture were discussed. She also has a possible bilateral sacral ala fracture, which we will also make mobilizing her difficult. All this was discussed with the patient and the daughter and they state they understand. She will likely need SNF after her surgery. We will plan on open reduction and internal fixation of the right olecranon early next week on her surgical schedule. Thank you for the consultation. Dictated by Jean Sage PA-C MD MARÍA ELENA Reyez/JOSE JUAN /[id number]
[2018-08-19] MEDS: ENOXAPARIN SOD INJ 40 MG/0.4 ML SYR SC SCH (17:10)
[2018-08-19] MEDS ORDERED: SIMETHICONE 80 MG CHEW PO PRN (18:30)
--- NOTE | 2018-08-19 18:56 | NUR ---
WALKING ROUNDS PERFORMED, RECEIVED PT LAYING SEMI FOWLERS IN BED, AAOX3, RR EVEN AND NON-LABORED, ON ROOM AIR. NO S/SX OF DISTRESS NOTED. LEFT PT LAYING SEMI FOWLERS IN BED, BED IN LOW LOCKED POSITION, SIDE RAILS UPX2, CALL LIGHT AND PHONE WITHIN REACH.
--- NOTE | 2018-08-19 19:25 | NUR ---
report given to oncoming nurse. pt stable.
[2018-08-19] MEDS: MELATONIN 3 MG TAB PO PRN (21:59)
[2018-08-19] MEDS: SIMVASTATIN 40 MG TAB PO SCH (21:59)
[2018-08-20] VITALS (8 sets, daily range): BP systolic 102–133; BP diastolic 57–74
[2018-08-20] MEDS: LEVOTHYROXINE SODIUM 100 MCG TAB PO SCH (02:46)
[2018-08-20 03:19] LABS: BASOPHILS # (AUTO) 0.1 (0.0-0.1); BASOPHILS % 0.5 % (0.0-1.0); EOSINOPHILS # (AUTO) 0.2 (0.0-0.4); HEMATOCRIT 37.2 % (34.2-44.1); HEMOGLOBIN 12.3 g/dL (12.0-16.0); LYMPHOCYTES # (AUTO) 2.1 (1.0-3.2); LYMPHOCYTES % 20.5 % (18.0-39.1); MEAN CORPUSCULAR HEMOGLOBIN 27.8 pg (28-32); MEAN CORPUSCULAR HGB CONC 33.1 g/dL (31-35); MEAN CORPUSCULAR VOLUME 84.2 fL (81-99); MONOCYTES % 9.8 % (4.4-11.3); NEUTROPHILS # (AUTO) 6.7 (2.1-6.9); NEUTROPHILS % 66.2 % (38.7-80.0); PLATELET COUNT 309 x10e3/uL (140-360); RED BLOOD COUNT 4.42 x10e6/uL (3.6-5.1); RED CELL DISTRIBUTION WIDTH 14.9 % (11.7-14.4)
[2018-08-20 03:32] LABS: ANION GAP 11.9 mmol/L (8-16); BLOOD UREA NITROGEN 17 mg/dL (7-26); BUN/CREATININE RATIO 21 (6-25); CALCIUM 9.9 mg/dL (8.4-10.2); CARBON DIOXIDE 24 mmol/L (22-29); CHLORIDE 103 mmol/L (98-107); CREATININE, SERUM 0.81 mg/dL (0.57-1.11); EST GLOMERULAR FILTRATION RATE > 60 ML/MIN (60-); GLUCOSE 106 mg/dL (74-118); POTASSIUM 3.9 mmol/L (3.5-5.1); SODIUM 135 mmol/L (136-145)
--- NOTE | 2018-08-20 07:29 | NUR ---
RECEIVED PATIENT AWAKE RESTING IN BED NO SIGNS OF DISTRESS. BED LOW, WHEELS LOCKED, SIDE RAILS X2. CALL LIGHT IN REACH WILL CONTINUE TO MONITOR PATIENT.
[2018-08-20] MEDS: FAMOTIDINE 20 MG TAB PO SCH ×2 (07:30→16:14)
[2018-08-20] MEDS: FLUOXETINE HCL 20 MG CAP PO SCH (07:42)
[2018-08-20] MEDS: BUPROPION HCL 150 MG TABCR PO SCH (07:42)
[2018-08-20] MEDS: DOCUSATE SODIUM 100 MG CAP PO SCH ×2 (07:42→16:14)
[2018-08-20] MEDS: POLYETHYLENE GLYCOL 3350 17 GM PACK PO SCH (07:42)
[2018-08-20] MEDS ORDERED: CEFAZOLIN SOD 1 GM/NS 50ML 50 ML IV ONE (08:15)
[2018-08-20] MEDS ORDERED: BISACODYL 5 MG TAB EC PO ONE (09:30)
--- NOTE | 2018-08-20 09:30 | NUR ---
Patient was in bed and Daughter was present. Daughter said, "patient is out of it". Daughter cancelled secondary to patient confusion. Kimberley Rojas AUCTION ASSISTANT/Supervised by Beverly Rodriguez, PT Addendum: 08/20/18 at 7724 by Kimberley Rojas AUCTION ASSISTANT Amended: Links added.
[2018-08-20] MEDS ORDERED: BUPIVACAINE HCL 0.5% INJ 30 ML VIAL INJ ONE (09:31)
[2018-08-20] MEDS ORDERED: MUPIROCIN 2% OINT 22 GM TUBE ONE (09:31)
--- NOTE | 2018-08-20 09:40 | NUR ---
PATIENT OFF UNIT TO OR AT THIS TIME.
[2018-08-20] MEDS ORDERED: DOCUSATE SODIUM 100 MG CAP PO PRN (11:30)
[2018-08-20] MEDS ORDERED: HYDROCODONE/APAP 7.5MG-325MG 1 EA TAB PO PRN (11:30)
[2018-08-20] MEDS ORDERED: ACETAMINOPHEN 650 MG SUPP PR PRN (11:30)
[2018-08-20] MEDS ORDERED: HYDROCODONE/APAP 5MG-325MG TAB PO PRN (11:30)
[2018-08-20] MEDS ORDERED: DIPHENHYDRAMINE HCL INJ 50 MG/ML VIAL IM/IV PRN (11:30)
[2018-08-20] MEDS ORDERED: ONDANSETRON HCL INJ 2MG/ML 2ML 2 MG/ML VIAL IV PRN (11:30)
[2018-08-20] MEDS ORDERED: PROMETHAZINE HCL (IM) 25 MG/ML VIAL INJ PRN (11:30)
[2018-08-20] MEDS ORDERED: FENTANYL CITRATE/PF 100MCG/2 ML INJ ONE ×2 (11:58→19:53)
--- NOTE | 2018-08-20 12:36 | NUR ---
PATIENT BACK FROM SURGERY AT THIS TIME. VS STABLE CALL LIGHT IN REACH. WILL CONTINUE TO MONITOR PATIENT.
[2018-08-20] MEDS: SODIUM CHLORIDE 0.9% 1000ML 1,000 ML IV SCH ×2 (12:56→23:51)
[2018-08-20] MEDS: ACETAMINOPHEN 1000 MG/100 ML IV SCH ×3 (12:56→23:51)
[2018-08-20] MEDS: CEFAZOLIN SOD 1 GM/NS 50ML 50 ML IV SCH ×2 (14:07→22:14)
[2018-08-20] MEDS: TRAMADOL HCL 50 MG TAB PO PRN (14:24)
[2018-08-20] MEDS: CELECOXIB 100 MG CAP PO SCH (16:14)
[2018-08-20] MEDS: ENOXAPARIN SOD INJ 40 MG/0.4 ML SYR SC SCH (16:14)
[2018-08-20] MEDS: ASPIRIN 325 MG TAB PO SCH (16:14)
--- NOTE | 2018-08-20 17:02 | Operative Report ---
DATE OF PROCEDURE: 08/20/2018 SURGEON: Chandrakant Dai MD ROBOTIC MACHINE OPERATOR: Jean Sage PA-C PREOPERATIVE DIAGNOSIS: Displaced comminuted right olecranon process fracture. POSTOPERATIVE DIAGNOSIS: Displaced comminuted right olecranon process fracture. PROCEDURE: Open reduction and internal fixation of right displaced comminuted olecranon process fracture. INDICATIONS: The patient is an 82-year-old lady, who had a fall. She sustained a fracture of her right elbow and a chip fracture of her right greater trochanter and sacral ala. We have discussed the findings and options. We have allowed time for the soft tissue and to improve around the elbow. We plan on open reduction with internal fixation. The risks and benefits have been discussed. Both she and her family state they understand and wished to proceed. PROCEDURE IN DETAIL: The patient was brought to the operating room and placed under general anesthetic. She received prophylactic antibiotics in the holding area. She was positioned in the left lateral decubitus position. Her right upper extremity was prepped and draped in a sterile manner. A preoperative time-out was performed. The extremity was exsanguinated and a proximal tourniquet was inflated to 250 mmHg. An incision was made over the posterior aspect of the right elbow. The fracture site was easily exposed. This was gently debrided. There was pronounced comminution. A [employer] precontoured right olecranon process fracture plate was sized and placed onto the back of the ulna. With the fracture reduced, the plate was fixed into place using a combination of compression and locking screws. Intraoperative x-rays confirmed an acceptable reduction and positioning of the hardware. The wounds were irrigated. 10 mL of 0.5% Marcaine without epinephrine was injected around the incision. The wound was thoroughly irrigated. The subcutaneous tissue was reapproximated with subcuticular Vicryl. The skin was closed with nylon stitches. A sterile bandage and a posterior splint were applied. Estimated blood loss was less than 5 mL. All needle and sponge counts were correct. Chandrakant Dai MD DR/JOSE JUAN /[id number]
[2018-08-20] MEDS ORDERED: PROPOFOL IV EMULSION 10 MG/ML 20 ML VIAL ONE (18:01)
[2018-08-20] MEDS ORDERED: SEVOFLURANE INHAL SOLN 250 ML PEN BTL ONE (18:01)
[2018-08-20] MEDS ORDERED: DEXAMETHASONE SOD PHOS INJ 4 MG/ML VIAL ONE (18:01)
[2018-08-20] MEDS ORDERED: CEFAZOLIN SOD 1 GM VIAL ONE (18:01)
[2018-08-20] MEDS ORDERED: KETOROLAC TROMETHAMINE 30 MG/ML VIAL ONE (18:01)
[2018-08-20] MEDS ORDERED: LIDOCAINE HCL 2% LOCAL INJ 5 ML SDV VIAL INJ ONE (18:01)
[2018-08-20] MEDS ORDERED: ONDANSETRON HCL INJ 2MG/ML 2ML 2 MG/ML VIAL ONE (18:01)
[2018-08-20] MEDS ORDERED: PHENYLEPHRINE HCL 1% 10 MG/ML VIAL ONE (18:01)
[2018-08-20] MEDS: KETOROLAC TROMETHAMINE 30 MG/ML VIAL IV PRN (19:18)
[2018-08-20] MEDS: SIMVASTATIN 40 MG TAB PO SCH (20:53)
[2018-08-20] MEDS: ZOLPIDEM TARTRATE 5 MG TAB PO PRN (20:53)
--- NOTE | 2018-08-20 23:50 | NUR ---
Assessment done.no resp.distress.voided.incision site is dry.pain medicine given. bed locked and in lowest position.phone and call light within reach.instructed to call for assistance as needed.keep monitor the pt.
[2018-08-21] VITALS (8 sets, daily range): BP systolic 95–135; BP diastolic 53–93
--- NOTE | 2018-08-21 03:16 | NUR ---
Blood shahnaz from left ac with b. set and sent to the lab.pt tolerated well.
[2018-08-21 03:26] LABS: BASOPHILS % 0.2 % (0.0-1.0); EOSINOPHILS % 0.4 % (0.0-6.0); HEMATOCRIT 26.1 % (34.2-44.1); HEMOGLOBIN 8.5 g/dL (12.0-16.0); LYMPHOCYTES # (AUTO) 1.3 (1.0-3.2); LYMPHOCYTES % 14.4 % (18.0-39.1); MEAN CORPUSCULAR HEMOGLOBIN 28.2 pg (28-32); MEAN CORPUSCULAR HGB CONC 32.6 g/dL (31-35); MEAN CORPUSCULAR VOLUME 86.7 fL (81-99); MONOCYTES # (AUTO) 0.8 (0.2-0.8); MONOCYTES % 9.1 % (4.4-11.3); NEUTROPHILS # (AUTO) 6.8 (2.1-6.9); NEUTROPHILS % 75.3 % (38.7-80.0); PLATELET COUNT 240 x10e3/uL (140-360); RED BLOOD COUNT 3.01 x10e6/uL (3.6-5.1); RED CELL DISTRIBUTION WIDTH 14.9 % (11.7-14.4)
[2018-08-21 03:42] LABS: ANION GAP 9.5 mmol/L (8-16); BLOOD UREA NITROGEN 16 mg/dL (7-26); BUN/CREATININE RATIO 21 (6-25); CARBON DIOXIDE 20 mmol/L (22-29); CHLORIDE 110 mmol/L (98-107); CREATININE, SERUM 0.78 mg/dL (0.57-1.11); EST GLOMERULAR FILTRATION RATE > 60 ML/MIN (60-); GLUCOSE 89 mg/dL (74-118); POTASSIUM 3.5 mmol/L (3.5-5.1); SODIUM 136 mmol/L (136-145)
[2018-08-21 03:48] LABS: CALCIUM 7.8 mg/dL (8.4-10.2)
[2018-08-21] MEDS: ACETAMINOPHEN 1000 MG/100 ML IV SCH (05:00)
[2018-08-21] MEDS: CEFAZOLIN SOD 1 GM/NS 50ML 50 ML IV SCH (05:43)
[2018-08-21] MEDS: LEVOTHYROXINE SODIUM 100 MCG TAB PO SCH (05:44)
[2018-08-21] MEDS ORDERED: SYNTHROID100 MCG PO (05:50)
[2018-08-21] MEDS: TRAMADOL HCL 50 MG TAB PO PRN (06:27)
--- NOTE | 2018-08-21 06:50 | NUR ---
Dressing changed.pt tolerated well.Bed side report given to the oncoming rn.walking rounds done.stable condition.
[2018-08-21] MEDS: SODIUM CHLORIDE 0.9% 1000ML 1,000 ML IV SCH ×2 (07:16→16:59)
--- NOTE | 2018-08-21 07:41 | NUR ---
RECEIVED PATIENT ASLEEP IN BED NO SIGNS OF DISTRESS. BED LOW, WHEELS LOCKED, SIDE RAILS X2. CALL LIGHT IN REACH WILL CONTINUE TO MONITOR PATIENT.
[2018-08-21] MEDS: POLYETHYLENE GLYCOL 3350 17 GM PACK PO SCH (09:00)
--- NOTE | 2018-08-21 09:25 | NUR ---
PATIENT A/O X3, EVEN RESPIRATIONS ON RA. LUNG SOUNDS CLEAR TO AUSCULTATION. LEFT WRIST IV SL. IV INTACT AND PATENT. RIGHT ELBOW DRESSING CLEAN, DRY, AND INTACT. FOOT PUMPS IN PLACE BILATERALLY. CALL LIGHT IN REACH WILL CONTINUE TO MONITOR PATIENT.
[2018-08-21] MEDS: FLUOXETINE HCL 20 MG CAP PO SCH (09:35)
[2018-08-21] MEDS: FAMOTIDINE 20 MG TAB PO SCH ×2 (09:35→16:58)
[2018-08-21] MEDS: CELECOXIB 100 MG CAP PO SCH (09:35)
[2018-08-21] MEDS: KETOROLAC TROMETHAMINE 30 MG/ML VIAL IV PRN ×2 (09:35→15:59)
[2018-08-21] MEDS: ASPIRIN 325 MG TAB PO SCH ×2 (09:35→16:58)
[2018-08-21] MEDS: OYST-CAL-D 500MG TABLET PO SCH ×2 (09:35→16:58)
[2018-08-21] MEDS: DOCUSATE SODIUM 100 MG CAP PO SCH (09:35)
[2018-08-21] MEDS: BUPROPION HCL 150 MG TABCR PO SCH (09:35)
[2018-08-21] MEDS ORDERED: ACETAMINOPHEN 1000 MG/100 ML IV PRN (11:30)
[2018-08-21] MEDS: ENOXAPARIN SOD INJ 40 MG/0.4 ML SYR SC SCH (16:58)
[2018-08-21] MEDS: CELECOXIB 200 MG CAP PO SCH (16:58)
[2018-08-21] MEDS: SIMVASTATIN 40 MG TAB PO SCH (20:23)
[2018-08-21] MEDS: ACETAMINOPHEN 325 MG TAB PO PRN (20:24)
[2018-08-21] MEDS: ZOLPIDEM TARTRATE 5 MG TAB PO PRN (22:33)
--- NOTE | 2018-08-22 00:13 | NUR ---
Assessment done.no resp.distress.no pain voiced.voided.bed locked and in lowest position.phone and call light within reach.instructed to call for assistance as needed.
[2018-08-22] MEDS: SODIUM CHLORIDE 0.9% 1000ML 1,000 ML IV SCH ×2 (02:45→13:16)
[2018-08-22 03:18] LABS: BASOPHILS # (AUTO) 0.1 (0.0-0.1); BASOPHILS % 0.6 % (0.0-1.0); EOSINOPHILS # (AUTO) 0.3 (0.0-0.4); EOSINOPHILS % 3.5 % (0.0-6.0); HEMATOCRIT 32.1 % (34.2-44.1); HEMOGLOBIN 10.7 g/dL (12.0-16.0); LYMPHOCYTES # (AUTO) 1.8 (1.0-3.2); LYMPHOCYTES % 22.7 % (18.0-39.1); MEAN CORPUSCULAR HGB CONC 33.3 g/dL (31-35); MONOCYTES # (AUTO) 0.7 (0.2-0.8); MONOCYTES % 8.5 % (4.4-11.3); NEUTROPHILS # (AUTO) 5.2 (2.1-6.9); NEUTROPHILS % 63.8 % (38.7-80.0); PLATELET COUNT 276 x10e3/uL (140-360); RED BLOOD COUNT 3.82 x10e6/uL (3.6-5.1); RED CELL DISTRIBUTION WIDTH 15.2 % (11.7-14.4)
--- NOTE | 2018-08-22 03:20 | NUR ---
Blood shahnaz and sent to the lab .pt tolerated well.
[2018-08-22 03:37] LABS: CALCIUM 9.3 mg/dL (8.4-10.2); CREATININE, SERUM 0.93 mg/dL (0.57-1.11)
[2018-08-22 04:00] VITALS: BP 140/67
[2018-08-22] MEDS: TRAMADOL HCL 50 MG TAB PO PRN ×3 (05:11→19:10)
[2018-08-22] MEDS: LEVOTHYROXINE SODIUM 100 MCG TAB PO SCH (05:11)
--- NOTE | 2018-08-22 05:20 | NUR ---
Dressing changed.pt tolerated well.
[2018-08-22] MEDS ORDERED: BISACODYL 5 MG TAB EC PO ONE (05:45)
--- NOTE | 2018-08-22 07:00 | NUR ---
Bed side report given to the oncoming rn.walking rounds done.stable condition.
[2018-08-22 08:28] VITALS: BP 140/64
[2018-08-22] MEDS: FAMOTIDINE 20 MG TAB PO SCH ×2 (08:30→17:23)
[2018-08-22] MEDS: POLYETHYLENE GLYCOL 3350 17 GM PACK PO SCH (09:00)
[2018-08-22] MEDS: BUPROPION HCL 150 MG TABCR PO SCH (10:00)
[2018-08-22] MEDS: FLUOXETINE HCL 20 MG CAP PO SCH (10:00)
[2018-08-22] MEDS: ASPIRIN 325 MG TAB PO SCH ×2 (10:00→17:24)
[2018-08-22] MEDS: CELECOXIB 200 MG CAP PO SCH ×2 (10:00→17:24)
[2018-08-22] MEDS: OYST-CAL-D 500MG TABLET PO SCH ×2 (10:00→17:24)
[2018-08-22 10:40] VITALS: BP 140/64
--- NOTE | 2018-08-22 10:42 | NUR ---
REPOSITIONED AND MEDICATED PER MD ORDER FOR PAIN 12/06 RU ARM/ELBOW, PT FAMILY CONCERNED OVER DOSE OF THYROID MEDICATION AND THAT PT HAS NOT HAD BM FOR "8 DAYS", PT REFUSED MIRALAX DUE TO "MAKE ME LEAK",
--- NOTE | 2018-08-22 10:47 | Consultation ---
DATE OF CONSULTATION: 08/16/2018 CHIEF COMPLAINT: Right elbow and right hip pain. HISTORY OF PRESENT ILLNESS: This patient is an 82-year-old female, who presents with right elbow and right hip pain. She originally presented in our office on 08/08/2018. She had a fall on 08/06/2018 at her daughter's home. She states she had immediate pain in the right elbow and right hip. She states she was unable to get up and bear weight on the right leg. She had x-rays and a CT scan of the right hip. She was told that she had a right olecranon fracture. We reviewed the options in our office. We discussed open reduction and internal fixation of the right olecranon. We decided we would let the soft tissue improve before proceeding with surgery. She was given a followup in roughly one week. Earlier today, the daughter called stating the patient complained of intractable right hip pain and she has not been able to get out of bed for the last week. She states she was unable to get her to the car. They called EMS and had her brought back to the hospital. We had also ordered a bone scan to rule out any occult fracture. PAST MEDICAL HISTORY: High cholesterol. SOCIAL HISTORY: The patient denies alcohol and/or tobacco use. She is and has three children. ALLERGIES: DEMEROL. MEDICATIONS: See MAR. REVIEW OF SYSTEMS: All negative other than the right elbow pain and right hip pain. PHYSICAL EXAMINATION: GENERAL: She is pleasant and well-nourished female. She is in no apparent distress. She is awake, alert, and oriented appropriately. EXTREMITIES: Her right arm is in a well-padded posterior splint, I did not remove this. She can make a completely close fist. Distal neurovascular exam in the right hand is grossly normal. She has painful passive range of motion in the right hip. The right leg is neutrally rotated. Limb lengths were equal. Distal neurovascular exam in the right lower extremity is normal. IMAGING: Previous x-rays of the right hip and pelvis were reviewed and showed no clear evidence of a fracture. I went back and reviewed the CT scan of the right hip. There is a small nondisplaced fracture in the right greater trochanter. The bone scan shows increased uptake in the right greater trochanter including both sacral ala and the right olecranon. ASSESSMENT AND PLAN: This is an 82-year-old female with a right olecranon fracture, a right greater trochanter fracture, and bilateral sacral ala fractures. The findings were discussed with the patient and the family. We will continue to plan on open reduction and internal fixation of the right olecranon. We will schedule this during the regular surgery schedule early next week to allow the soft tissue swelling around the elbow to improve. The risks and benefits of the surgery were reviewed. The recovery was discussed. The patient states she understands and wished to proceed. The treatment for her bilateral sacral ala fractures and right greater trochanter fracture were discussed. I went ahead and ordered a repeat x-ray of the AP pelvis and right hip just to rule out an occult fracture involving the intertrochanteric region. As long as these fractures are negative for anything surgical, we will mobilize her with physical therapy. She can weight bear as tolerated with a walker. She may need to use a platform walker on the right side. All this was discussed with the patient and her daughter. They agree with the plan. We will plan for open reduction and internal fixation of the right olecranon early next week. Thank you for the consultation. Dictated by Jean Sage PA-C MD MARÍA ELENA Reyez/JOSE JUAN /[id number]
--- NOTE | 2018-08-22 11:11 | NUR ---
Received call from pt's daughter stating they have choice for facility. CM to bedside and spoke to daughters Trinidad and Renuka. Renuka states that they would like for their mom to go to [facility]. CM informed them we have order for SNF and educated on level of care between SNF vs inpatient rehab. Daughters stated they would like for us to try to inpatient rehab. States SNF environment is "too depressing." CM received order from [facility] for inpatient rehab eval. Renuka signed choice letter for [facility] and [facility] for SNF option if pt doesn't qualify for inpatient rehab. Signed choice letter placed in chart. Copy given to Renuka. CM informed Vane Wall, liaison with [facility] of referral. Referral was faxed to [phone] Vane will be by shortly to see pt.
[2018-08-22 12:35] VITALS: BP 123/71
--- NOTE | 2018-08-22 13:53 | NUR ---
Received MOT from Vane Wall with [facility] [address] [address] call report to [phone] Room will be assigned on report Accepting physician: Dr. Tamia Frazier Admin: ZULEMA GlezO MOT completed and placed with pt's packet at nurse's station. VENTURA Shelley was informed of bed assignment.
[2018-08-22] MEDS ORDERED: CITRATE OF MAGNESIA 300ML BOTTLE ONE (14:12)
[2018-08-22] MEDS ORDERED: CITRATE OF MAGNESIA 300ML BOTTLE PO ONE (14:15)
--- NOTE | 2018-08-22 15:30 | NUR ---
OOB WITH PHYSICAL THERAPY, SITTING IN CHAIR, CALL LIGHT WITHIN REACH
--- NOTE | 2018-08-22 16:09 | NUR ---
REPORT TO VANDANA AT [facility], MOT TO HOUSE, PT AND FAMILY MADE AWARE THAT REPORT HAS BEEN CALLED, JUST WAITING ON AMBULANCE, PT TO TRANSFER TO ROOM 2016
[2018-08-22 16:45] VITALS: BP 142/69
[2018-08-22] MEDS: ENOXAPARIN SOD INJ 40 MG/0.4 ML SYR SC SCH (17:24)
--- NOTE | 2018-08-22 17:25 | NUR ---
PT REPORTS PASSING FLATUS, NO BM AT THIS TIME, PER HOUSE, 1.5 HOURS UNTIL AMBULANCE PICKS UP PT, FAMILY AND PT NOTIFIED, DENIES NEED FOR PAIN MEDICATION AT THIS TIME, CALL LIGHT WITHIN REACH
--- NOTE | 2018-08-22 19:08 | NUR ---
WALKING ROUNDS PERFORMED, RECEIVED PT LAYING SEMI FOWLERS IN BED, AAOX3, RR EVEN AND NON-LABORED, ON RA. (R) ELBOW WRAPPED IN NELSON WRAP AND ELEVATED ON PILLOW. PT REPORTS PAIN TO (R) ELBOW. LEFT PT LAYING SEMI FOWLERS IN BED, BED IN LOW LOCKED POSITION, SIDE RAILS UPX2, CALL LIGHT AND PHONE WITHIN REACH. FAMILY AT BEDSIDE.
[2018-08-22 19:30] VITALS: BP 121/65
--- NOTE | 2018-08-22 19:53 | NUR ---
IV TO (L) WRIST DISCONTINUED. CATHETER TIP INTACT. PRESSURE AND DRESSING APPLIED.
--- NOTE | 2018-08-22 19:58 | NUR ---
PT DISCHARGED BY EMS TO [facility]. PT IS AAOX3, IN STABLE CONDITION.
--- NOTE | 2018-08-23 16:08 | Discharge Summary ---
ADMISSION DIAGNOSES: Comminuted right olecranon fracture, right greater trochanter fracture, intractable pain due to elbow and hip fractures with ambulatory dysfunction; major recurrent depression, hypothyroidism. DISCHARGE DIAGNOSES: Comminuted right olecranon fracture, right greater trochanter fracture, intractable pain due to elbow and hip fractures with ambulatory dysfunction; major recurrent depression, hypothyroidism. HISTORY: The patient has a history of hypothyroidism and major recurrent depression. SURGICAL HISTORY: x3, bilateral rotator cuff surgery and lumbar laminectomy x3. FAMILY HISTORY: Noncontributory. SOCIAL HISTORY: Noncontributory. HOSPITAL COURSE: An 82-year-old female fell at home about a week ago. X-ray of the right hip showed diffuse bony osteopenia, possible right subscapular and greater trochanteric fracture. CT of the hip showed nondisplaced fracture of the right greater trochanter, sclerosis of the partially visualized sacrum secondary to prior insufficiency fracture and records indicate a comminuted fracture of the right elbow, it was reduced and splinted in the ER. The patient then had an ORIF of the olecranon process fracture on 08/20/2018, it is splinted and wrapped. Pain is well controlled. The patient is weightbearing on the hip as tolerated. The patient's TSH was found to be in the 20s, so her levothyroxine was increased to 200 daily. She will be discharged to [facility] per her daughter's recommendation. Vital signs stable. The patient is afebrile. The patient and daughter understand discharge instructions and agrees to plan. Dictated by Mikayla Boyer NP MD MART Booth/MODL /[id number]
== END 2018-08-22 19:58 | DRG 958 ==
LOC: MED/SURG 14:06
PROVIDERS: ADMIT Internal Medicine; ATTEND Internal Medicine
PROC: 0PSK04Z Reposition Right Ulna with Internal Fixation Device, Open Approach (ICD-10-PCS; principal; 2018-08-20 11:30)
DX: S52.021A Displaced fracture of olecranon process without intraarticular extension of right ulna, initial encounter for closed fracture (principal); S72.114A Nondisplaced fracture of greater trochanter of right femur, initial encounter for closed fracture; S32.10XA Unspecified fracture of sacrum, initial encounter for closed fracture; F33.9 Major depressive disorder, recurrent, unspecified; E03.9 Hypothyroidism, unspecified; R26.9 Unspecified abnormalities of gait and mobility; W19.XXXA Unspecified fall, initial encounter
CPT/HCPCS: 36415; 76000; 78306; 80048; 80053; 82948; 84439; 84443; 85025; 93005; 97139; A9503; C1713; J0690; J1100; J1650; J1885; J2001; J2370; J2405; J3010; J3410; J7030

== ENCOUNTER 2019-04-13 10:47 | Inpatient (IN) | payer MEDICARE ==
[~2019-04-13] VITALS: Ht 157.5 cm; Wt 65.1 kg
[~2019-04-13 10:47] MED LIST changes: +PROZAC20 MG PO; +SYNTHROID100 MCG PO; +WELLBUTRIN SR150 MG PO
[2019-04-13] MEDS ORDERED: ONDANSETRON HCL INJ 2MG/ML 2ML 2 MG/ML VIAL IV STA (11:09)
[2019-04-13] MEDS ORDERED: MORPHINE SULFATE 2 MG/ML SYR 1ML IV STA (11:09)
[2019-04-13] MEDS ORDERED: PANTOPRAZOLE 40 MG 10ML VIAL IV STA (11:09)
[2019-04-13] MEDS ORDERED: SODIUM CHLORIDE 0.9% 1000ML 1,000 ML IV STA (11:09)
[2019-04-13 11:32] LABS: BASOPHILS # (AUTO) 0.1 (0.0-0.1); BASOPHILS % 0.4 % (0.0-1.0); EOSINOPHILS # (AUTO) 0.1 (0.0-0.4); EOSINOPHILS % 0.8 % (0.0-6.0); HEMATOCRIT 37.5 % (34.2-44.1); HEMOGLOBIN 12.2 g/dL (12.0-16.0); LYMPHOCYTES % 14.4 % (18.0-39.1); MEAN CORPUSCULAR HEMOGLOBIN 27.7 pg (28-32); MEAN CORPUSCULAR HGB CONC 32.5 g/dL (31-35); MEAN CORPUSCULAR VOLUME 85.2 fL (81-99); MONOCYTES % 7.3 % (4.4-11.3); NEUTROPHILS # (AUTO) 10.7 (2.1-6.9); NEUTROPHILS % 76.5 % (38.7-80.0); PLATELET COUNT 286 x10e3/uL (140-360); RED CELL DISTRIBUTION WIDTH 14.4 % (11.7-14.4)
[2019-04-13 11:49] LABS: INR 1.07; PROTHROMBIN TIME 14.6 seconds (11.9-14.5)
[2019-04-13 11:50] LABS: PARTIAL THROMBOPLASTIN TIME 33.2 seconds (23.8-35.5)
[2019-04-13 11:54] LABS: CLARITY,URINE CLEAR (CLEAR); COLOR,URINE YELLOW (YELLOW); KETONES,URINE NEGATIVE (NEGATIVE); LEUKOCYTE ESTERASE ,URINE NEGATIVE (NEGATIVE); NITRITE,URINE NEGATIVE (NEGATIVE); PROTEIN,URINE DIPSTICK NEGATIVE (NEGATIVE); URINE UROBILINOGEN 1 mg/dL (0.2 - 1)
[2019-04-13 11:55] LABS: BILIRUBIN,URINE NEGATIVE (NEGATIVE)
--- NOTE | 2019-04-13 11:57 | Diagnostic Imaging Report ---
Examination: Single AP view of the chest. COMPARISON: 08/06/2018 INDICATION: Abdominal pain DISCUSSION: The lungs are well inflated. No focal consolidation, pleural effusion, or pneumothorax. Stable cardiomediastinal contour with markedly tortuous thoracic aorta. Prominence of the right paratracheal region of the mediastinum presumably reflects great vessel tortuosity. Prominent central pulmonary vasculature similar to prior. No acute osseous abnormalities. IMPRESSION: Pulmonary venous congestion similar to that noted 08/06/2018. Signed by: Dr. Chandrakant Cruz M.D. on 04/13/2019 11:54 AM
[2019-04-13 11:58] LABS: ALBUMIN 3.1 g/dL (3.5-5.0); ALBUMIN/GLOBULIN RATIO 0.8 (0.8-2.0); ANION GAP 14.1 mmol/L (8-16); CALCIUM 10.1 mg/dL (8.4-10.2); CREATININE, SERUM 0.9 mg/dL (0.57-1.11); POTASSIUM 4.1 mmol/L (3.5-5.1)
[2019-04-13 12:07] LABS: CREATINE KINASE MB 1.7 ng/mL (0-5.0)
[2019-04-13 12:22] LABS: BACTERIA,URINE FEW /HPF; EPITHELIAL CELLS,URINE FEW /LPF; RBC,URINE 0-5 /HPF (0-5); WBC,URINE (MAN) 0-5 /HPF (0-5)
--- NOTE | 2019-04-13 12:47 | Diagnostic Imaging Report ---
EXAMINATION: CT of the abdomen and pelvis with contrast. TECHNIQUE: Spiral CT images of the abdomen and pelvis were performed from the lung bases to the lesser trochanters after the intravenous administration of 100 cc of Isovue 370. Coronal and sagittal reformatted images were obtained. COMPARISON: None. CLINICAL HISTORY:Mid epigastric abdominal pain DISCUSSION: ABDOMEN/PELVIS: LOWER THORAX:Lung bases are unremarkable. No pleural effusion. HEPATOBILIARY: Subcentimeter hypoattenuating lesions in hepatic segment 2 are too small to further characterize but likely represent small cysts. Trace intra and extrahepatic biliary ductal dilatation status post cholecystectomy. SPLEEN: No splenomegaly or focal splenic lesion. PANCREAS: No focal masses or ductal dilatation. ADRENALS: No adrenal nodules. KIDNEYS/URETERS: Exophytic subcentimeter hypoattenuating lesion projecting from the left kidney is too small to further characterize but likely represent a small cyst. No hydronephrosis calculi, or solid mass lesion. PELVIC ORGANS/BLADDER: The urinary bladder is unremarkable. Uterus is anteflexed and appears normal. No adnexal mass. Multiple pelvic phleboliths. PERITONEUM/RETROPERITONEUM: Trace pelvic ascites average internal attenuation 5-10 Hounsfield units. No pneumoperitoneum. LYMPH NODES: No pelvic sidewall, retroperitoneal, or mesenteric lymphadenopathy. VESSELS: Atherosclerotic calcification of the abdominal aorta, major branch vessels, and iliac arterial systems. There is focal ectasia of the infrarenal abdominal aorta to a diameter of 2.4 cm, without aneurysmal dilatation. Portal vein, splenic vein, and central superior mesenteric vein are patent. GI TRACT: The large bowel shows no distention or wall thickening. Gas and fecal material are noted throughout. No distention or wall thickening. Small sliding hiatal hernia. The stomach is collapsed with prominence of the rugal folds. Mild dilatation of several loops of small bowel in the right mid abdomen to a maximum caliber of 3 cm with mesenteric inflammatory change. Suspected transition point in the right mid abdomen seen on series 2 image 44. BONES AND SOFT TISSUE: Multilevel degenerative disc changes of the lumbar spine with degenerative anterolisthesis of L3 over L4. No focal soft tissue abnormalities . Postsurgical changes of the anterior abdominal wall. IMPRESSION: Findings are concerning for early small bowel obstruction with a transition point in the right mid abdomen. No elias perforation or drainable fluid collection. Reactive mesenteric inflammation and free pelvic fluid. Signed by: Dr. Chandrakant Cruz M.D. on 04/13/2019 12:45 PM
--- NOTE | 2019-04-13 13:18 | NUR ---
14fr ngt inserted. pt tolerated well. npo status
[2019-04-13] MEDS ORDERED: BENZOCAINE/TETRACAINE/BUTAMBEN AERO SPRAY 56 GM CAN TOP ONE (13:30)
[2019-04-13] MEDS ORDERED: ONDANSETRON HCL INJ 2MG/ML 2ML 2 MG/ML VIAL IV PRN (13:30)
[2019-04-13] MEDS: PIPER-TAZ 3.375 GM 50 ML IV SCH ×2 (13:40→17:41)
--- NOTE | 2019-04-13 13:44 | Diagnostic Imaging Report ---
Exam: Abdominal film Clinical History: NG tube placement Comparison: CT abdomen and pelvis same day DISCUSSION: Interval placement of a nasogastric tube. The tip projects over the gastric fundus. Side port projects over the gastroesophageal junction. Consider advancement. Mild gaseous distention of the colon. Dilated small bowel loops scattered on comparison CT are poorly visualized by plain radiography. Excreted intravenous contrast material opacifies the renal collecting systems and urinary bladder. Regional skeletal structures intact. IMPRESSION: Interval placement of an enteric tube, with the tip projecting over the gastric fundus. Consider advancement. Dilated loops of small bowel described on comparison CT are poorly visualized by plain radiography. Refer to same day CT abdomen and pelvis for further description. Signed by: Dr. Chandrakant Cruz M.D. on 04/13/2019 1:41 PM
[2019-04-13] MEDS: SODIUM CHLORIDE 0.9% 1000ML 1,000 ML IV SCH (14:44)
[2019-04-13] MEDS ORDERED: OMEPRAZOLE20 MG PO (15:21)
[2019-04-13] MEDS ORDERED: SYNTHROID125 MCG PO (15:21)
[2019-04-13] MEDS ORDERED: CARBIDOPA-LEVO1 EAC1 PO (15:21)
[2019-04-13] MEDS ORDERED: NEUPRO1 EACH (15:21)
[2019-04-13] MEDS ORDERED: LISINOPRIL5 MG PO (15:21)
[2019-04-13] MEDS ORDERED: FLUTICASONE PRO16 GM (15:21)
--- NOTE | 2019-04-13 16:03 | NUR ---
Received patient from ER, a/ox3, chief c/o abdominal pain, SBO per CT scan abd/pelvis, PMH significant for HTN, HLd, Hypothyroidism. NG tube in place to LIWS, draining appropriately, ambulatory, assisted to B/R and voided, denies any pains at this time, afebrile, no N/V, daughter at bed side, call light within reach, will monitor.
[2019-04-13 16:14] VITALS: BP 151/85
[2019-04-13 17:04] VITALS: BP 151/85
--- NOTE | 2019-04-13 17:57 | NUR ---
Patient c/o headache and call to Dr. Jimenez, orders of Tylenol IV and will medicate with verified, no distress at this time, NG tube in place draining LIWS, will monitor.
[2019-04-13] MEDS ORDERED: ACETAMINOPHEN 1000 MG/100 ML IV PRN ×2 (18:00→22:00)
[2019-04-13] MEDS ORDERED: SODIUM CHLORIDE 0.9% 50ML 50 ML ONE (18:18)
[2019-04-13] MEDS ORDERED: IOPAMIDOL 370 MG/ML 200 ML INFUS..BTL INJ ONE (18:18)
--- NOTE | 2019-04-13 19:20 | NUR ---
Bedside nursing shift report with morning nurse. Pt lying in bed HOB 30 degrees. Denies pain at this time. Call light within reach. Family at bedside. Bed locked. Will continue to monitor.
--- NOTE | 2019-04-13 19:21 | NUR ---
Report given to on coming nurse and rounds completed, patient stable and call light within reach,
[2019-04-13 20:00] VITALS: BP 106/67
[2019-04-13 21:00] VITALS: BP 106/67
[2019-04-13] MEDS ORDERED: ACETAMINOPHEN 1000 MG/100 ML IV SCH (22:00)
[2019-04-14] VITALS (8 sets, daily range): BP systolic 106–128; BP diastolic 68–74
[2019-04-14] MEDS: PIPER-TAZ 3.375 GM 50 ML IV SCH ×4 (00:10→19:28)
[2019-04-14] MEDS: SODIUM CHLORIDE 0.9% 1000ML 1,000 ML IV SCH ×3 (05:50→19:20)
[2019-04-14 06:11] LABS: BASOPHILS % 0.3 % (0.0-1.0); EOSINOPHILS # (AUTO) 0.1 (0.0-0.4); EOSINOPHILS % 1.1 % (0.0-6.0); HEMATOCRIT 35.8 % (34.2-44.1); HEMOGLOBIN 11.6 g/dL (12.0-16.0); LYMPHOCYTES # (AUTO) 1.7 (1.0-3.2); LYMPHOCYTES % 13.9 % (18.0-39.1); MEAN CORPUSCULAR HEMOGLOBIN 27.9 pg (28-32); MEAN CORPUSCULAR HGB CONC 32.4 g/dL (31-35); MEAN CORPUSCULAR VOLUME 86.1 fL (81-99); MONOCYTES % 8.3 % (4.4-11.3); NEUTROPHILS # (AUTO) 9.4 (2.1-6.9); NEUTROPHILS % 75.8 % (38.7-80.0); PLATELET COUNT 274 x10e3/uL (140-360); RED BLOOD COUNT 4.16 x10e6/uL (3.6-5.1); RED CELL DISTRIBUTION WIDTH 14.6 % (11.7-14.4)
[2019-04-14 06:36] LABS: ALANINE AMINOTRANSFERASE 11 IU/L (0-55); ALBUMIN 2.7 g/dL (3.5-5.0); ALBUMIN/GLOBULIN RATIO 0.8 (0.8-2.0); ALKALINE PHOSPHATASE 114 IU/L (40-150); BLOOD UREA NITROGEN 19 mg/dL (7-26); BUN/CREATININE RATIO 23 (6-25); CALCIUM 9.6 mg/dL (8.4-10.2); CHLORIDE 106 mmol/L (98-107); CREATININE, SERUM 0.82 mg/dL (0.57-1.11); EST GLOMERULAR FILTRATION RATE > 60 ML/MIN (60-); GLUCOSE 102 mg/dL (74-118); POTASSIUM 4.4 mmol/L (3.5-5.1); SODIUM 138 mmol/L (136-145)
--- NOTE | 2019-04-14 07:25 | NUR ---
Bedside nursing shift report to morning nurse. Pt lying in bed HOB 60. Denies pain at this time. No acute distress noted.
[2019-04-14 07:26] LABS: ANION GAP 14.4 mmol/L (8-16); CARBON DIOXIDE 22 mmol/L (22-29)
--- NOTE | 2019-04-14 09:27 | NUR ---
H&P cc: abdominal pain HPI: 83yoF, PCP , developed abdominal pain severe upon awakening; No cp. no sob. Found to have SBO, NGT placed. PMH: Elderly fall, right olecranon fracture, right greater trochanteric fracture, Hypothyroidism, Depression, movement d/o, stroke, chronic constipatoin PSHx: x3; B/L rotator cuff, lumbar laminectomy x3, cataract, bunion Allergies; see emr Fh/SH; ; no cigs Meds; see MAR ROS: no f/c/s/D/MOLINA/cp/sob/skin rash/back pain/vision changes/focal limb weakness/confusion v/s; revd PE tired appearing; NGT in place anicteric ns1s2 mod bs soft nd; left abdominal tenderness no e/t skin dry flat affect labs/meds revd A/P: 83yoF SBO- NGT; PT consult; ambulate; optimize lytes Constipation- per surgery. Hypothyroidism- IV synthroid 1/2 dose; check TSH Movement d/o- hold oral med Prop: scd; PPI DIspo: Nancy Jimenez MD, PhD.
[2019-04-14] MEDS ORDERED: ONDANSETRON HCL INJ 2MG/ML 2ML 2 MG/ML VIAL IV PRN (09:30)
--- NOTE | 2019-04-14 19:20 | NUR ---
bedside report given to PM RN; pt awake, alert, no signs of distress. in stable condition.
--- NOTE | 2019-04-14 19:25 | NUR ---
Received the patient in report.aaox3.assessment done.no resp.distress.lyeing in the bed.ng tube connected to wall suction.iv fluid running.bed alarm on.bed locked and in lowest position.phone and call light within reach.instructed to call for assistance as needed.
[2019-04-14] MEDS ORDERED: LORAZEPAM INJ 2 MG/ML VIAL IV PRN (20:00)
--- NOTE | 2019-04-14 20:23 | NUR ---
Patient and family demanded some medication to calm down the patient.call placed to .received new orders .
[2019-04-14] MEDS: BISACODYL 10 MG SUPP PR SCH (20:45)
[2019-04-15] VITALS (8 sets, daily range): BP systolic 102–125; BP diastolic 59–74
[2019-04-15] MEDS: PIPER-TAZ 3.375 GM 50 ML IV SCH ×5 (00:10→23:59)
[2019-04-15] MEDS: LEVOTHYROXINE SODIUM 100 MCG/VIAL IV SCH ×2 (04:45→08:50)
[2019-04-15] MEDS: SODIUM CHLORIDE 0.9% 1000ML 1,000 ML IV SCH ×2 (06:08→15:20)
[2019-04-15 06:11] LABS: BASOPHILS % 0.4 % (0.0-1.0); EOSINOPHILS # (AUTO) 0.2 (0.0-0.4); EOSINOPHILS % 2.2 % (0.0-6.0); HEMOGLOBIN 11.1 g/dL (12.0-16.0); LYMPHOCYTES # (AUTO) 1.7 (1.0-3.2); LYMPHOCYTES % 17.5 % (18.0-39.1); MEAN CORPUSCULAR HEMOGLOBIN 27.8 pg (28-32); MEAN CORPUSCULAR HGB CONC 32.6 g/dL (31-35); MEAN CORPUSCULAR VOLUME 85.2 fL (81-99); MONOCYTES # (AUTO) 0.8 (0.2-0.8); MONOCYTES % 8.4 % (4.4-11.3); NEUTROPHILS % 70.8 % (38.7-80.0); PLATELET COUNT 279 x10e3/uL (140-360); RED BLOOD COUNT 3.99 x10e6/uL (3.6-5.1); RED CELL DISTRIBUTION WIDTH 14.4 % (11.7-14.4)
--- NOTE | 2019-04-15 06:30 | NUR ---
PATIENT IS OFF THE UNIT FOR X RAY.
[2019-04-15 06:33] LABS: ALANINE AMINOTRANSFERASE 12 IU/L (0-55); ALBUMIN 2.7 g/dL (3.5-5.0); ALBUMIN/GLOBULIN RATIO 0.8 (0.8-2.0); ALKALINE PHOSPHATASE 106 IU/L (40-150); ANION GAP 14.7 mmol/L (8-16); BLOOD UREA NITROGEN 15 mg/dL (7-26); BUN/CREATININE RATIO 19 (6-25); CALCIUM 9.4 mg/dL (8.4-10.2); CARBON DIOXIDE 21 mmol/L (22-29); CHLORIDE 106 mmol/L (98-107); CREATININE, SERUM 0.79 mg/dL (0.57-1.11); EST GLOMERULAR FILTRATION RATE > 60 ML/MIN (60-); GLUCOSE 77 mg/dL (74-118); POTASSIUM 3.7 mmol/L (3.5-5.1); SODIUM 138 mmol/L (136-145)
--- NOTE | 2019-04-15 07:00 | NUR ---
Bed side shift report given to oncoming RN.stable condition.
--- NOTE | 2019-04-15 07:10 | NUR ---
RCD PT AT BED PT IS ALERT AND ORIENTED PT RESTING ON BED IV PATENT BY SALINE PT NPO AND NG TUBE WITH LOW INTERMITTENT SUCTION FLUSH BED LOW AND LOCKED CALL LIGHT IN REACH
--- NOTE | 2019-04-15 07:19 | NUR ---
IM- progress note O/N see below ROS: no f/c/s/D/MOLINA/cp/sob/skin rash/back pain/vision changes/focal limb weakness/confusion v/s; revd PE tired appearing; NGT in place anicteric ns1s2 mod bs soft nd; left abdominal tenderness no e/t skin dry flat affect labs/meds revd A/P: 83yoF SBO- NGT; PT consult; ambulate; optimize lytes Constipation- per surgery. Hypothyroidism- IV synthroid 1/2 dose; check TSH Movement d/o- hold oral med Prop: scd; PPI DIspo: 04/15 leukocytosis resolved; f/u KUB; Nancy Jimenez MD, PhD.
[2019-04-15] MEDS: BISACODYL 10 MG SUPP PR SCH ×2 (08:00→21:00)
--- NOTE | 2019-04-15 08:14 | Diagnostic Imaging Report ---
Exam: Abdominal film with upright PA chest Clinical History: Small bowel obstruction Comparison: KUB 04/13/2019, CT abdomen and pelvis 04/13/2019 DISCUSSION: The lungs are well-inflated and without focal airspace consolidation, pleural effusion, or pneumothorax. Cardiomediastinal contour is notable for tortuous thoracic aorta with atherosclerotic calcification. Normal heart size without overt pulmonary edema. Interval advancement of enteric tube. The tip now projects over the gastric body. There is persistent dilatation of several loops of small bowel in the right mid abdomen to a maximum caliber of 4 cm, with air-fluid levels noted on the upright radiograph. No elias pneumoperitoneum. Gas and fecal material is noted throughout the large bowel. Regional skeletal structures are intact. IMPRESSION: No acute cardiopulmonary abnormality. Interval advancement of enteric tube with the tip now projecting over the distal gastric body. Persistent findings suggestive of small bowel obstruction. Signed by: Dr. Chandrakant Cruz M.D. on 04/15/2019 8:12 AM
[2019-04-15] MEDS: PANTOPRAZOLE 40 MG 10ML VIAL IV SCH (08:50)
[2019-04-15] MEDS ORDERED: BISACODYL 10 MG SUPP PR SCH (09:40)
--- NOTE | 2019-04-15 18:15 | NUR ---
DC NG TUBE BY ORDER
[2019-04-15] MEDS ORDERED: ACETAMINOPHEN 325 MG TAB PO PRN (18:30)
[2019-04-15] MEDS: LISINOPRIL 10 MG TAB PO SCH (18:45)
--- NOTE | 2019-04-15 19:10 | NUR ---
PT RESTING ON BED BED SIDE REPORT GIVEN TO ONCOMING NURSE
[2019-04-16 01:04] VITALS: BP 111/64
[2019-04-16] MEDS: SODIUM CHLORIDE 0.9% 1000ML 1,000 ML IV SCH ×2 (03:15→11:20)
[2019-04-16 06:03] VITALS: BP 96/59
[2019-04-16] MEDS: PIPER-TAZ 3.375 GM 50 ML IV SCH ×2 (06:07→12:00)
--- NOTE | 2019-04-16 06:45 | NUR ---
D/c summary Principal Dx: SBO- NGT; PT consult; ambulate; optimize lytes Constipation- per surgery. Hypothyroidism- IV synthroid 1/2 dose; check TSH Movement d/o- hold oral med Prop: scd; PPI DIspo: 04/15 leukocytosis resolved; f/u KUB; 04/16 check labs; Had multiple BMs; d/c home d/c home stable f/u pcp 1 week d/c>35mins Nancy Jimenez MD, PhD.
[2019-04-16 07:07] LABS: BASOPHILS % 0.4 % (0.0-1.0); EOSINOPHILS # (AUTO) 0.2 (0.0-0.4); EOSINOPHILS % 2.5 % (0.0-6.0); HEMATOCRIT 35.4 % (34.2-44.1); HEMOGLOBIN 11.5 g/dL (12.0-16.0); LYMPHOCYTES # (AUTO) 1.5 (1.0-3.2); LYMPHOCYTES % 20.2 % (18.0-39.1); MEAN CORPUSCULAR HGB CONC 32.5 g/dL (31-35); MEAN CORPUSCULAR VOLUME 86.1 fL (81-99); MONOCYTES # (AUTO) 0.7 (0.2-0.8); MONOCYTES % 8.7 % (4.4-11.3); NEUTROPHILS # (AUTO) 5.1 (2.1-6.9); NEUTROPHILS % 67.7 % (38.7-80.0); PLATELET COUNT 266 x10e3/uL (140-360); RED BLOOD COUNT 4.11 x10e6/uL (3.6-5.1); RED CELL DISTRIBUTION WIDTH 14.1 % (11.7-14.4)
--- NOTE | 2019-04-16 07:20 | NUR ---
Bedside nursing shift report to morning nurse. Pt lying in bed HOB 45. Denies pain at this time. No acute distress noted.
[2019-04-16 07:33] LABS: ANION GAP 15.9 mmol/L (8-16); BLOOD UREA NITROGEN 15 mg/dL (7-26); BUN/CREATININE RATIO 19 (6-25); CALCIUM 9.6 mg/dL (8.4-10.2); CARBON DIOXIDE 20 mmol/L (22-29); CHLORIDE 108 mmol/L (98-107); CREATININE, SERUM 0.78 mg/dL (0.57-1.11); EST GLOMERULAR FILTRATION RATE > 60 ML/MIN (60-); GLUCOSE 71 mg/dL (74-118); POTASSIUM 3.9 mmol/L (3.5-5.1); SODIUM 140 mmol/L (136-145)
[2019-04-16] MEDS: PANTOPRAZOLE 40 MG 10ML VIAL IV SCH (08:25)
[2019-04-16] MEDS: LISINOPRIL 10 MG TAB PO SCH ×2 (08:25→17:45)
[2019-04-16 08:54] VITALS: BP 108/69
[2019-04-16] MEDS: LEVOTHYROXINE SODIUM 100 MCG/VIAL IV SCH (09:00)
--- NOTE | 2019-04-16 09:28 | Diagnostic Imaging Report ---
EXAMINATION: ABDOMEN ACUTE SERIES W/PA CXR INDICATION: Small bowel obstruction COMPARISON: Abdomen acute series with CXR of 04/15/2019 FINDINGS: LINES/TUBES:Interval removal of enteric tube. LUNGS:The lungs are mildly hyperinflated. No focal consolidation or pulmonary edema. Mild biapical pleural parenchymal thickening/scarring. PLEURA:No pleural effusion or pneumothorax. MEDIASTINUM:The cardiomediastinal silhouette appears normal in size and shape. Atherosclerotic calcifications of the thoracic aorta. BONES/SOFT TISSUES:No acute osseous injury. ABDOMEN:Nonobstructive bowel gas pattern. No free air. Status post cholecystectomy. Prominent degenerative changes of the visualized spine. Phleboliths in the pelvis. IMPRESSION: Nonobstructive bowel gas pattern. No free air. Interval removal of enteric tube. No acute cardiopulmonary process. Signed by: Faith Thomas MD on 04/16/2019 9:25 AM
[2019-04-16] MEDS: BISACODYL 10 MG SUPP PR SCH (11:09)
[2019-04-16 12:54] VITALS: BP 121/72
[2019-04-16 18:04] VITALS: BP 110/70
--- NOTE | 2019-04-16 18:21 | NUR ---
Dr. French is here making rounds. He said it is OK for patient to dc home and follow up in the office. No prescriptions needed.
--- NOTE | 2019-04-16 18:41 | NUR ---
Discharge instructions given to the patient and her daughter, she verbalized understanding. IV was removed earlier in the shift with tip intact.
== END 2019-04-16 18:50 | disposition home or self-care (01) | DRG 390 ==
LOC: ER 10:47 → ERHOLD 13:20 → MED/SURG2 15:51
PROVIDERS: ADMIT Internal Medicine; ATTEND Internal Medicine
DX: K56.609 Unspecified intestinal obstruction, unspecified as to partial versus complete obstruction (principal); E03.9 Hypothyroidism, unspecified; Z86.73 Personal history of transient ischemic attack (TIA), and cerebral infarction without residual deficits
CPT/HCPCS: 36415; 71045; 74018; 74022; 74177; 80048; 80053; 81001; 82150; 82550; 82553; 83690; 83735; 84443; 84484; 85025; 85610; 85730; 87086; 93005; 96361; 97139; 99284; J2060; J2270; J2405; J2543; J7030; Q9967

== ENCOUNTER 2023-06-24 14:06 | Emergency (ER) | payer MEDICARE ==
[~2023-06-24] VITALS: Ht 157.5 cm; Wt 64.9 kg
[~2023-06-24 14:06] MED LIST changes: +CARBIDOPA-LEVO1 EAC1 PO; +FLUTICASONE PRO16 GM; +LISINOPRIL5 MG PO; +NEUPRO1 EACH; +OMEPRAZOLE20 MG PO; +SYNTHROID125 MCG PO
[2023-06-24] MEDS: ONDANSETRON HCL INJ 2MG/ML 2ML 2 MG/ML VIAL IV STA (15:12)
[2023-06-24 15:13] LABS: BASOPHILS % 0.2 % (0.0-1.0); CLARITY,URINE CLEAR (CLEAR); COLOR,URINE YELLOW (YELLOW); EOSINOPHILS # (AUTO) 0.1 (0.0-0.4); EOSINOPHILS % 0.5 % (0.0-6.0); GLUCOSE, URINE NEGATIVE (NEGATIVE); HEMOGLOBIN 12.3 g/dL (12.0-16.0); KETONES,URINE NEGATIVE (NEGATIVE); LEUKOCYTE ESTERASE ,URINE TRACE (NEGATIVE); LYMPHOCYTES # (AUTO) 1.5 (1.0-3.2); LYMPHOCYTES % 13.7 % (18.0-39.1); MEAN CORPUSCULAR HEMOGLOBIN 27.8 pg (28-32); MEAN CORPUSCULAR HGB CONC 34.2 g/dL (31-35); MEAN CORPUSCULAR VOLUME 81.3 fL (81-99); MONOCYTES # (AUTO) 0.9 (0.2-0.8); MONOCYTES % 8.3 % (4.4-11.3); NEUTROPHILS # (AUTO) 8.4 (2.1-6.9); NEUTROPHILS % 76.9 % (38.7-80.0); NITRITE,URINE NEGATIVE (NEGATIVE); PH,URINE 7.5 (5 - 7); PLATELET COUNT 254 x10e3/uL (140-360); PROTEIN,URINE DIPSTICK NEGATIVE (NEGATIVE); RED BLOOD COUNT 4.43 x10e6/uL (3.6-5.1); RED CELL DISTRIBUTION WIDTH 15.2 % (11.7-14.4); URINE UROBILINOGEN 0.2 mg/dL (0.2 - 1); WHITE BLOOD COUNT 10.92 x10e3/uL (4.8-10.8)
[2023-06-24] MEDS: Morphine 2mg Syringe 2 MG/ML SYR IV ONE (15:13)
[2023-06-24 15:14] LABS: BILIRUBIN,URINE NEGATIVE (NEGATIVE)
[2023-06-24 15:26] LABS: AMORPHOUS SEDIMENT,URINE MODERATE (FEW); BACTERIA,URINE FEW /HPF; EPITHELIAL CELLS,URINE MODERATE /LPF; WBC,URINE (MAN) 0-5 /HPF (0-5)
[2023-06-24 15:28] LABS: INR 1.05; PROTHROMBIN TIME 14.4 seconds (11.9-14.5)
[2023-06-24 15:29] LABS: PARTIAL THROMBOPLASTIN TIME 29.7 seconds (23.8-35.5)
[2023-06-24 15:30] LABS: ALBUMIN 3.6 g/dL (3.5-5.0); ALBUMIN/GLOBULIN RATIO 1.1 (0.8-2.0); ANION GAP 16.5 mmol/L (8-16); BILIRUBIN,TOTAL 0.4 mg/dL (0.2-1.2); CALCIUM 10.4 mg/dL (8.4-10.2); CREATININE, SERUM 0.87 mg/dL (0.57-1.11); POTASSIUM 3.5 mmol/L (3.5-5.1)
[2023-06-24] MEDS ORDERED: IOPAMIDOL 370 MG/ML 100 ML INFUS..BTL INJ ONE (16:02)
[2023-06-24 16:45] VITALS: O2SAT 100
== END 2023-06-24 16:56 | disposition home or self-care (01) ==
LOC: ER 14:16
DX: R51.9 Headache, unspecified (principal); I10 Essential (primary) hypertension; E03.9 Hypothyroidism, unspecified; E78.5 Hyperlipidemia, unspecified; E78.00 Pure hypercholesterolemia, unspecified; F32.A Depression, unspecified; G20.A1 Parkinson's disease without dyskinesia, without mention of fluctuations; F02.80 Dementia in other diseases classified elsewhere, unspecified severity, without behavioral disturbance, psychotic disturbance, mood disturbance, and anxiety
CPT/HCPCS: 36415; 70450; 70496; 70498; 73080; 80053; 81001; 85025; 85610; 85730; 99284; J2270; J2405; Q9967